=== PATIENT | female | born 1945 | race Caucasian/White ===

== ENCOUNTER 2016-11-18 07:12 | Observation (INO) | payer MEDICARE ==
--- NOTE | 2016-11-18 08:05 | ERPHSYRPT ---
- History of Present Illness Time Seen by Provider: 11/18/16 07:17 Historian: patient Exam Limitations: no limitations Patient Subjective Stated Complaint: having chest pain for one week. intermittent. states it woke her up at 0500 today Triage Nursing Assessment: ambulated to room without difficulty. skin w/d, color normal, resp easy. states is not having pain at this time but has had it intermittently for one week. awoke this am at 0500 with heaviness in center of chest. breath sounds clear. Timing/Duration: today, hour(s) (2) Activities at Onset: sleep Quality: sharpness Location: substernal Chest Pain Radiation: jaw Severity of Pain-Max: moderate (7/10) Severity of Pain-Current: none Modifying Factors: Improves With: nothing Associated Symptoms: shortness of breath Prior Chest Pain/Cardiac Workup: heart attack Nitro Today/Relief: no nitro taken today Aspirin Treatment Today: 325 mg x 1, provided by ED Allergies/Adverse Reactions: levofloxacin [From Levaquin] Allergy (Intermediate, Verified 11/18/16 07:36) Skin Irritation STREAKS RUNNING UP VEIN Penicillins Allergy (Mild, Verified 11/18/16 07:36) Hives Home Medications: Allopurinol 300 mg [Zyloprim 300 mg] 300 mg PO DAILY 09/21/14 [History] Aspirin [Aspirin EC] 81 mg PO HS 09/21/14 [History] Levothyroxine Sodium 50 Mcg [Synthroid 50 Mcg] 25 mcg PO DAILY 09/21/14 [ History] Lovastatin 20 mg PO HS 09/21/14 [History] Metoprolol Succinate 50 mg [Toprol Xl 50 MG] 50 mg PO BID 09/21/14 [ History] Buspirone HCl 5 mg [Buspar 5 mg] 5 mg PO HS 02/25/15 [History] Valsartan/Hydrochlorothiazide [Valsartan-Hctz 320-25 mg Tab] 1 tab PO DAILY [History] Clopidogrel Bisulfate 75 mg [PLAVIX 75 MG Tablet] 75 mg PO HS 11/18/16 [ History] Eszopiclone [Lunesta] 1 mg PO HS 11/18/16 [History] Fluoxetine HCl [Prozac] 20 mg PO HS 11/18/16 [History] Hx Tetanus, Diphtheria Vaccination/Date Given: Yes (2015) Hx Influenza Vaccination/Date Given: Yes (2015) Hx Pneumococcal Vaccination/Date Given: Yes - Review of Systems Constitutional: No Symptoms Eyes: No Symptoms Ears, Nose, & Throat: No Symptoms Respiratory: No Symptoms Cardiac: Chest Pain Abdominal/Gastrointestinal: No Symptoms Genitourinary Symptoms: No Symptoms Musculoskeletal: No Symptoms Skin: No Symptoms Neurological: No Symptoms Psychological: No Symptoms Endocrine: No Symptoms Hematologic/Lymphatic: No Symptoms Immunological/Allergic: No Symptoms - Past Medical History Pertinent Past Medical History: Yes Neurological History: Migraines ENT History: No Pertinent History Cardiac History: Coronary Artery Disease, High Cholesterol, Hypertension, Myocardial Infarction ([place]) Endocrine Medical History: Hypothyroidism Musculoskeletal History: No Pertinent History, Other GI Medical History: Gallbladder Disease History: Renal Disease, Other Psycho-Social History: Anxiety, Depression Female Reproductive Disorders: No Pertinent History Other Medical History: ACUTE KIDNEY FAILURE RESOLVED, GOUT - Past Surgical History Past Surgical History: Yes Neuro Surgical History: No Pertinent History Cardiac: Cardiac Catheterization, Cardiac Stent Respiratory: No Pertinent History Gastrointestinal: Appendectomy, Cholecystectomy Genitourinary: No Pertinent History Musculoskeletal: No Pertinent History Female Surgical History: Tubal Ligation - Social History Smoking Status: Never smoker Exposure to second hand smoke: Yes Alcohol Use: None Drug Use: none Patient Lives Alone: Yes Significant Family History: heart disease, hypertension - Female History Hx Now: No - Nursing Vital Signs Temperature: 97.7 F Temperature Source: Oral Pulse Rate: 53 Respiratory Rate: 16 Pain Intensity: 8 - Physical Exam General Appearance: no apparent distress Eye Exam: PERRL/EOMI, eyes nml inspection Ears, Nose, Throat Exam: normal ENT inspection, pharynx normal Neck Exam: normal inspection, non-tender, supple, full range of motion Respiratory Exam: normal breath sounds, lungs clear, airway intact Cardiovascular Exam: regular rate/rhythm, normal heart sounds, normal peripheral pulses Gastrointestinal/Abdomen Exam: soft, normal bowel sounds Extremity Exam: normal inspection, normal range of motion Neurologic Exam: alert, oriented x 3, cooperative, normal mood/affect, nml cerebellar function, nml station & gait, sensation nml Skin Exam: normal color, warm, dry SpO2 Interpretation: normal SpO2: 95 Oxygen Delivery: Room Air - Course Nursing assessment & vital signs reviewed: Yes EKG Interpreted by Me: RATE (53), Sinus Rhythm, NORMAL AXIS, NORMAL INTERVALS, Other (Loss of anterior R forces. No acute ischemia.) Ordered Tests: Active Orders 24 hr Category Date Time Status Chief Controller Station STAT Care 11/18/16 08:08 Active EKG-ER Only STAT Care 11/18/16 08:08 Active IV Insertion STAT Care 11/18/16 08:08 Active Oxygen-ED Only NASAL CANNULA 2 lpm Care 11/18/16 08:08 Active CHEST 1 VIEW (PORTABLE) Stat Exams 11/18/16 08:09 Completed CBC W DIFF Stat Lab 11/18/16 08:18 Completed CMP Stat Lab 11/18/16 08:18 Completed PROTIME WITH INR Stat Lab 11/18/16 08:18 Completed TROPONIN Q3H Lab 11/18/16 08:18 Completed TROPONIN Q3H Lab 11/18/16 11:15 Ordered TROPONIN Q3H Lab 11/18/16 14:15 Ordered TROPONIN Q3H Lab 11/18/16 17:15 Ordered TROPONIN Q3H Lab 11/18/16 20:15 Ordered Medication Summary Discontinued Medications Generic Name Dose Route Start Last Admin Trade Name Freq PRN Reason Stop Dose Admin Aspirin 324 mg 11/18/16 08:08 11/18/16 08:26 Baby Aspirin 81 Mg Chew PO 11/18/16 08:09 324 mg STAT ONE Administration Aspirin Confirm 11/18/16 08:23 Baby Aspirin 81 Mg Chew Administered 11/18/16 08:24 Dose 324 mg .ROUTE .STK-MED ONE Famotidine 20 mg 11/18/16 08:08 11/18/16 08:26 Pepcid 20 Mg Vial IV 11/18/16 08:09 20 mg STAT ONE Administration Famotidine Confirm 11/18/16 08:23 Pepcid 20 Mg Vial Administered 11/18/16 08:24 Dose 20 mg IV .STK-MED ONE Sodium Chloride Confirm 11/18/16 08:30 Sodium Chloride 0.9% 1000 Ml Administered 11/18/16 08:31 Dose 1,000 mls @ ud .ROUTE .STK-MED ONE Sodium Chloride 500 mls @ 999 mls/hr 11/18/16 08:34 11/18/16 08:35 Sodium Chloride 0.9% 1000 Ml IV 11/18/16 09:04 999 mls/hr .Q31M STA Administration Nitroglycerin 1 gm 11/18/16 08:08 11/18/16 08:32 Nitro-Bid 2% Ud Packets TOP 11/18/16 08:09 Not Given STAT ONE Nitroglycerin Confirm 11/18/16 08:23 Nitro-Bid 2% Ud Packets Administered 11/18/16 08:24 Dose 1 gm .ROUTE .STK-MED ONE Lab/Rad Data: Laboratory Result Diagrams 11/18/16 08:18 11/18/16 08:18 Laboratory Results 11/18/16 11/18/16 11/18/16 Range/Units 08:18 08:18 08:18 WBC (4.0-10.5) K/mm3 RBC (4.1-5.4) M/mm3 Hgb (12.0-16.0) gm/dl Hct (35-47) % MCV (78-100) fl MCH (26-32) pg MCHC (32-36) g/dl RDW (11.5-14.0) % Plt Count (150-450) K/mm3 MPV (6-9.5) fl Gran % (36.0-66.0) % Lymphocytes % (24.0-44.0) % Monocytes % (0.0-12.0) % Eosinophils % (0.00-5.0) % Basophils % (0.0-0.4) % Basophils # (0-0.4) INR 0.94 (0.8-3.0) Sodium 146 H (136-145) mEq/L Potassium 3.4 L (3.5-5.1) mEq/L Chloride 105 (98-107) mEq/L Carbon Dioxide 29.3 (21-32) mEq/L Anion Gap 14.6 (5-15) MEQ/L BUN 18 (9-20) mg/dL Creatinine 1.16 (0.55-1.30) mg/dl Estimated GFR 49 ML/MIN Glucose 100 (70-110) MG/DL Calcium 8.9 (8.5-10.1) mg/dL Total Bilirubin 0.2 (0.2-1.0) mg/dL AST 14 L (15-37) U/L ALT 13 (12-78) U/L Alkaline Phosphatase 125 H (46-116) U/L Troponin I < 0.017 (0.000-0.056) ng/ml Serum Total Protein 7.2 (6.4-8.2) gm/dL Albumin 3.5 (3.4-5.0) g/dL 11/18/16 Range/Units 08:18 WBC 6.8 (4.0-10.5) K/mm3 RBC 4.59 (4.1-5.4) M/mm3 Hgb 13.0 (12.0-16.0) gm/dl Hct 41.0 (35-47) % MCV 89.3 (78-100) fl MCH 28.3 (26-32) pg MCHC 31.7 L (32-36) g/dl RDW 14.2 H (11.5-14.0) % Plt Count 246 (150-450) K/mm3 MPV 9.9 H (6-9.5) fl Gran % 64.2 (36.0-66.0) % Lymphocytes % 24.4 (24.0-44.0) % Monocytes % 7.8 (0.0-12.0) % Eosinophils % 3.2 (0.00-5.0) % Basophils % 0.4 (0.0-0.4) % Basophils # 0.03 (0-0.4) INR (0.8-3.0) Sodium (136-145) mEq/L Potassium (3.5-5.1) mEq/L Chloride (98-107) mEq/L Carbon Dioxide (21-32) mEq/L Anion Gap (5-15) MEQ/L BUN (9-20) mg/dL Creatinine (0.55-1.30) mg/dl Estimated GFR ML/MIN Glucose (70-110) MG/DL Calcium (8.5-10.1) mg/dL Total Bilirubin (0.2-1.0) mg/dL AST (15-37) U/L ALT (12-78) U/L Alkaline Phosphatase (46-116) U/L Troponin I (0.000-0.056) ng/ml Serum Total Protein (6.4-8.2) gm/dL Albumin (3.4-5.0) g/dL - Progress Progress: improved Air Movement: good Progress Note: 11/18/16 09:27 BP initially slightly low, but responded to IV fluids. No further chest pain. Discussed with : Jere Will see patient in: hospital (observation) Counseled pt/family regarding: lab results, diagnosis, need for follow-up (need for admission to further evaluate for ACS and to treat hypotension) - Departure Time of Disposition: 09:25 Departure Disposition: Observation Clinical Impression: Chest pain Qualifiers: Chest pain type: other chest pain Qualified Code(s): R07.89 - Other chest pain ; R07.8 - Other chest pain Hypotension Qualifiers: Hypotension type: other hypotension type Qualified Code(s): I95.89 - Other hypotension Condition: Stable Critical Care Time: Yes Critical Care Time(excluding separately billable procedures): 30-74 minutes
[2016-11-18] MEDS ORDERED: BABY ASPIRIN 81 MG CHEW PO ONE (08:08)
[2016-11-18] MEDS ORDERED: Pepcid 20 MG VIAL IV ONE ×2 (08:08→08:23)
[2016-11-18] MEDS ORDERED: NITRO-BID 2% UD PACKETS TOP ONE (08:08)
[2016-11-18] MEDS ORDERED: BABY ASPIRIN 81 MG CHEW ONE (08:23)
[2016-11-18] MEDS ORDERED: NITRO-BID 2% UD PACKETS ONE (08:23)
[2016-11-18 08:24] LABS: BASOPHIL % 0.4 % (0.0-0.4); Eosinophil % 3.2 % (0.00-5.0); Granulocytes % 64.2 % (36.0-66.0); Lymphocytes % 24.4 % (24.0-44.0); Mean Cell Volume 89.3 fl (78-100); Mean Corpuscular Hemoglobin 28.3 pg (26-32); Mean Platelet Volume 9.9 fl (6-9.5); Monocytes % 7.8 % (0.0-12.0); Platelet Count 246 K/mm3 (150-450); Red Blood Count 4.59 M/mm3 (4.1-5.4); Red Cell Distribution Width 14.2 % (11.5-14.0); White Blood Count 6.8 K/mm3 (4.0-10.5)
[2016-11-18] MEDS ORDERED: Sodium Chloride 0.9% 1000 ML 1,000 ML ONE (08:30)
[2016-11-18 08:43] LABS: INR 0.94 (0.8-3.0); PROTIME 10.5 SECONDS (9.95-12.35)
[2016-11-18 08:48] LABS: ALBUMIN 3.5 g/dL (3.4-5.0); ANION GAP 14.6 MEQ/L (5-15); Carbon Dioxide 29.3 mEq/L (21-32); Potassium 3.4 mEq/L (3.5-5.1)
--- NOTE | 2016-11-18 08:56 | XRAY ---
Indication: Chest pain. Comparison: October 13, 2015. Portable chest again demonstrates scattered calcified granulomas. Remaining heart and lungs unremarkable. Bony thorax intact again with mild osteopenia and degenerative changes. Impression: Stable nonacute chest with chronic features.
[2016-11-18 09:08] LABS: BILIRUBIN,TOTAL 0.2 mg/dL (0.2-1.0); Total Protein 7.2 gm/dL (6.4-8.2)
[2016-11-18] MEDS ORDERED: MILK OF MAGNESIA 30 ML PO PRN (10:29)
[2016-11-18] MEDS ORDERED: Senokot-S Tablet PO PRN (10:29)
[2016-11-18] MEDS ORDERED: Zofran 4 MG/2 ML VIAL IV PRN (10:29)
[2016-11-18] MEDS ORDERED: MAALOX ES 30 ML UNIT DOSE PO PRN (10:29)
[2016-11-18] MEDS: Toprol Xl 50 MG PO SCH ×2 (12:00→21:11)
[2016-11-18] MEDS: BUSPAR 5 MG PO SCH ×2 (12:00→21:11)
[2016-11-18] MEDS: ZYLOPRIM 300 MG PO SCH (12:00)
[2016-11-18] MEDS: SYNTHROID 25 MCG PO SCH (12:01)
[2016-11-18] MEDS: NITRO-BID 2% UD PACKETS TOP SCH ×2 (14:17→21:19)
[2016-11-18] MEDS: Sodium Chloride 0.9% 1000 ML 1,000 ML IV SCH (14:46)
[2016-11-18] MEDS: TYLENOL 325 MG PO PRN ×2 (17:19→22:04)
--- NOTE | 2016-11-18 18:57 | PCM.SSS ---
History of Present Illness - Chief Complaint Chief Complaint: hypotension. chest pain. History of Present Illness: is a 71 year old female pt of mine from [facility] with hx [place] who has been having intermittent chest pain after eating for 7-10 days. This morning it woke her at 0500 and she came to the ER for evaluation. Her CP resolved with IV pepcid in [facility] ER and she has had no chest pain since. Her troponins have been negative x 4. She had one BP of 89 systolic initially which resolved with 500cc fluid and she has had bp to 160 systolic through the afternoon. Latest bp [address] Jess Bryant, payroll director - next appointment in January. I was going to send the pt home tonight after being chest pain free all day but her initial hypotension was prior to any nitro administration, so will keep her overnight for observation. - Review of Systems Respiratory: Cough Cardiac: Chest Pain Neurological: Other (staring spell 1 wk ago, lasting about 1 minute) Psychological: Anxiety, Depression (no exacerbation) All Other Systems: Reviewed and Negative Medications & Allergies Home Medications: Home Medication List Allopurinol 300 mg [Zyloprim 300 mg] 300 mg PO DAILY 09/21/14 [History Confirmed 11/18/16] Aspirin [Aspirin EC] 81 mg PO HS 09/21/14 [History Confirmed 11/18/16] Levothyroxine Sodium 50 Mcg [Synthroid 50 Mcg] 25 mcg PO DAILY 09/21/14 [ History Confirmed 11/18/16] Lovastatin 20 mg PO HS 09/21/14 [History Confirmed 11/18/16] Metoprolol Succinate 50 mg [Toprol Xl 50 MG] 50 mg PO BID 09/21/14 [ History Confirmed 11/18/16] Buspirone HCl 5 mg [Buspar 5 mg] 5 mg PO BID 02/25/15 [History Confirmed 11/18/16] Valsartan/Hydrochlorothiazide [Valsartan-Hctz 320-25 mg Tab] 1 tab PO DAILY [History Confirmed 11/18/16] Clopidogrel Bisulfate 75 mg [PLAVIX 75 MG Tablet] 75 mg PO HS 11/18/16 [ History Confirmed 11/18/16] Eszopiclone [Lunesta] 1 mg PO HS 11/18/16 [History Confirmed 11/18/16] Fluoxetine HCl [Prozac] 20 mg PO HS 11/18/16 [History Confirmed 11/18/16] Allergies/Adverse Reactions: Allergies Allergy/AdvReac Type Severity Reaction Status Date / Time levofloxacin [From Levaquin] Allergy Intermediate Skin Verified 11/18/16 10:46 Irritation Penicillins Allergy Mild Hives Verified 11/18/16 10:46 - Past Medical History Past Medical History: Yes Neurological History: Migraines ENT History: No Pertinent History Cardiac History: Coronary Artery Disease, High Cholesterol, Hypertension, Myocardial Infarction ([place]) Respiratory History: No Pertinent History Endocrine Medical History: Hypothyroidism Musculoskelatal History: No Pertinent History, Other GI Medical History: Gallbladder Disease History: Renal Disease, Other Pyscho-Social History: Anxiety, Depression Reproductive Disorders: No Pertinent History Comment: ACUTE KIDNEY FAILURE RESOLVED, GOUT - Female History Are you now?: No - Past Surgical History Past Surgical History: Yes Neuro Surgical History: No Pertinent History Cardiac History: Cardiac Catheterization, Cardiac Stent Respiratory Surgery: No Pertinent History GI Surgical History: Appendectomy, Cholecystectomy Genitourinary Surgical Hx: No Pertinent History Musculskeletal Surgical Hx: No Pertinent History Female Surgical History: Tubal Ligation - Social History Smoking Status: Never smoker Exposure to second hand smoke: Yes Alcohol: None Drug Use: none Significant Family History: heart disease, hypertension - Physical Exam Vital Signs: Vital Signs - 24 hr Temp Pulse Pulse Resp BP Pulse Ox 11/18/16 14:20 98.2 F 50 L 18 135/61 98 11/18/16 10:35 98.4 F 53 L 18 160/66 98 11/18/16 10:20 98.4 F 53 L 18 160/66 98 11/18/16 09:38 49 L 16 105/57 11/18/16 09:33 97.7 F 53 L 16 95 11/18/16 08:20 53 L 16 97/40 96 11/18/16 07:30 97.7 F 53 L 54 L 16 121/69 95 Oxygen-Last 24 hours O2 Percentage 2 Liters = 28% General Appearance: no apparent distress, obese Neurologic Exam: alert, oriented x 3, cooperative Eye Exam: eyes nml inspection Neck Exam: normal inspection, non-tender, No mass, No lymphadenopathy Respiratory Exam: normal breath sounds, lungs clear, No crackles/rales, No rhonchi, No wheezing Cardiovascular Exam: regular rate/rhythm, normal heart sounds, No murmur Gastrointestinal/Abdomen Exam: soft, normal bowel sounds, No tenderness, No distention, No mass Back Exam: normal inspection Extremity Exam: No pedal edema, No swelling Skin Exam: normal color, warm, dry Results - Labs Lab/Micro Results: Lab Results-Last 24 Hours 11/18/16 11/18/16 11/18/16 Range/Units 11:06 14:15 17:35 Troponin I < 0.017 < 0.017 < 0.017 (0.000-0.056) ng/ml - Other Procedures and Tests Respiratory Therapy 11/19/16 05:00 EKG ONCE 11/20/16 05:00 EKG ONCE 11/21/16 05:00 EKG ONCE Assessment/Plan (1) Chest pain Current Visit: Yes Status: Acute Qualifiers: Chest pain type: other chest pain Qualified Code(s): R07.89 - Other chest pain; R07.8 - Other chest pain Assessment & Plan: [place] ruled out. Keep pt on telemetry overnight. Code(s): R07.9 - CHEST PAIN, UNSPECIFIED (2) Hypotension Current Visit: Yes Status: Acute Qualifiers: Hypotension type: other hypotension type Qualified Code(s): I95.89 - Other hypotension Assessment & Plan: Occured before any nitro given, apparently. will keep overnight for observation. Code(s): I95.9 - HYPOTENSION, UNSPECIFIED (3) Bronchitis Current Visit: No Status: Acute Assessment & Plan: lungs CTAB. Code(s): J40 - BRONCHITIS, NOT SPECIFIED ACUTE OR CHRONIC (4) staring episode Current Visit: Yes Status: Acute Assessment & Plan: will get EEG outpatient. (5) HTN (hypertension) Current Visit: No Status: Acute Assessment & Plan: Give prn hydralazine, continue nitro paste, and resume home meds in the morning. Code(s): I10 - ESSENTIAL (PRIMARY) HYPERTENSION Hospital Summary - Hospital Course Hospital Course: Pt admitted as described, actually being kept overnight for observation. - Vitals & Intake/Output Vital Signs: Vital Signs Temperature 98.2 F 11/18/16 14:20 Pulse Rate 50 L 11/18/16 14:20 Respiratory Rate 18 11/18/16 14:20 Blood Pressure 135/61 11/18/16 14:20 O2 Sat by Pulse Oximetry 98 11/18/16 14:20 Oxygen-Last Documented O2 Percentage 2 Liters = 28% Intake & Output: Intake & Output 11/16/16 11/17/16 11/18/16 11/19/16 11:59 11:59 11:59 11:59 Intake Total 1075 Output Total 1550 Balance -475 Weight 84.141 kg - Lab Result Diagrams: 11/18/16 08:18 11/18/16 08:18 Lab Results-Last 24 Hrs: Lab Results-Last 24 Hours 11/18/16 11/18/16 11/18/16 Range/Units 11:06 14:15 17:35 Troponin I < 0.017 < 0.017 < 0.017 (0.000-0.056) ng/ml - Procedures and Test Procedures and Tests throughout Hospitalization: Therapy Orders & Screens 11/18/16 15:13 EKG ONCE Comment: Diagnosis: hypotension. chest pain. 11/19/16 05:00 EKG ONCE Comment: Diagnosis: hypotension. chest pain. 11/20/16 05:00 EKG ONCE Comment: Diagnosis: hypotension. chest pain. 11/21/16 05:00 EKG ONCE Comment: Diagnosis: hypotension. chest pain. - Discharge Disposition: Home, Self-Care Condition: Stable Prescriptions: No Action Metoprolol Succinate 50 mg [Toprol Xl 50 MG] 50 mg PO BID Aspirin [Aspirin EC] 81 mg PO HS Allopurinol 300 mg [Zyloprim 300 mg] 300 mg PO DAILY Levothyroxine Sodium 50 Mcg [Synthroid 50 Mcg] 25 mcg PO DAILY Lovastatin 20 mg PO HS Buspirone HCl 5 mg [Buspar 5 mg] 5 mg PO BID Valsartan/Hydrochlorothiazide [Valsartan-Hctz 320-25 mg Tab] 1 tab PO DAILY Fluoxetine HCl [Prozac] 20 mg PO HS Clopidogrel Bisulfate 75 mg [PLAVIX 75 MG Tablet] 75 mg PO HS Eszopiclone [Lunesta] 1 mg PO HS Follow up with: ALEJANDRO HAYWOOD [Primary Care Provider] -
[2016-11-18] MEDS ORDERED: APRESOLINE 20 MG/ML INJ IV PRN (19:03)
[2016-11-18] MEDS: Pepcid 20 MG VIAL IV SCH ×2 (19:41→21:15)
[2016-11-18] MEDS ORDERED: ESZOPICLONE 1 MG PO SCH (22:00)
[2016-11-18] MEDS ORDERED: Prozac 20 MG PO SCH (22:00)
[2016-11-18] MEDS ORDERED: PLAVIX 75 MG Tablet PO SCH (22:00)
[2016-11-18] MEDS ORDERED: Ambien 5 MG Tablet PO SCH (22:00)
[2016-11-18] MEDS ORDERED: ECOTRIN 81 MG PO SCH (22:00)
[2016-11-18] MEDS ORDERED: NON-FORMULARY ITEM (Lovastatin [Lovastatin] 20 MG) PO SCH (22:00)
[2016-11-18] MEDS ORDERED: ZOCOR 20MG PO SCH (22:00)
[2016-11-19] MEDS: Sodium Chloride 0.9% 1000 ML 1,000 ML IV SCH (00:44)
[2016-11-19] MEDS: NITRO-BID 2% UD PACKETS TOP SCH (05:20)
[2016-11-19 07:52] VITALS: BP 155/59; PULSE 57; O2SAT 98
--- NOTE | 2016-11-19 08:30 | PCM.DS ---
Discharge Summary Date of Admission: 11/18/16 10:07 Admitting Physician: ALEJANDRO HAYWOOD Primary Care Provider: ALEJANDRO HAYWOOD Allergies Allergies levofloxacin [From Levaquin] Allergy (Intermediate, Verified 11/18/16 10:46) Skin Irritation STREAKS RUNNING UP VEIN Penicillins Allergy (Mild, Verified 11/18/16 10:46) [facility] Summary - Hospital Course Hospital Course: Pt admitted with chest pain yesterday and found to be hypotensive in the ER. She was kept overnight. Troponins negative. Hypotension resolved with 500cc NS and did not recur; in fact she has been hypertensive but one of her BP medicines was held. 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 - Vitals & Intake/Output Vital Signs: Vital Signs Temperature 98.3 F 11/19/16 07:51 Pulse Rate 57 L 11/19/16 07:51 Respiratory Rate 18 11/19/16 07:51 Blood Pressure 155/59 11/19/16 07:51 O2 Sat by Pulse Oximetry 98 11/19/16 07:51 Oxygen-Last Documented O2 Percentage 2 Liters = 28% Intake & Output: Intake & Output 11/16/16 11/17/16 11/18/16 11/19/16 11:59 11:59 11:59 11:59 Intake Total 3040 Output Total 1550 Balance 1490 Weight 84.141 kg 83.915 kg - Lab Result Diagrams: 11/18/16 08:18 11/18/16 08:18 Lab Results-Last 24 Hrs: Lab Results-Last 24 Hours 11/18/16 11/18/16 11/18/16 Range/Units 11:06 14:15 17:35 Troponin I < 0.017 < 0.017 < 0.017 (0.000-0.056) ng/ml Triglycerides (30-200) mg/dL Cholesterol (100-200) mg/dL LDL Cholesterol (5-99) mg/dL HDL Cholesterol (35-60) mg/dL Heart Disease Risk Ratio 11/18/16 11/19/16 Range/Units 20:07 05:08 Troponin I < 0.017 (0.000-0.056) ng/ml Triglycerides 30 (30-200) mg/dL Cholesterol 136 (100-200) mg/dL LDL Cholesterol 71 (5-99) mg/dL HDL Cholesterol 62 H (35-60) mg/dL Heart Disease Risk Ratio 2.2 - Procedures and Test Procedures and Tests throughout Hospitalization: Therapy Orders & Screens 11/18/16 15:13 EKG ONCE Comment: Diagnosis: hypotension. chest pain. 11/19/16 05:00 EKG ONCE Comment: Diagnosis: hypotension. chest pain. 11/20/16 05:00 EKG ONCE Comment: Diagnosis: hypotension. chest pain. 11/21/16 05:00 EKG ONCE Comment: Diagnosis: hypotension. chest pain. Discharge Exam General Appearance: no apparent distress, obese Neurologic Exam: alert, oriented x 3, cooperative Skin Exam: normal color, warm, dry Respiratory Exam: normal breath sounds, lungs clear, No crackles/rales, No rhonchi, No wheezing Cardiovascular Exam: regular rate/rhythm, normal heart sounds, murmur (I/ sys murmur R sternal border) Extremity Exam: No pedal edema, No swelling Back Exam: normal inspection Final Diagnosis/Problem List - Final Discharge Diagnosis/Problem (1) Chest pain Current Visit: Yes Status: Acute Assessment & Plan: [place] ruled out. Needs to f/u with cardiology BEATRIZ, has not had testing since [place] last year. (2) Hypotension Current Visit: Yes Status: Acute Assessment & Plan: Resolved with 500 cc NS. (3) Bronchitis Current Visit: No Status: Acute Assessment & Plan: Stable. Lungs are clear this morning. (4) staring episode Current Visit: Yes Status: Acute Assessment & Plan: Will order EEG outpatient. (5) HTN (hypertension) Current Visit: No Status: Acute Assessment & Plan: Restart home meds. D/c home today. (6) Bradycardia Current Visit: Yes Status: Acute Assessment & Plan: HR from 48-57 here ; EKG shows sinus bradycardia. Pt is stable and asx. On Toprol. - Discharge Disposition: Home, Self-Care Condition: Stable Prescriptions: Continue Metoprolol Succinate 50 mg [Toprol Xl 50 MG] 50 mg PO BID Aspirin [Aspirin EC] 81 mg PO HS Allopurinol 300 mg [Zyloprim 300 mg] 300 mg PO DAILY Levothyroxine Sodium 50 Mcg [Synthroid 50 Mcg] 25 mcg PO DAILY Lovastatin 20 mg PO HS Buspirone HCl 5 mg [Buspar 5 mg] 5 mg PO BID Valsartan/Hydrochlorothiazide [Valsartan-Hctz 320-25 mg Tab] 1 tab PO DAILY Fluoxetine HCl [Prozac] 20 mg PO HS Clopidogrel Bisulfate 75 mg [PLAVIX 75 MG Tablet] 75 mg PO HS Eszopiclone [Lunesta] 1 mg PO HS Follow up with: ALEJANDRO HAYWOOD [Primary Care Provider] - Call for Appointment
[2016-11-19] MEDS: SYNTHROID 25 MCG PO SCH (09:07)
[2016-11-19] MEDS: BUSPAR 5 MG PO SCH (09:07)
[2016-11-19] MEDS: Toprol Xl 50 MG PO SCH (09:09)
[2016-11-19] MEDS: Pepcid 20 MG VIAL IV SCH (09:09)
[2016-11-19] MEDS: ZYLOPRIM 300 MG PO SCH (09:09)
[2016-11-19] MEDS ORDERED: Ecotrin 325 MG PO SCH (10:00)
[2016-11-19] MEDS ORDERED: DIOVAN 80 MG PO SCH (10:00)
[2016-11-19] MEDS ORDERED: hydroDIURIL 25 MG PO SCH (10:00)
[2016-11-19] MEDS ORDERED: SYNTHROID 50 MCG PO SCH (10:00)
== END 2016-11-19 09:45 | disposition home or self-care (01) ==
LOC: ED 07:12 → MED SURG 10:07
PROVIDERS: ADMIT Family Medicine; ATTEND Family Medicine
DX: R07.9 Chest pain, unspecified (principal); I95.9 Hypotension, unspecified; J40 Bronchitis, not specified as acute or chronic; I10 Essential (primary) hypertension; R40.4 Transient alteration of awareness; I49.8 Other specified cardiac arrhythmias; I25.10 Atherosclerotic heart disease of native coronary artery without angina pectoris; E03.9 Hypothyroidism, unspecified; F41.8 Other specified anxiety disorders; Z79.899 Other long term (current) drug therapy; I25.2 Old myocardial infarction
CPT/HCPCS: 36000; 36415; 71010; 80053; 80061; 83721; 84484; 85025; 85610; 93005; 93041; 93268; 96360; 96361; 96374; 99285; G0378; A9270-GY

== ENCOUNTER 2016-12-19 00:34 | Emergency (ER) | payer MEDICARE ==
[2016-12-19 00:44] VITALS: O2SAT 97
--- NOTE | 2016-12-19 00:57 | ERPHSYRPT ---
- History of Present Illness Time Seen by Provider: 12/19/16 00:45 Source: patient, EMS Exam Limitations: no limitations Patient Subjective Stated Complaint: PT STATES SHE HAS BEEN WEAK RECENTLY AND FELL TONIGHT. DENIES LOC. DENIES HITTING HEAD. Triage Nursing Assessment: PT ALERT AND ORIENTED, ANSWERS QUESTIONS APPROP. RESPIRATIONS NONLABORED WITH LUNGS CTA. BRUISES NOTED TO BILAT UPPER EXT PT STATES FROM IV STICKS. 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 PUPILS EQUAL AND REACTIVE. Physician History: Pt. states she was trying to plug in her phone at the table, when she fell backward. No LOC. She was unabloe to awaken her daughter, but had neighbor help her. Since she was unable to get up, they called 911, who felt she should be evaluated in ED. No recent meds changes except decrease in Lopressor from 50 to 25. No missed meds. She had recent UTI with antibiotics completed. Occurred: just prior to arrival Reason for Fall: unknown Injuries/Pain Location: no injury Loss of Consciousness: no loss of consciousness Quality: other (skin tear left elbow. No ) Severity of Pain-Max: none Severity of Pain-Current: none Associated Symptoms (Fall): denies symptoms Allergies/Adverse Reactions: levofloxacin [From Levaquin] Allergy (Intermediate, Verified 12/19/16 00:55) Skin Irritation STREAKS RUNNING UP VEIN Penicillins Allergy (Mild, Verified 12/19/16 00:55) Hives Home Medications: Allopurinol 300 mg [Zyloprim 300 mg] 300 mg PO DAILY 09/21/14 [History] Aspirin [Aspirin EC] 81 mg PO HS 09/21/14 [History] Levothyroxine Sodium 50 Mcg [Synthroid 50 Mcg] 25 mcg PO DAILY 09/21/14 [ History] Lovastatin 20 mg PO HS 09/21/14 [History] Metoprolol Succinate 50 mg [Toprol Xl 50 MG] 50 mg PO BID 09/21/14 [ History] Buspirone HCl 5 mg [Buspar 5 mg] 5 mg PO BID 02/25/15 [History] Valsartan/Hydrochlorothiazide [Valsartan-Hctz 320-25 mg Tab] 1 tab PO DAILY [History] Clopidogrel Bisulfate 75 mg [PLAVIX 75 MG Tablet] 75 mg PO HS 11/18/16 [ History] Eszopiclone [Lunesta] 1 mg PO HS 11/18/16 [History] Fluoxetine HCl [Prozac] 20 mg PO HS 11/18/16 [History] Hx Tetanus, Diphtheria Vaccination/Date Given: Yes (2015) Hx Influenza Vaccination/Date Given: Yes (2015) Hx Pneumococcal Vaccination/Date Given: Yes Immunizations Up to Date: Yes - Review of Systems Constitutional: Weakness Eyes: No Symptoms Ears, Nose, & Throat: No Symptoms Respiratory: No Symptoms Cardiac: No Symptoms Abdominal/Gastrointestinal: No Symptoms Musculoskeletal: No Symptoms Skin: Other (skin tear left elbow) Neurological: No Symptoms Psychological: No Symptoms Endocrine: No Symptoms Hematologic/Lymphatic: No Symptoms Immunological/Allergic: No Symptoms - Past Medical History Pertinent Past Medical History: Yes Neurological History: Migraines ENT History: No Pertinent History Cardiac History: Coronary Artery Disease, High Cholesterol, Hypertension, Myocardial Infarction ([place]) Respiratory History: No Pertinent History Endocrine Medical History: Hypothyroidism Musculoskeletal History: No Pertinent History, Other GI Medical History: Gallbladder Disease History: Renal Disease, Other Psycho-Social History: Anxiety, Depression Female Reproductive Disorders: No Pertinent History Other Medical History: ACUTE KIDNEY FAILURE RESOLVED, GOUT. RECENT HOSPITALIZATION FOR UTI - Past Surgical History Past Surgical History: Yes Neuro Surgical History: No Pertinent History Cardiac: Cardiac Catheterization, Cardiac Stent Respiratory: No Pertinent History Gastrointestinal: Appendectomy, Cholecystectomy Genitourinary: No Pertinent History Musculoskeletal: No Pertinent History Female Surgical History: Tubal Ligation - Social History Smoking Status: Never smoker Exposure to second hand smoke: Yes Alcohol Use: None Drug Use: none Patient Lives Alone: Yes Significant Family History: heart disease, hypertension - Female History Hx Now: No - Nursing Vital Signs Nursing Vital Signs: Initial Vital Signs Temperature 97.0 F Temperature Source Oral Pulse Rate 52 Respiratory Rate 18 Blood Pressure [Right Arm] 138/42 Pain Intensity 0 - Valeri Coma Score Best Eye Response ([place]): (4) open spontaneously Best Verbal Response ([place]): (5) oriented Best Motor Response ([place]): (6) obeys commands Valeri Total: 15 - Physical Exam General Appearance: no apparent distress Head Injury: no evidence of injury Eye Exam: PERRL/EOMI, eyes nml inspection ENT Exam: airway nml Neck Exam: supple, trachea midline, full range of motion, normal alignment Respiratory/Chest Exam: normal breath sounds Cardiovascular Exam: normal heart sounds, regular rate/rhythm Gastrointestinal Exam: soft, normal bowel sounds Back Exam: normal inspection, normal range of motion Extremity Exam: normal inspection, normal range of motion, capillary refill <3 sec, pelvis stable Neurologic Exam: alert, oriented x 3, cooperative, brushing operator II-XII nml as tested, normal mood/affect Skin Exam: normal color, warm, dry, abrasion SpO2 Interpretation: normal SpO2: 97 Oxygen Delivery: Room Air - Course Nursing assessment & vital signs reviewed: Yes EKG Interpreted by Me: RATE, Sinus Rhythm, NORMAL AXIS, Right Bundle Branch Block (Incomplete), Other (Anterior loss of R forces. Unchanged from ECG of 11.19.2016. 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 STAT Care 12/19/16 00:49 Active EKG-ER Only STAT Care 12/19/16 00:44 Active IV Insertion STAT Care 12/19/16 00:44 Active Orthostatic Vital Signs STAT Care 12/19/16 01:03 Active UA W/RFX UR CULTURE Stat Lab 12/19/16 01:03 Uncollected Medication Summary Generic Name Dose Route Start Last Admin Trade Name Freq PRN Reason Stop Dose Admin Sodium Chloride 1,000 mls @ 999 mls/hr 12/19/16 01:10 Sodium Chloride 0.9% 1000 Ml IV 12/19/16 02:10 .Q1H1M STA - Progress Progress: improved Will see patient in: other (PCP 2 days) Counseled pt/family regarding: lab results, diagnosis, need for follow-up - Departure Time of Disposition: 01:30 Departure Disposition: Home (0130) Clinical Impression: Orthostatic hypotension Fall Qualifiers: Encounter type: initial encounter Qualified Code(s): W19.XXXA - Unspecified fall, initial encounter Condition: Stable Critical Care Time: No
[2016-12-19] MEDS ORDERED: Sodium Chloride 0.9% 1000 ML 1,000 ML IV STA (01:10)
[2016-12-19] MEDS ORDERED: Sodium Chloride 0.9% 1000 ML 1,000 ML ONE (01:16)
[2016-12-19 02:10] LABS: ADD URINE CULTURE? YES (NO); Bacteria RARE /HPF (NEGATIVE); COMPLETE URINE MICROSCOPIC? YES; Collection Type CLEAN CATCH; Epithelial Cells FEW /HPF (FEW); Ph 6.5 (5-6)
[2016-12-19 02:38] VITALS: BP 109/59; PULSE 50
== END 2016-12-19 02:49 | disposition home or self-care (01) ==
LOC: ED 00:34
DX: I95.1 Orthostatic hypotension (principal); W01.0XXA Fall on same level from slipping, tripping and stumbling without subsequent striking against object, initial encounter; Z79.899 Other long term (current) drug therapy
CPT/HCPCS: 36000; 81000; 87086; 93005; 93041; 96360; 99284; 99285

== ENCOUNTER 2019-08-24 18:33 | Emergency (ER) | payer MEDICARE ==
--- NOTE | 2019-08-24 18:50 | ERPHSYRPT ---
- History of Present Illness Time Seen by Provider: 08/24/19 18:50 Historian: patient, family Exam Limitations: no limitations Physician History: 7 with the cough and congestion for a few days. Has been on doxycycline and prednisone. Started having left-sided chest pain today few hours ago which is resolved now. Also has a continuous cough. The and right lower quadrant pain patient does not have appendix. Also had some nausea vomiting. Timing/Duration: today, day(s) Activities at Onset: rest Quality: pressure, sharpness Location: substernal, abdomen Chest Pain Radiation: arm (left) Severity of Pain-Max: moderate Severity of Pain-Current: moderate Modifying Factors: Improves With: nothing Associated Symptoms: nausea, vomiting, abdominal pain, cough, hurts to breathe, chills, headache Nitro Today/Relief: no nitro taken today Aspirin Treatment Today: no aspirin today Allergies/Adverse Reactions: levofloxacin [From Levaquin] Allergy (Intermediate, Verified 08/24/19 18:48) Skin Irritation STREAKS RUNNING UP VEIN Penicillins Allergy (Mild, Verified 08/24/19 18:48) Hives Home Medications: Allopurinol 300 mg [Zyloprim 300 mg] 300 mg PO DAILY 09/21/14 [History] Aspirin [Aspirin EC] 81 mg PO HS 09/21/14 [History] Levothyroxine Sodium 50 Mcg [Synthroid 50 Mcg] 25 mcg PO DAILY 09/21/14 [ History] Lovastatin 20 mg PO HS 09/21/14 [History] Metoprolol Succinate 50 mg [Toprol Xl 50 MG] 50 mg PO BID 09/21/14 [ History] Buspirone HCl 5 mg [Buspar 5 mg] 5 mg PO BID 02/25/15 [History] Valsartan/Hydrochlorothiazide [Valsartan-Hctz 320-25 mg Tab] 1 tab PO DAILY [History] Clopidogrel Bisulfate 75 mg [PLAVIX 75 MG Tablet] 75 mg PO HS 11/18/16 [ History] Eszopiclone [Lunesta] 1 mg PO HS 11/18/16 [History] Fluoxetine HCl [Prozac] 20 mg PO HS 11/18/16 [History] Hx Tetanus, Diphtheria Vaccination/Date Given: Yes (2015) Hx Influenza Vaccination/Date Given: Yes (2015) Hx Pneumococcal Vaccination/Date Given: Yes - Review of Systems Constitutional: No Fever, No Chills Eyes: No Symptoms Ears, Nose, & Throat: No Symptoms Respiratory: Cough, No Dyspnea Cardiac: Chest Pain, No Edema, No Syncope Abdominal/Gastrointestinal: Abdominal Pain, No Nausea, No Vomiting, No Diarrhea Genitourinary Symptoms: No Dysuria Musculoskeletal: No Back Pain, No Neck Pain Skin: No Rash Neurological: No Dizziness, No Focal Weakness, No Sensory Changes Psychological: No Symptoms Endocrine: No Symptoms All Other Systems: Reviewed and Negative - Past Medical History Pertinent Past Medical History: Yes Neurological History: Migraines ENT History: No Pertinent History Cardiac History: Coronary Artery Disease, High Cholesterol, Hypertension, Myocardial Infarction ([place]) Respiratory History: No Pertinent History Endocrine Medical History: Hypothyroidism Musculoskeletal History: No Pertinent History, Other GI Medical History: Gallbladder Disease History: Renal Disease, Other Psycho-Social History: Anxiety, Depression Female Reproductive Disorders: No Pertinent History Other Medical History: ACUTE KIDNEY FAILURE RESOLVED, GOUT. RECENT HOSPITALIZATION FOR UTI - Past Surgical History Past Surgical History: Yes Neuro Surgical History: No Pertinent History Cardiac: Cardiac Catheterization, Cardiac Stent Respiratory: No Pertinent History Gastrointestinal: Appendectomy, Cholecystectomy Genitourinary: No Pertinent History Musculoskeletal: No Pertinent History Female Surgical History: Tubal Ligation - Social History Smoking Status: Never smoker Exposure to second hand smoke: Yes Alcohol Use: None Drug Use: none Patient Lives Alone: Yes Significant Family History: heart disease, hypertension - Nursing Vital Signs Nursing Vital Signs: Initial Vital Signs Temperature 97.3 F 08/24/19 18:41 Pulse Rate 76 08/24/19 18:41 Respiratory Rate 16 08/24/19 18:41 Blood Pressure 197/91 08/24/19 18:41 O2 Sat by Pulse Oximetry 95 08/24/19 18:41 Pain Scale Pain Intensity 5 - Physical Exam General Appearance: no apparent distress, alert Eye Exam: PERRL/EOMI, eyes nml inspection Ears, Nose, Throat Exam: normal ENT inspection, moist mucous membranes Neck Exam: normal inspection, non-tender, supple, full range of motion Respiratory Exam: normal breath sounds, lungs clear, No chest tenderness, No respiratory distress, No diminished breath sounds, No accessory muscle use, No prolonged expirations Cardiovascular Exam: regular rate/rhythm, normal heart sounds Gastrointestinal/Abdomen Exam: soft, normal bowel sounds, tenderness (RLQ), No distention, No mass, No guarding Back Exam: normal inspection, No CVA tenderness, No vertebral tenderness Extremity Exam: normal inspection, normal range of motion Neurologic Exam: alert, oriented x 3, cooperative, normal mood/affect, sensation nml, No motor deficits Skin Exam: normal color, warm, dry - Course Nursing assessment & vital signs reviewed: Yes EKG Interpreted by Me: RATE (77), NORMAL AXIS, NORMAL INTERVALS, NORMAL QRS, Q- wave, Non-specific ST Changes - Radiology Exams Chest X-ray Interpretation: Interpreted by me, Negative Ordered Tests: Active Orders 24 hr Category Date Time Status 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 Sewing Techniques STAT Care 08/24/19 18:50 Active EKG-ER Only STAT Care 08/24/19 18:49 Active IV Insertion STAT Care 08/24/19 18:49 Active NPO (ED) STAT Care 08/24/19 19:03 Active ABDOMEN AND PELVIS W CONTRAST [CT] Stat Exams 08/24/19 19:03 Ordered CHEST 1 VIEW (PORTABLE) Stat Exams 08/24/19 18:49 Taken BLOOD CULTURE Stat Lab 08/24/19 19:20 Received CBC W DIFF Stat Lab 08/24/19 19:04 Completed CMP Stat Lab 08/24/19 19:04 Completed Lactic Acid Stat Lab 08/24/19 19:12 Results NT PRO BNP Stat Lab 08/24/19 19:04 Completed TROPONIN Q3H Lab 08/25/19 01:00 Ordered TROPONIN Q3H Lab 08/25/19 04:00 Ordered TROPONIN Q3H Lab 08/25/19 07:00 Ordered TROPONIN Q3H Lab 08/24/19 19:04 Completed TROPONIN Q3H Lab 08/24/19 22:00 Ordered UA W/RFX UR CULTURE Stat Lab 08/24/19 19:03 Uncollected Medication Summary Generic Name Dose Route Start Last Admin Trade Name Freq PRN Reason Stop Dose Admin Sodium Chloride 1,000 mls @ 100 mls/hr 08/24/19 19:15 08/24/19 19:28 Sodium Chloride 0.9% 1000 Ml IV 09/23/19 19:14 100 mls/hr .Q10H BIRDIE Administration Heparin Sodium/Dextrose 250 mls @ 10 mls/hr 08/24/19 20:00 Heparin 25,000 Units/D5w 250ml Premix IV 09/23/19 19:59 .Q24H BIRDIE Discontinued Medications Generic Name Dose Route Start Last Admin Trade Name Arunq PRN Reason Stop Dose Admin Aspirin 324 mg 08/24/19 18:49 08/24/19 19:00 Baby Aspirin 81 Mg Chew PO 08/24/19 18:50 324 mg STAT ONE Administration Aspirin Confirm 08/24/19 18:58 Baby Aspirin 81 Mg Chew Administered 08/24/19 18:59 Dose 324 mg .ROUTE .STK-MED ONE Heparin Sodium (Beef Lung) 5,000 unit 08/24/19 19:41 Heparin 5000 Units/0.5 Ml (High Risk Med) IV 08/24/19 19:42 STAT ONE Morphine Sulfate 2 mg 08/24/19 19:03 08/24/19 19:31 Morphine Sulfate 2 Mg Inj IV 08/24/19 19:04 2 mg STAT ONE Administration Morphine Sulfate Confirm 08/24/19 19:16 Morphine Sulfate 2 Mg Inj Administered 08/24/19 19:17 Dose 2 mg .ROUTE .STK-MED ONE Ondansetron HCl 4 mg 08/24/19 19:03 08/24/19 19:30 Zofran 4 Mg/2 Ml Vial IV 08/24/19 19:04 4 mg STAT ONE Administration Ondansetron HCl Confirm 08/24/19 19:15 Zofran 4 Mg/2 Ml Vial Administered 08/24/19 19:16 Dose 4 mg .ROUTE .STK-MED ONE Pantoprazole Sodium 40 mg 08/24/19 19:03 08/24/19 19:29 Protonix 40 Mg Iv IV 08/24/19 19:04 40 mg STAT ONE Administration Pantoprazole Sodium Confirm 08/24/19 19:16 Protonix 40 Mg Iv Administered 08/24/19 19:17 Dose 40 mg IV .STK-MED ONE Sucralfate 1 g 08/24/19 19:03 08/24/19 19:29 Carafate 1 Gm PO 08/24/19 19:04 1 g STAT ONE Administration Sucralfate Confirm 08/24/19 19:17 Carafate 1 Gm Administered 08/24/19 19:18 Dose 1 g PO .STK-MED ONE Lab/Rad Data: Laboratory Result Diagrams 08/24/19 19:04 08/24/19 19:04 Laboratory Results 08/24/19 08/24/19 08/24/19 Range/Units 19:12 19:04 19:04 WBC (4.0-10.5) K/mm3 RBC (4.1-5.4) M/mm3 Hgb (12.0-16.0) gm/dl Hct (35-47) % MCV (78-100) fl MCH (26-32) pg MCHC (32-36) g/dl RDW (11.5-14.0) % Plt Count (150-450) K/mm3 MPV (6-9.5) fl Gran % (36.0-66.0) % Eos # (Auto) (0-0.5) Absolute Lymphs (auto) (1.0-4.6) Absolute Monos (auto) (0.0-1.3) Lymphocytes % (24.0-44.0) % Monocytes % (0.0-12.0) % Eosinophils % (0.00-5.0) % Basophils % (0.0-0.4) % Absolute Granulocytes (1.4-6.9) Basophils # (0-0.4) Sodium 138 (137-145) mmol/L Potassium 3.8 (3.5-5.1) mmol/L Chloride 102 (98-107) mmol/L Carbon Dioxide 24 (22-30) mmol/L Anion Gap 15.4 H (5-15) MEQ/L BUN 17 (7-17) mg/dL Creatinine 0.75 (0.52-1.04) mg/dL Estimated GFR > 60.0 ML/MIN Glucose 168 H (74-106) mg/dL Lactic Acid 2.1 H (0.4-2.0) Calcium 9.6 (8.4-10.2) mg/dL Total Bilirubin 0.40 (0.2-1.3) mg/dL AST 39 H (14-36) U/L ALT 16 (0-35) U/L Alkaline Phosphatase 125 (38-126) U/L Troponin I 0.260 H* (0.000-0.034) ng/mL NT-Pro-B Natriuret Pep 409 (0-900) pg/mL Serum Total Protein 8.0 (6.3-8.2) g/dL Albumin 4.4 (3.5-5.0) g/dL 08/24/19 Range/Units 19:04 WBC 7.4 (4.0-10.5) K/mm3 RBC 4.75 (4.1-5.4) M/mm3 Hgb 13.3 (12.0-16.0) gm/dl Hct 42.0 (35-47) % MCV 88.4 (78-100) fl MCH 28.0 (26-32) pg MCHC 31.7 L (32-36) g/dl RDW 16.0 H (11.5-14.0) % Plt Count 289 (150-450) K/mm3 MPV 9.3 (6-9.5) fl Gran % 88.9 H (36.0-66.0) % Eos # (Auto) 0 (0-0.5) Absolute Lymphs (auto) 0.64 L (1.0-4.6) Absolute Monos (auto) 0.18 (0.0-1.3) Lymphocytes % 8.6 L (24.0-44.0) % Monocytes % 2.4 (0.0-12.0) % Eosinophils % 0.0 (0.00-5.0) % Basophils % 0.1 (0.0-0.4) % Absolute Granulocytes 6.59 (1.4-6.9) Basophils # 0.01 (0-0.4) Sodium (137-145) mmol/L Potassium (3.5-5.1) mmol/L Chloride (98-107) mmol/L Carbon Dioxide (22-30) mmol/L Anion Gap (5-15) MEQ/L BUN (7-17) mg/dL Creatinine (0.52-1.04) mg/dL Estimated GFR ML/MIN Glucose (74-106) mg/dL Lactic Acid (0.4-2.0) Calcium (8.4-10.2) mg/dL Total Bilirubin (0.2-1.3) mg/dL AST (14-36) U/L ALT (0-35) U/L Alkaline Phosphatase (38-126) U/L Troponin I (0.000-0.034) ng/mL NT-Pro-B Natriuret Pep (0-900) pg/mL Serum Total Protein (6.3-8.2) g/dL Albumin (3.5-5.0) g/dL - Progress Progress: improved Air Movement: good Progress Note: 08/24/19 19:38 NON STEMI. I called [facility], where pt's Sign Language Instructor is . 08/24/19 19:40 I am on hold with [facility] 08/24/19 19:47 Dr. Donnelly accepted the pt at [facility] ER. Pt stable Counseled pt/family regarding: lab results, diagnosis, rad results - Departure Departure Disposition: Transfer Clinical Impression: Non-STEMI (non-ST elevated myocardial infarction) Condition: Stable Critical Care Time: Yes Critical Care Time(excluding separately billable procedures): Critical 30-74 mins Referrals: ALEJANDRO HAYWOOD [Primary Care Provider] -
[2019-08-24] MEDS ORDERED: BABY ASPIRIN 81 MG CHEW ONE (18:58)
[2019-08-24] MEDS: BABY ASPIRIN 81 MG CHEW PO ONE (19:00)
[2019-08-24] MEDS ORDERED: Zofran 4 MG/2 ML VIAL ONE (19:15)
[2019-08-24 19:16] LABS: Absolute Neutrophil Ct (ANC) 6.59 (1.4-6.9); BASOPHIL % 0.1 % (0.0-0.4); Basophil (Absolute #) 0.01 (0-0.4); Eosinophil (Absolute #) 0 (0-0.5); Hemoglobin 13.3 gm/dl (12.0-16.0); Lymphocyte (Absolute #) 0.64 (1.0-4.6); Lymphocytes % 8.6 % (24.0-44.0); Mean Cell Volume 88.4 fl (78-100); Mean Corpuscular Hgb Concent. 31.7 g/dl (32-36); Mean Platelet Volume 9.3 fl (6-9.5); Monocyte (Absolute #) 0.18 (0.0-1.3); Monocytes % 2.4 % (0.0-12.0); Neutrophil % 88.9 % (36.0-66.0); Platelet Count 289 K/mm3 (150-450); Red Blood Count 4.75 M/mm3 (4.1-5.4); White Blood Count 7.4 K/mm3 (4.0-10.5)
[2019-08-24] MEDS ORDERED: MORPHINE SULFATE 2 MG INJ ONE (19:16)
[2019-08-24] MEDS ORDERED: PROTONIX 40 MG IV IV ONE (19:16)
[2019-08-24] MEDS ORDERED: Sodium Chloride 0.9% 1000 ML 1,000 ML ONE ×2 (19:17→20:50)
[2019-08-24] MEDS ORDERED: Carafate 1 GM PO ONE (19:17)
[2019-08-24 19:19] LABS: Lactic Acid 2.1 (0.4-2.0)
[2019-08-24 19:22] LABS: ALBUMIN 4.4 g/dL (3.5-5.0); ALKALINE PHOSPHATASE 125 U/L (38-126); ANION GAP 15.4 MEQ/L (5-15); BLOOD UREA NITROGEN 17 mg/dL (7-17); CHLORIDE 102 mmol/L (98-107); Calcium 9.6 mg/dL (8.4-10.2); Carbon Dioxide 24 mmol/L (22-30); Creatinine 1 0.75 mg/dL (0.52-1.04); Glucose 168 mg/dL (74-106); NT PRO BNP 409 pg/mL (0-900); Potassium 3.8 mmol/L (3.5-5.1); SGOT/AST 39 U/L (14-36); SGPT/ALT 16 U/L (0-35); SODIUM 138 mmol/L (137-145)
[2019-08-24] MEDS: Sodium Chloride 0.9% 1000 ML 1,000 ML IV SCH (19:28)
[2019-08-24] MEDS: Carafate 1 GM PO ONE (19:29)
[2019-08-24] MEDS: PROTONIX 40 MG IV IV ONE (19:29)
[2019-08-24] MEDS: Zofran 4 MG/2 ML VIAL IV ONE (19:30)
[2019-08-24] MEDS: MORPHINE SULFATE 2 MG INJ IV ONE (19:31)
[2019-08-24] MEDS ORDERED: Heparin 25,000 units/D5W 250ML PREMIX 25,000 UNITS/250 ML BAG IV SCH (20:00)
[2019-08-24] MEDS ORDERED: NITRO-BID 2% UD PACKETS ONE (20:50)
[2019-08-24] MEDS ORDERED: Heparin 5000 UNITS/0.5 ML (HIGH RISK MED) ONE (20:50)
[2019-08-24] MEDS: NITRO-BID 2% UD PACKETS TOP ONE (21:14)
[2019-08-24] MEDS: Heparin 5000 UNITS/0.5 ML (HIGH RISK MED) IV ONE (21:15)
[2019-08-24] MEDS: Heparin 25,000 units/D5W 250ML PREMIX 25,000 UNITS/250 ML BAG IV SCH (21:16)
[2019-08-24 21:26] VITALS: BP 167/77; PULSE 81; O2SAT 97
[2019-08-24 22:01] LABS: Appearance CLEAR (CLEAR); Bilirubin NEGATIVE (NEGATIVE); Blood NEGATIVE Ery/ul (0-5); Glucose NEGATIVE (NEGATIVE); Ketones NEGATIVE (NEGATIVE); Leukocyte Esterase NEGATIVE (NEGATIVE); Mucus SLIGHT /HPF (NEGATIVE); Nitrite NEGATIVE (NEGATIVE); Protein,Urine Dip NEGATIVE (Negative); Specific Gravity 1.046 (1.005-1.025); Urobilinogen NEGATIVE mg/dL (0-1)
--- NOTE | 2019-08-25 09:23 | XRAY ---
Indication: Cough and congestion. Comparison: August 06, 2017. Portable chest again demonstrates normal heart and lungs. Bony thorax intact again with mild osteopenia and degenerative changes. No new/acute findings.
--- NOTE | 2019-08-25 09:41 | XRAY ---
Indication: Abdomen pain. Multiple contiguous axial images obtained through the abdomen and pelvis using 80 cc of Isovue-370 contrast only. Comparison: None. Lung bases are clear. Heart is not enlarged. Small hiatal hernia. Noncontrasted stomach and bowel loops appear nonobstructed. Appendix not seen. Previous hysterectomy and cholecystectomy. No free fluid/air. Both kidneys enhance and excrete. Inferior right kidney demonstrates a 3.1 cm heterogeneous exophytic soft tissue mass worrisome for malignancy. 6 mm left mid renal cortical cyst. Hepatic/splenic calcified granulomas. Remaining liver, pancreas, spleen, adrenal glands, kidneys, ureters, and bladder appear unremarkable. Moderate scattered aortoiliac calcifications. No AAA or pathological retroperitoneal lymphadenopathy. Osseous structures demonstrates osteopenia and moderate/advanced multilevel degenerative spondylosis. Small supraumbilical ventral hernia defect with herniated omental fat. Right rectus abdominis muscle appears prominent with minimal stranding, possibly posttraumatic such as acute strain injury. Impression: 1. 3.1 cm heterogeneous right renal exophytic mass concerning for malignancy. Tiny left renal cyst. 2. Small hiatal hernia, small fatty ventral hernia, and evidence for old granulomatous disease. 3. Right rectus abdominis muscle prominence possibly posttraumatic. CTDI 23.13
== END 2019-08-24 21:45 | disposition short-term general hospital (02) ==
LOC: ED 18:33
DX: I21.3 ST elevation (STEMI) myocardial infarction of unspecified site (principal); Z79.899 Other long term (current) drug therapy
CPT/HCPCS: 36000; 36415; 71045; 74177; 80053; 81001; 83605; 83880; 84484; 85025; 87040; 93005; 93041; 96374; 96375; 99285; 99291; J1644; J2270; J2405; A9270-GY

== ENCOUNTER 2020-05-23 11:14 | Observation (INO) | payer MEDICARE ==
--- NOTE | 2020-05-23 11:20 | ERPHSYRPT ---
- History of Present Illness Time Seen by Provider: 05/23/20 11:19 Source: patient Exam Limitations: no limitations Physician History: This is a 75-year-old obese white female who has a history of hypertension and is taking Plavix. She also has a history of frequent falls and history of TIAs in the past. She presents with right ankle injury after a fall. Patient does not have chest pain and she does not have shortness of breath. She has no abdominal pain. She does not think she hit her head her only complaint is pain of the right ankle. Patient took all her medications this morning including her blood pressure medicine. Patient did not take her blood pressure value prior to taking her blood pressure medication. Method of Injury: fell Occurred: just prior to arrival Quality: aching, throbbing Severity of Pain-Max: moderate Severity of Pain-Current: moderate Lower Extremities Pain: ankle: right Modifying Factors: Improves With: movement (Worsens pain) Associated Symptoms: unable to bear weight Allergies/Adverse Reactions: levofloxacin [From Levaquin] Allergy (Intermediate, Verified 05/23/20 11:18) Skin Irritation STREAKS RUNNING UP VEIN Penicillins Allergy (Mild, Verified 05/23/20 11:18) Hives Home Medications: Allopurinol 300 mg [Zyloprim 300 mg] 300 mg PO DAILY 09/21/14 [History] Levothyroxine Sodium 50 Mcg [Synthroid 50 Mcg] 25 mcg PO DAILY 09/21/14 [History] Lovastatin 20 mg PO HS 09/21/14 [History] Buspirone HCl 5 mg [Buspar 5 mg] 10 mg PO DAILY 02/25/15 [History] Clopidogrel Bisulfate 75 mg [PLAVIX 75 MG Tablet] 75 mg PO HS 11/18/16 [History] Fluoxetine HCl [Prozac] 40 mg PO HS 11/18/16 [History] Bumetanide [Bumex] 1 tab PO DAILY 05/23/20 [History] Carvedilol 12.5 mg [Coreg 12.5 mg] 1 tab PO BID 05/23/20 [History] Irbesartan 150 mg [Avapro 150 MG] 1 tab PO DAILY 05/23/20 [History] Omeprazole 1 tab PO DAILY 05/23/20 [History] Potassium Chloride [Klor-Con M20] 1 tab PO DAILY 05/23/20 [History] Temazepam 15 mg [Restoril 15 MG] 1 tab PO HS 05/23/20 [History] Hx Tetanus, Diphtheria Vaccination/Date Given: Yes (2015) Hx Influenza Vaccination/Date Given: Yes (2015) Hx Pneumococcal Vaccination/Date Given: Yes Travel Risk - International Travel Have you traveled outside of the country in past 3 weeks: No - Coronavirus Screening Are you exhibiting any of the following symptoms?: No Close contact with a COVID-19 positive Pt in past 14-21 Days: No - Review of Systems Constitutional: No Symptoms Eyes: No Symptoms Ears, Nose, & Throat: No Symptoms Respiratory: No Symptoms Cardiac: No Symptoms Abdominal/Gastrointestinal: No Symptoms Genitourinary Symptoms: No Symptoms Musculoskeletal: Injury (Right ankle) Skin: No Symptoms Neurological: No Symptoms Psychological: No Symptoms Endocrine: No Symptoms Hematologic/Lymphatic: No Symptoms Immunological/Allergic: No Symptoms All Other Systems: Reviewed and Negative - Past Medical History Pertinent Past Medical History: Yes Neurological History: Migraines ENT History: No Pertinent History Cardiac History: Coronary Artery Disease, High Cholesterol, Hypertension, Myocardial Infarction ([place]) Respiratory History: No Pertinent History Endocrine Medical History: Hypothyroidism Musculoskeletal History: No Pertinent History, Other GI Medical History: Gallbladder Disease History: Renal Disease, Other Psycho-Social History: Anxiety, Depression Female Reproductive Disorders: No Pertinent History Other Medical History: ACUTE KIDNEY FAILURE RESOLVED, GOUT. RECENT HOSPITA LIZATION FOR UTI - Past Surgical History Past Surgical History: Yes Neuro Surgical History: No Pertinent History Cardiac: Cardiac Catheterization, Cardiac Stent Respiratory: No Pertinent History Gastrointestinal: Appendectomy, Cholecystectomy Genitourinary: No Pertinent History Musculoskeletal: No Pertinent History Female Surgical History: Tubal Ligation - Social History Smoking Status: Never smoker Exposure to second hand smoke: Yes Alcohol Use: None Drug Use: none Patient Lives Alone: Yes Significant Family History: heart disease, hypertension - Nursing Vital Signs Nursing Vital Signs: Initial Vital Signs Temperature 98.2 F 05/23/20 11:18 Pulse Rate 64 05/23/20 11:18 Respiratory Rate 18 05/23/20 11:18 Blood Pressure 85/57 05/23/20 11:18 O2 Sat by Pulse Oximetry 97 05/23/20 11:18 Pain Scale Pain Intensity 5 - Physical Exam General Appearance: no apparent distress, alert, anxiety, obese Eyes, Ears, Nose, Throat Exam: normal ENT inspection, moist mucous membranes Neck Exam: normal inspection, non-tender, supple, full range of motion Cardiovascular/Respiratory Exam: chest non-tender, normal breath sounds, regular rate/rhythm Gastrointestinal/Abdominal Exam: non-tender Back Exam: normal inspection, normal range of motion, No CVA tenderness, No vertebral tenderness Hips Exam: bilateral: non-tender, normal inspection, normal range of motion, no evidence of injury Legs Exam: bilateral leg: non-tender, normal inspection, normal range of motion, no evidence of injury Knees Exam: bilateral knee: non-tender, normal inspection, normal range of motion, no evidence of injury Ankle Exam: right ankle: bone tenderness, deformity, limited range of motion, pain, soft tissue tenderness, swelling, other (Strong pedal pulses that are palpable), left ankle: non-tender, normal inspection, normal range of motion, no evidence of injury Foot Exam: bilateral foot: non-tender, normal inspection, normal range of motion, no evidence of injury Neuro/Tendon Exam: normal sensation, normal motor functions, normal tendon functions Mental Status Exam: alert, oriented x 3 Skin Exam: normal color, warm, dry SpO2 Interpretation: normal O2 Delivery: Room Air - Course Nursing assessment & vital signs reviewed: Yes EKG Interpreted by Me: RATE (61), Sinus Rhythm, NORMAL AXIS, NORMAL INTERVALS, NORMAL QRS, Other (No acute ischemic changes) Ordered Tests: Active Orders 24 hr Category Date Time Status EKG-ER Only STAT Care 05/23/20 11:48 Active IV Insertion STAT Care 05/23/20 11:48 Active ANKLE (3 VIEWS) Stat Exams 05/23/20 11:23 Completed HEAD WITHOUT CONTRAST [CT] Stat Exams 05/23/20 12:14 Completed LOWER EXTREMITY WO CONTRAST [CT] Stat Exams 05/23/20 13:30 Completed CBC W DIFF Stat Lab 05/23/20 12:00 Completed CMP Stat Lab 05/23/20 12:00 Completed TROPONIN Q3H Lab 05/23/20 12:15 Completed TROPONIN Q3H Lab 05/23/20 15:15 Ordered TROPONIN Q3H Lab 05/23/20 18:15 Ordered TROPONIN Q3H Lab 05/23/20 21:15 Ordered Medication Summary Generic Name Dose Route Start Last Admin Trade Name Freq PRN Reason Stop Dose Admin Sodium Chloride 500 mls @ 500 mls/hr 05/23/20 13:34 05/23/20 13:36 Sodium Chloride 0.9% 500 Ml IV 05/23/20 14:33 500 mls/hr .Q1H ONE Administration Discontinued Medications Generic Name Dose Route Start Last Admin Trade Name Louise PRN Reason Stop Dose Admin Sodium Chloride 500 mls @ 500 mls/hr 05/23/20 11:48 05/23/20 14:12 Sodium Chloride 0.9% 500 Ml IV 05/23/20 12:47 Infused .Q1H ONE Infusion Sodium Chloride Confirm 05/23/20 12:11 Sodium Chloride 0.9% 500 Ml Administered 05/23/20 12:12 Dose 500 mls @ ud IV .STK-MED ONE Sodium Chloride Confirm 05/23/20 12:13 Sodium Chloride 0.9% 500 Ml Administered 05/23/20 12:14 Dose 500 mls @ ud IV .STK-MED ONE Sodium Chloride Confirm 05/23/20 13:19 Sodium Chloride 0.9% 500 Ml Administered 05/23/20 13:20 Dose 500 mls @ ud IV .STK-MED ONE Lorazepam Confirm 05/23/20 13:18 Ativan 2 Mg/1 Ml Vial Administered 05/23/20 13:19 Dose 2 mg .ROUTE .STK-MED ONE Lorazepam 0.5 mg 05/23/20 13:34 05/23/20 13:37 Ativan 2 Mg/1 Ml Vial IV 05/23/20 13:35 0.5 mg STAT ONE Administration Morphine Sulfate 4 mg 05/23/20 12:31 05/23/20 12:44 Morphine Sulfate 4 Mg Inj IV 05/23/20 12:32 4 mg STAT ONE Administration Morphine Sulfate Confirm 05/23/20 12:40 Morphine Sulfate 4 Mg Inj Administered 05/23/20 12:41 Dose 4 mg .ROUTE .STK-MED ONE Ondansetron HCl 4 mg 05/23/20 12:31 05/23/20 12:43 Zofran 4 Mg/2 Ml Vial IV 05/23/20 12:32 4 mg STAT ONE Administration Ondansetron HCl Confirm 05/23/20 12:40 Zofran 4 Mg/2 Ml Vial Administered 05/23/20 12:41 Dose 4 mg .ROUTE .STK-MED ONE Lab/Rad Data: Laboratory Result Diagrams 05/23/20 12:00 05/23/20 12:00 Laboratory Results 05/23/20 05/23/20 05/23/20 Range/Units 12:15 12:00 12:00 WBC 9.9 (4.0-10.5) K/mm3 RBC 4.07 L (4.1-5.4) M/mm3 Hgb 11.1 L (12.0-16.0) gm/dl Hct 36.5 (35-47) % MCV 89.7 (78-100) fl MCH 27.3 (26-32) pg MCHC 30.4 L (32-36) g/dl RDW 15.1 H (11.5-14.0) % Plt Count 285 (150-450) K/mm3 MPV 9.3 (7.5-11.0) fl Gran % 81.7 H (36.0-66.0) % Eos # (Auto) 0.06 (0-0.5) Absolute Lymphs (auto) 1.21 (1.0-4.6) Absolute Monos (auto) 0.51 (0.0-1.3) Lymphocytes % 12.2 L (24.0-44.0) % Monocytes % 5.1 (0.0-12.0) % Eosinophils % 0.6 (0.00-5.0) % Basophils % 0.4 (0.0-0.4) % Absolute Granulocytes 8.10 H (1.4-6.9) Basophils # 0.04 (0-0.4) Sodium 135 L (137-145) mmol/L Potassium 4.5 (3.5-5.1) mmol/L Chloride 98 (98-107) mmol/L Carbon Dioxide 33 H (22-30) mmol/L Anion Gap 8.9 (5-15) MEQ/L BUN 24 H (7-17) mg/dL Creatinine 1.06 H (0.52-1.04) mg/dL Estimated GFR 53.9 ML/MIN Glucose 135 H (74-106) mg/dL Calcium 9.2 (8.4-10.2) mg/dL Total Bilirubin 0.70 (0.2-1.3) mg/dL AST 19 (14-36) U/L ALT 11 (0-35) U/L Alkaline Phosphatase 131 H (38-126) U/L Troponin I < 0.012 (0.000-0.034) ng/mL Serum Total Protein 6.4 (6.3-8.2) g/dL Albumin 3.9 (3.5-5.0) g/dL - Progress Progress: improved Progress Note: 05/23/20 12:21 X-ray of right ankle shows mildly displaced and mildly angulated bimalleolar fracture with laterally subluxed talus and soft tissue swelling. 05/23/20 12:[address] Saeed, podiatry here at [facility]. He recommends a CT scan of the ankle. We will attempt to reduce this subluxed talus and then place the patient in a splint and he will see her tomorrow in his podiatry clinic. 05/23/20 13:32 We used intravenous 4 mg of morphine, 4mg of Zofran and half a milligram of intravenous Ativan to perform a reduction of her right ankle fracture. We then placed a posterior short leg splint. We also infused 500 mL of intravenous normal saline. Post neurovascular check shows the posterior tibial and dorsalis pedis pulses to be strong. There is brisk capillary refill of the toes after splint placement. 05/23/20 14:[address] Saeed again after the CAT scan of the right ankle. I made him aware of the radiologist impression. Dr. Saeed states to go ahead and let the patient be discharged to home with a sugar tong splint in place and pain control. He wants to let some of the swelling resolved before any kind of intervention. We will make arrangements for podiatric appointment. 05/23/20 14:30 Patient is to be seen at the clinic of Dr. Saeed here at [facility] next June 01 at 2 PM. Counseled pt/family regarding: lab results, diagnosis, need for follow-up, rad results - Departure Departure Disposition: Home Clinical Impression: Bimalleolar fracture of right ankle, Subluxation of tarsal joint of left foot, initial encounter, Trimalleolar fracture of ankle, closed Condition: Stable Critical Care Time: No Referrals: ALEJANDRO HARRIS [Primary Care Provider] - Additional Instructions: Nonweightbearing. Follow-up at the podiatry clinic here at [facility] with Dr. Saeed June 01, 2020 at 2 PM. Do not eat or drink anything after midnight on May 31, 2020. Hold off on your blood pressure medication tomorrow morning. Prescriptions: Hydrocodone/APAP 5-325 Tab^^^ [[place] 5-325 Tablet^^^] 1 tab PO Q8H PRN PRN #10 tablet MDD 3 PRN Reason: Pain
[2020-05-23] MEDS ORDERED: Sodium Chloride 0.9% 500 ML 500 ML IV ONE ×5 (11:48→13:34)
--- NOTE | 2020-05-23 11:53 | XRAY ---
Indication: Pain following fall. Comparison: None 3 view right ankle demonstrates mild displaced and angulated bimalleolar fractures with laterally subluxed talus and soft tissue swelling. Incidental osteopenia and large posterior/plantar heel spurs.
[2020-05-23 12:12] LABS: BASOPHIL % 0.4 % (0.0-0.4); Basophil (Absolute #) 0.04 (0-0.4); Eosinophil % 0.6 % (0.00-5.0); Eosinophil (Absolute #) 0.06 (0-0.5); Hematocrit 36.5 % (35-47); Hemoglobin 11.1 gm/dl (12.0-16.0); Lymphocyte (Absolute #) 1.21 (1.0-4.6); Lymphocytes % 12.2 % (24.0-44.0); Mean Cell Volume 89.7 fl (78-100); Mean Corpuscular Hemoglobin 27.3 pg (26-32); Mean Corpuscular Hgb Concent. 30.4 g/dl (32-36); Mean Platelet Volume 9.3 fl (7.5-11.0); Monocyte (Absolute #) 0.51 (0.0-1.3); Monocytes % 5.1 % (0.0-12.0); Neutrophil % 81.7 % (36.0-66.0); Platelet Count 285 K/mm3 (150-450); Red Blood Count 4.07 M/mm3 (4.1-5.4); Red Cell Distribution Width 15.1 % (11.5-14.0); White Blood Count 9.9 K/mm3 (4.0-10.5)
[2020-05-23 12:24] LABS: ALBUMIN 3.9 g/dL (3.5-5.0); ANION GAP 8.9 MEQ/L (5-15); BILIRUBIN,TOTAL 0.7 mg/dL (0.2-1.3); Calcium 9.2 mg/dL (8.4-10.2); Creatinine 1 1.06 mg/dL (0.52-1.04); EST GLOMERULAR FILTRATION RATE 53.9 ML/MIN; Potassium 4.5 mmol/L (3.5-5.1); Total Protein 6.4 g/dL (6.3-8.2)
[2020-05-23] MEDS ORDERED: MORPHINE SULFATE 4 MG INJ IV ONE (12:31)
[2020-05-23] MEDS ORDERED: Zofran 4 MG/2 ML VIAL IV ONE (12:31)
[2020-05-23] MEDS ORDERED: MORPHINE SULFATE 4 MG INJ ONE (12:40)
[2020-05-23] MEDS ORDERED: Zofran 4 MG/2 ML VIAL ONE (12:40)
--- NOTE | 2020-05-23 12:51 | XRAY ---
Indication: Status post fall. Multiple contiguous axial images obtained through the head without contrast. Comparison: August 05, 2019. Stable age-appropriate global atrophy, mild periventricular degenerative micro-ischemia bilaterally, and small remote infarcts left basal ganglia, right thalamus, and right mid centrum semiovale. No acute intracranial hemorrhage, abnormal extra-axial fluid collection, or mass effect. Fourth ventricle is midline without hydrocephalus. Bony calvarium intact. Continued mucosal thickening right sphenoid sinus. Remaining visualized paranasal sinuses and mastoid air cells are clear. Impression: 1. Stable atrophy, degenerative micro-ischemia, small bilateral remote infarcts, and right sphenoid sinus disease. 2. No new or acute intracranial abnormalities.
[2020-05-23] MEDS ORDERED: Ativan 2 MG/1 ML VIAL ONE (13:18)
[2020-05-23] MEDS ORDERED: Ativan 2 MG/1 ML VIAL IV ONE (13:34)
--- NOTE | 2020-05-23 14:10 | XRAY ---
Indication: Pain following fall. Fracture on same day ankle radiograph. Multiple contiguous axial images obtained through the right ankle. Two-dimensional sagittal and coronal reformatted images obtained. Comparison: None Osseous structures demineralized consistent with patient's age with large posterior/plantar heel spurs. There is nondisplaced comminuted lateral malleolus fracture with mild valgus angulation and medial malleolus fracture with fracture fragment displaced laterally. Distal most tibia also demonstrates minimally displaced vertical fracture posteriorly not visualized on radiograph. Talus is moderately subluxed laterally. There is a tiny 5-6 mm curvilinear fracture fragment interposed between the tibial plafond and medial corner of the talus presumed from the medial malleolus fracture. Subtalar joint unremarkable. Moderate surrounding soft tissue swelling. Minimal posterior tibial artery calcifications. Remaining visualized noncontrasted soft tissues are unremarkable. Impression: 1. Trimalleolar fractures as detailed with laterally subluxed talus. 2. Incidental osteopenia and large heel spurs.
[2020-05-23] MEDS ORDERED: Sodium Chloride 0.9% 1000 ML 1,000 ML IV SCH (16:15)
[2020-05-23] MEDS ORDERED: Zofran 4 MG/2 ML VIAL IV PRN (17:42)
[2020-05-23] MEDS: MORPHINE SULFATE 2 MG INJ IV PRN (19:44)
[2020-05-23] MEDS ORDERED: Restoril 15 MG PO SCH (22:00)
[2020-05-23] MEDS ORDERED: PLAVIX 75 MG Tablet PO SCH (22:00)
[2020-05-24] MEDS: MORPHINE SULFATE 2 MG INJ IV PRN ×3 (02:51→15:53)
[2020-05-24] MEDS: Sodium Chloride 0.9% 1000 ML 1,000 ML IV SCH (02:54)
[2020-05-24 05:07] LABS: Absolute Neutrophil Ct (ANC) 8.52 (1.4-6.9); BASOPHIL % 0.2 % (0.0-0.4); Basophil (Absolute #) 0.02 (0-0.4); Eosinophil % 0.5 % (0.00-5.0); Eosinophil (Absolute #) 0.05 (0-0.5); Hematocrit 34.8 % (35-47); Hemoglobin 10.6 gm/dl (12.0-16.0); Lymphocyte (Absolute #) 1.12 (1.0-4.6); Lymphocytes % 10.9 % (24.0-44.0); Mean Cell Volume 89.7 fl (78-100); Mean Corpuscular Hemoglobin 27.3 pg (26-32); Mean Corpuscular Hgb Concent. 30.5 g/dl (32-36); Monocytes % 5.8 % (0.0-12.0); Neutrophil % 82.6 % (36.0-66.0); Platelet Count 228 K/mm3 (150-450); Red Blood Count 3.88 M/mm3 (4.1-5.4); White Blood Count 10.3 K/mm3 (4.0-10.5)
[2020-05-24 05:22] LABS: ALBUMIN 3.6 g/dL (3.5-5.0); ANION GAP 9.4 MEQ/L (5-15); BILIRUBIN,TOTAL 0.6 mg/dL (0.2-1.3); Calcium 8.5 mg/dL (8.4-10.2); Creatinine 1 1.05 mg/dL (0.52-1.04); EST GLOMERULAR FILTRATION RATE 54.5 ML/MIN; Total Protein 6.4 g/dL (6.3-8.2)
--- NOTE | 2020-05-24 09:09 | PCM.HP ---
History of Present Illness - Chief Complaint Chief Complaint: Right ankle fracture History of Present Illness: is a 75 year old female patient of Dr Diane who presented to the ER yesterday after a fall in her home. She has had multiple falls in the past and has prior hx of CAD with stent placement nearly [address] Adriana Bryant, she also has a prior history of TIA and is on aspirin and plavix therapy. She reports she was feeling lightheaded and slightly dizzy prior to the fall, she is uncertain about any loss of consciousness. She denies chest pain or shortness of breath on exertion. She normally lives alone and is able to ambulate without the aid of any assistive devices. She denies any recent change in exercise tolerance and is able to walk and do her own shopping etc at her baseline. She has not seen her silk hanger in nearly a year nor had any cardiac testing done recently. She only complains of right ankle pain and was diagnosed with trimallolar ankle fracture with subluxation of the talus in the ER. - Review of Systems Constitutional: No Fever, No Chills Respiratory: No Cough, No Short Of Breath Cardiac: No Chest Pain, No Edema, No Syncope Abdominal/Gastrointestinal: No Abdominal Pain, No Nausea, No Vomiting, No Diarrhea Musculoskeletal: Fall, Injury, Joint Pain Neurological: Dizziness, No Focal Weakness, No Gait Changes, No Headache, No Parasthesia, No Sensory Changes All Other Systems: Reviewed and Negative Medications & Allergies Home Medications: Home Medication List Allopurinol 300 mg [Zyloprim 300 mg] 300 mg PO DAILY 09/21/14 [History Confirmed 05/23/20] Levothyroxine Sodium 50 Mcg [Synthroid 50 Mcg] 25 mcg PO DAILY 09/21/14 [History Confirmed 05/23/20] Buspirone HCl 5 mg [Buspar 5 mg] 10 mg PO DAILY 02/25/15 [History Confirmed 05/23/20] Clopidogrel Bisulfate 75 mg [PLAVIX 75 MG Tablet] 75 mg PO QAM 11/18/16 [History Confirmed 05/24/20] Fluoxetine HCl [Prozac] 40 mg PO DAILY 11/18/16 [History Confirmed 05/23/20] Ascorbic Acid [Vitamin C] 1,000 mg PO BID 05/23/20 [History Confirmed 05/23/20] Aspirin 81 mg PO DAILY 05/23/20 [History Confirmed 05/23/20] Atorvastatin Calcium [Lipitor] 20 mg PO DAILY 05/23/20 [History Confirmed 05/23/20] Bumetanide [Bumex] 2 mg PO DAILY 05/23/20 [History Confirmed 05/24/20] Carvedilol 12.5 mg [Coreg 12.5 mg] 0.5 tab PO BID 05/23/20 [History Confirmed 05/23/20] Cyanocobalamin (Vitamin B-12) [B-12] 1,000 mcg PO DAILY 05/23/20 [History Confirmed 05/23/20] Hydrocodone/APAP 5-325 Tab^^^ [[place] 5-325 Tablet^^^] 1 tab PO Q8H PRN PRN #10 tablet MDD 3 05/23/20 [Rx] Irbesartan 150 mg [Avapro 150 MG] 1 tab PO DAILY 05/23/20 [History Confirmed 05/23/20] Omeprazole 40 mg PO DAILY 05/23/20 [History Confirmed 05/24/20] Potassium Chloride [Klor-Con M20] 20 meq PO DAILY 05/23/20 [History Confirmed 05/24/20] Temazepam 15 mg [Restoril 15 MG] 1 tab PO HS 05/23/20 [History Confirmed 05/23/20] Allergies/Adverse Reactions: Allergies Allergy/AdvReac Type Severity Reaction Status Date / Time levofloxacin [From Levaquin] Allergy Intermediate Skin Verified 05/23/20 11:18 Irritation Penicillins Allergy Mild Hives Verified 05/23/20 11:18 - Past Medical History Past Medical History: Yes Neurological History: Migraines ENT History: No Pertinent History Cardiac History: Coronary Artery Disease, High Cholesterol, Hypertension, Myocardial Infarction ([place]) Respiratory History: No Pertinent History Endocrine Medical History: Hypothyroidism Musculoskelatal History: No Pertinent History, Other GI Medical History: Gallbladder Disease History: Renal Disease, Other Pyscho-Social History: Anxiety, Depression Reproductive Disorders: No Pertinent History Comment: ACUTE KIDNEY FAILURE RESOLVED, GOUT. RECENT HOSPITALIZATION FOR UTI - Female History Hx Last Menstrual Period: POST Are you now?: No - Past Surgical History Past Surgical History: Yes Neuro Surgical History: No Pertinent History Cardiac History: Cardiac Catheterization, Cardiac Stent Respiratory Surgery: No Pertinent History GI Surgical History: Appendectomy, Cholecystectomy Genitourinary Surgical Hx: No Pertinent History Musculskeletal Surgical Hx: No Pertinent History Female Surgical History: Tubal Ligation - Social History Smoking Status: Never smoker Exposure to second hand smoke: No Alcohol: None Drug Use: none Significant Family History: heart disease, hypertension - Physical Exam Vital Signs: Vital Signs - 24 hr Temp Pulse Resp BP Pulse Ox 05/24/20 07:27 98.6 F 93 H 16 132/60 92 L 05/24/20 07:03 91 L 05/24/20 04:00 98.4 F 97 H 20 130/69 95 05/23/20 23:38 98.8 F 101 H 20 106/57 94 L 05/23/20 19:30 92 L 05/23/20 19:20 97.4 F 76 18 143/65 97 05/23/20 18:35 97.5 F 72 16 134/60 95 05/23/20 13:40 68 16 78/40 96 05/23/20 12:42 73 18 95/73 99 05/23/20 11:18 98.2 F 64 18 85/57 97 General Appearance: no apparent distress, obese Neurologic Exam: alert, oriented x 3, cooperative Respiratory Exam: normal breath sounds, lungs clear, No respiratory distress Cardiovascular Exam: regular rate/rhythm, murmur Gastrointestinal/Abdomen Exam: soft, normal bowel sounds, No tenderness, No mass Extremity Exam: normal inspection, normal range of motion, pelvis stable Skin Exam: normal color, warm, dry, No rash Results - Labs Lab/Micro Results: Lab Results-Last 24 Hours 05/23/20 05/23/20 05/23/20 Range/Units 12:00 12:00 12:15 WBC 9.9 (4.0-10.5) K/mm3 RBC 4.07 L (4.1-5.4) M/mm3 Hgb 11.1 L (12.0-16.0) gm/dl Hct 36.5 (35-47) % MCV 89.7 (78-100) fl MCH 27.3 (26-32) pg MCHC 30.4 L (32-36) g/dl RDW 15.1 H (11.5-14.0) % Plt Count 285 (150-450) K/mm3 MPV 9.3 (7.5-11.0) fl Gran % 81.7 H (36.0-66.0) % Eos # (Auto) 0.06 (0-0.5) Absolute Lymphs (auto) 1.21 (1.0-4.6) Absolute Monos (auto) 0.51 (0.0-1.3) Lymphocytes % 12.2 L (24.0-44.0) % Monocytes % 5.1 (0.0-12.0) % Eosinophils % 0.6 (0.00-5.0) % Basophils % 0.4 (0.0-0.4) % Absolute Granulocytes 8.10 H (1.4-6.9) Basophils # 0.04 (0-0.4) Sodium 135 L (137-145) mmol/L Potassium 4.5 (3.5-5.1) mmol/L Chloride 98 (98-107) mmol/L Carbon Dioxide 33 H (22-30) mmol/L Anion Gap 8.9 (5-15) MEQ/L BUN 24 H (7-17) mg/dL Creatinine 1.06 H (0.52-1.04) mg/dL Estimated GFR 53.9 ML/MIN Glucose 135 H (74-106) mg/dL Calcium 9.2 (8.4-10.2) mg/dL Total Bilirubin 0.70 (0.2-1.3) mg/dL AST 19 (14-36) U/L ALT 11 (0-35) U/L Alkaline Phosphatase 131 H (38-126) U/L Troponin I < 0.012 (0.000-0.034) ng/mL Serum Total Protein 6.4 (6.3-8.2) g/dL Albumin 3.9 (3.5-5.0) g/dL 05/24/20 05/24/20 Range/Units 04:41 04:41 WBC 10.3 (4.0-10.5) K/mm3 RBC 3.88 L (4.1-5.4) M/mm3 Hgb 10.6 L (12.0-16.0) gm/dl Hct 34.8 L (35-47) % MCV 89.7 (78-100) fl MCH 27.3 (26-32) pg MCHC 30.5 L (32-36) g/dl RDW 15.0 H (11.5-14.0) % Plt Count 228 (150-450) K/mm3 MPV 9.0 (7.5-11.0) fl Gran % 82.6 H (36.0-66.0) % Eos # (Auto) 0.05 (0-0.5) Absolute Lymphs (auto) 1.12 (1.0-4.6) Absolute Monos (auto) 0.60 (0.0-1.3) Lymphocytes % 10.9 L (24.0-44.0) % Monocytes % 5.8 (0.0-12.0) % Eosinophils % 0.5 (0.00-5.0) % Basophils % 0.2 (0.0-0.4) % Absolute Granulocytes 8.52 H (1.4-6.9) Basophils # 0.02 (0-0.4) Sodium 135 L (137-145) mmol/L Potassium 4.0 (3.5-5.1) mmol/L Chloride 101 (98-107) mmol/L Carbon Dioxide 29 (22-30) mmol/L Anion Gap 9.4 (5-15) MEQ/L BUN 18 H (7-17) mg/dL Creatinine 1.05 H (0.52-1.04) mg/dL Estimated GFR 54.5 ML/MIN Glucose 128 H (74-106) mg/dL Calcium 8.5 (8.4-10.2) mg/dL Total Bilirubin 0.60 (0.2-1.3) mg/dL AST 16 (14-36) U/L ALT 10 (0-35) U/L Alkaline Phosphatase 119 (38-126) U/L Troponin I (0.000-0.034) ng/mL Serum Total Protein 6.4 (6.3-8.2) g/dL Albumin 3.6 (3.5-5.0) g/dL - Radiology Impressions Radiology Exams & Impressions: Radiology Procedures Category Date Time Status ANKLE (3 VIEWS) Stat Exams 05/23/20 11:23 Completed ECHO W/2D AND DOPPLER [US] Routine Exams 05/24/20 Ordered HEAD WITHOUT CONTRAST [CT] Stat Exams 05/23/20 12:14 Completed LOWER EXTREMITY WO CONTRAST [CT] Stat Exams 05/23/20 13:30 Completed Assessment/Plan (1) Trimalleolar fracture of ankle, closed Current Visit: Yes Status: Acute Assessment & Plan: Dr Saeed has consulted and plans intervention in the next day or two when swelling is improved. he states ok to continue antiplatelet therapy at this time. Code(s): S82.853A - DISPLACED TRIMALLEOLAR FRACTURE OF UNSP LOWER LEG, INIT (2) Coronary artery disease Current Visit: Yes Status: Acute Assessment & Plan: 12 lead EKG reviewed with rate 95, sinus rhythm, normal axis. nonspecific st/t wave changes. nothing acute noted. will obtain echo, no recent change in exercise tolerance. patient cleared at this time for general anesthesia and surg ical intervention. Code(s): I25.10 - ATHSCL HEART DISEASE OF [place] CORONARY ARTERY W/O ANG PCTRS (3) Hypotension Current Visit: No Status: Acute Assessment & Plan: patient is currently normotensive, with routine bumetanide use will cut fluids back to 50ml/hr, at this time continue carvedilol 6.25mg bid but hold avapro 150 mg at this time. will hold routine bumex but volume status will need to be closely monitored. Code(s): I95.9 - HYPOTENSION, UNSPECIFIED
[2020-05-24] MEDS ORDERED: NORCO 5/325 MG PO PRN (09:14)
[2020-05-24] MEDS ORDERED: NON-FORMULARY ITEM (Aspirin [Aspirin] 81 MG) PO SCH (10:00)
[2020-05-24] MEDS ORDERED: NON-FORMULARY ITEM (Omeprazole [Omeprazole] 40 MG) PO SCH (10:00)
[2020-05-24] MEDS ORDERED: FLUZONE HIGH-DOSE QUAD 2020-21 IM ONE (10:00)
[2020-05-24] MEDS ORDERED: NON-FORMULARY ITEM (Atorvastatin Calcium [Lipitor] 20 MG) PO SCH (10:00)
[2020-05-24] MEDS: SYNTHROID 25 MCG PO SCH (11:21)
[2020-05-24] MEDS: PLAVIX 75 MG Tablet PO SCH (11:21)
[2020-05-24] MEDS: ZOCOR 20MG PO SCH (11:21)
[2020-05-24] MEDS: ZYLOPRIM 300 MG PO SCH (11:21)
[2020-05-24] MEDS: ECOTRIN 81 MG PO SCH (11:21)
[2020-05-24] MEDS: Coreg 6.25 MG PO SCH ×2 (11:22→21:00)
[2020-05-24] MEDS: Prozac 20 MG PO SCH (11:22)
[2020-05-24] MEDS: Protonix 40MG Tablet PO SCH (11:22)
[2020-05-24] MEDS: BUSPAR 5 MG PO SCH (11:26)
[2020-05-25] MEDS: MORPHINE SULFATE 2 MG INJ IV PRN ×3 (00:42→18:46)
[2020-05-25 05:19] LABS: Absolute Neutrophil Ct (ANC) 6.58 (1.4-6.9); BASOPHIL % 0.2 % (0.0-0.4); Basophil (Absolute #) 0.02 (0-0.4); Eosinophil % 1.5 % (0.00-5.0); Eosinophil (Absolute #) 0.13 (0-0.5); Hematocrit 32.4 % (35-47); Hemoglobin 9.7 gm/dl (12.0-16.0); Lymphocyte (Absolute #) 1.32 (1.0-4.6); Lymphocytes % 15.2 % (24.0-44.0); Mean Cell Volume 90.3 fl (78-100); Mean Corpuscular Hgb Concent. 29.9 g/dl (32-36); Mean Platelet Volume 9.1 fl (7.5-11.0); Monocyte (Absolute #) 0.63 (0.0-1.3); Monocytes % 7.3 % (0.0-12.0); Neutrophil % 75.8 % (36.0-66.0); Platelet Count 200 K/mm3 (150-450); Red Blood Count 3.59 M/mm3 (4.1-5.4); Red Cell Distribution Width 14.9 % (11.5-14.0); White Blood Count 8.7 K/mm3 (4.0-10.5)
[2020-05-25 05:43] LABS: BLOOD UREA NITROGEN 18 mg/dL (7-17); CHLORIDE 104 mmol/L (98-107); Calcium 8.4 mg/dL (8.4-10.2); Carbon Dioxide 28 mmol/L (22-30); Creatinine 1 0.91 mg/dL (0.52-1.04); EST GLOMERULAR FILTRATION RATE > 60.0 ML/MIN; Glucose 119 mg/dL (74-106); Potassium 3.8 mmol/L (3.5-5.1); SODIUM 135 mmol/L (137-145)
--- NOTE | 2020-05-25 08:45 | PCM.NOTE ---
Date and Time: 05/25/20841 Subjective Assessment: Pt currently having 2/10 ankle pain. Tolerating po well. BP have been in the 130s-140 systolic. - Review of Systems Constitutional: No Fever Musculoskeletal: Injury Objective Exam General Appearance: no apparent distress, obese Neurologic Exam: alert, oriented x 3, cooperative Skin Exam: normal color, warm, dry, No rash Eye Exam: eyes nml inspection Ears, Nose, Throat Exam: moist mucous membranes Neck Exam: normal inspection Respiratory Exam: normal breath sounds, lungs clear Cardiovascular Exam: regular rate/rhythm, normal heart sounds, No murmur Gastrointestinal/Abdomen Exam: soft, normal bowel sounds, No tenderness, No distention, No mass, No guarding, No rebound Extremity Exam: other (RLE with splint in place; toes are warm and dry with cap rf < 2 sec.) OBJECTIVE DATA Vital Signs: Vital Signs - 24 hr Temp Pulse Resp BP Pulse Ox 05/25/20 07:45 98.5 F 84 18 138/66 91 L 05/25/20 07:36 92 L 05/25/20 04:10 97.2 F 88 16 124/59 92 L 05/24/20 23:34 98.6 F 85 18 140/65 94 L 05/24/20 20:00 98.5 F 83 20 131/59 93 L 05/24/20 19:22 92 L 05/24/20 16:00 98.2 F 83 18 144/60 93 L 05/24/20 12:00 98.2 F 88 18 134/64 93 L Pain Assessment - Last Documented Pain Intensity 1 Pain Scale Used 0-10 Pain Scale Intake and Output: Intake & Output 05/22/20 05/23/20 05/24/20 05/25/20 11:59 11:59 11:59 11:59 Intake Total 2391 2213 Output Total 300 1950 Balance 2091 263 Weight 95.254 kg 97.9 kg Lab Results: Lab Results-Last 24 Hours 05/25/20 05/25/20 Range/Units 04:52 04:52 WBC 8.7 (4.0-10.5) K/mm3 RBC 3.59 L (4.1-5.4) M/mm3 Hgb 9.7 L (12.0-16.0) gm/dl Hct 32.4 L (35-47) % MCV 90.3 (78-100) fl MCH 27.0 (26-32) pg MCHC 29.9 L (32-36) g/dl RDW 14.9 H (11.5-14.0) % Plt Count 200 (150-450) K/mm3 MPV 9.1 (7.5-11.0) fl Gran % 75.8 H (36.0-66.0) % Eos # (Auto) 0.13 (0-0.5) Absolute Lymphs (auto) 1.32 (1.0-4.6) Absolute Monos (auto) 0.63 (0.0-1.3) Lymphocytes % 15.2 L (24.0-44.0) % Monocytes % 7.3 (0.0-12.0) % Eosinophils % 1.5 (0.00-5.0) % Basophils % 0.2 (0.0-0.4) % Absolute Granulocytes 6.58 (1.4-6.9) Basophils # 0.02 (0-0.4) Sodium 135 L (137-145) mmol/L Potassium 3.8 (3.5-5.1) mmol/L Chloride 104 (98-107) mmol/L Carbon Dioxide 28 (22-30) mmol/L Anion Gap 7.0 (5-15) MEQ/L BUN 18 H (7-17) mg/dL Creatinine 0.91 (0.52-1.04) mg/dL Estimated GFR > 60.0 ML/MIN Glucose 119 H (74-106) mg/dL Calcium 8.4 (8.4-10.2) mg/dL Radiology Exams: Radiology Procedures Category Date Time Status ANKLE (3 VIEWS) Stat Exams 05/23/20 11:23 Completed ECHO W/2D AND DOPPLER [US] Routine Exams 05/24/20 11:20 Taken HEAD WITHOUT CONTRAST [CT] Stat Exams 05/23/20 12:14 Completed LOWER EXTREMITY WO CONTRAST [CT] Stat Exams 05/23/20 13:30 Completed Multi-Disciplinary Progress Notes: Multi-Disciplinary Progress Notes 05/24/20 10:20 Physical Therapy Note by Zunilda Tavarez CHART SCREEN COMPLETE. WILL BEGIN PT AFTER R ANKLE SX WHICH IS SCHEDULED FOR 05/25/20. ZUNILDA TAVAREZ PT Initialized on 05/24/20 10:20 - END OF NOTE Assessment/Plan (1) Trimalleolar fracture of ankle, closed Current Visit: Yes Status: Acute Qualifiers: Encounter type: initial encounter Laterality: right Qualified Code(s): S82.851A - Displaced trimalleolar fracture of right lower leg, initial encounter for closed fracture Assessment & Plan: Pt to have surgery when swelling has improved, per Dr. Seaed, thank you! Code(s): S82.853A - DISPLACED TRIMALLEOLAR FRACTURE OF UNSP LOWER LEG, INIT (2) Coronary artery disease Current Visit: Yes Status: Chronic Qualifiers: Coronary Disease-Associated Artery/Lesion type: [place] artery [place] vs. transplanted heart: [place] heart Associated angina: without angina Qualified Code(s): I25.10 - Atherosclerotic heart disease of [place] coronary artery without angina pectoris Assessment & Plan: Pt still on beta yareli. Code(s): I25.10 - ATHSCL HEART DISEASE OF [place] CORONARY ARTERY W/O ANG PCTRS (3) Fall Current Visit: No Status: Acute Qualifiers: Encounter type: initial encounter Qualified Code(s): W19.XXXA - Unspecified fall, initial encounter Assessment & Plan: She was hypotensive in ER; her ARB has been held and BP are 130s-140 now. Will continue to observe off the Avapro and continuing the beta yareli. Code(s): W19.XXXA - UNSPECIFIED FALL, INITIAL ENCOUNTER (4) Hypotension Current Visit: No Status: Resolved Qualifiers: Hypotension type: hypotension due to drug Qualified Code(s): I95.2 - Hypotension due to drugs Code(s): I95.9 - HYPOTENSION, UNSPECIFIED
[2020-05-25] MEDS: Sodium Chloride 0.9% 1000 ML 1,000 ML IV SCH ×2 (08:57→09:54)
[2020-05-25] MEDS: ECOTRIN 81 MG PO SCH (09:55)
[2020-05-25] MEDS: PLAVIX 75 MG Tablet PO SCH (09:56)
[2020-05-25] MEDS: Prozac 20 MG PO SCH (09:56)
[2020-05-25] MEDS: Protonix 40MG Tablet PO SCH (09:56)
[2020-05-25] MEDS: SYNTHROID 25 MCG PO SCH (09:56)
[2020-05-25] MEDS: ZOCOR 20MG PO SCH (09:56)
[2020-05-25] MEDS: Coreg 6.25 MG PO SCH ×2 (09:56→21:27)
[2020-05-25] MEDS: BUSPAR 5 MG PO SCH (09:56)
[2020-05-25] MEDS: ZYLOPRIM 300 MG PO SCH (09:56)
--- NOTE | 2020-05-25 11:32 | XRAY ---
Indication: senior living placement. Comparison: August 24, 2019. Portable chest continues to demonstrate normal heart and lungs. Bony thorax intact again with mild osteopenia and degenerative changes. No new/acute findings.
--- NOTE | 2020-05-25 12:11 | PCM.CONS ---
Podiatry HPI - Consult Date of Consultation Date: 05/25/20 Reason for Consult: ankle fracture to right Consulting Provider: ANAY LOVELACE DPM - [facility] History of Present Illness: Isabelle is a very pleasant 75-year-old female who has a history of frequent falls and hypertension. She presented to the emergency department on May 23 following a fall where she lost consciousness. Following the fall she states she had a significant amount of pain in her right ankle however she reports no other injuries. She states that she does not remember the loss of consciousness and denies any other significant injury. She was brought to the emergency room and diagnosed with a bimalleolar ankle fracture. She qualifies the pain as an aching and throbbing type pain with some light electric shootings with intermittent frequency. She states that the pain worsens with any type of movement and she is unable to bear any weight on it. Grossly to her it appears abnormal. She currently denies any other constitutional symptoms of infection. She denies any other pedal complaints. Medications & Allergies Home Medications: Home Medication List Allopurinol 300 mg [Zyloprim 300 mg] 300 mg PO DAILY 09/21/14 [History Confirmed 05/23/20] Levothyroxine Sodium 50 Mcg [Synthroid 50 Mcg] 25 mcg PO DAILY 09/21/14 [History Confirmed 05/23/20] Buspirone HCl 5 mg [Buspar 5 mg] 10 mg PO DAILY 02/25/15 [History Confirmed 05/23/20] Clopidogrel Bisulfate 75 mg [PLAVIX 75 MG Tablet] 75 mg PO QAM 11/18/16 [History Confirmed 05/24/20] Fluoxetine HCl [Prozac] 40 mg PO DAILY 11/18/16 [History Confirmed 05/23/20] Ascorbic Acid [Vitamin C] 1,000 mg PO BID 05/23/20 [History Confirmed 05/23/20] Aspirin 81 mg PO DAILY 05/23/20 [History Confirmed 05/23/20] Atorvastatin Calcium [Lipitor] 20 mg PO DAILY 05/23/20 [History Confirmed 05/23/20] Bumetanide [Bumex] 2 mg PO DAILY 05/23/20 [History Confirmed 05/24/20] Carvedilol 12.5 mg [Coreg 12.5 mg] 0.5 tab PO BID 05/23/20 [History Confirmed 05/23/20] Cyanocobalamin (Vitamin B-12) [B-12] 1,000 mcg PO DAILY 05/23/20 [History Confirmed 05/23/20] Hydrocodone/APAP 5-325 Tab^^^ [[place] 5-325 Tablet^^^] 1 tab PO Q8H PRN PRN #10 tablet MDD 3 05/23/20 [Rx] Irbesartan 150 mg [Avapro 150 MG] 1 tab PO DAILY 05/23/20 [History Confirmed 05/23/20] Omeprazole 40 mg PO DAILY 05/23/20 [History Confirmed 05/24/20] Potassium Chloride [Klor-Con M20] 20 meq PO DAILY 05/23/20 [History Confirmed 05/24/20] Temazepam 15 mg [Restoril 15 MG] 1 tab PO HS 05/23/20 [History Confirmed 05/23/20] Allergies/Adverse Reactions: Allergies Allergy/AdvReac Type Severity Reaction Status Date / Time levofloxacin [From Levaquin] Allergy Intermediate Skin Verified 05/23/20 11:18 Irritation Penicillins Allergy Mild Hives Verified 05/23/20 11:18 acetaminophen [From [place]] AdvReac Nausea Verified 05/25/20 10:53 hydrocodone [From [place]] AdvReac Nausea Verified 05/25/20 10:53 - Past Medical History Past Medical History: Yes Neurological History: Migraines ENT History: No Pertinent History Cardiac History: Coronary Artery Disease, High Cholesterol, Hypertension, Myocardial Infarction (HI) Respiratory History: No Pertinent History Endocrine Medical History: Hypothyroidism Musculoskelatal History: No Pertinent History, Other GI Medical History: Gallbladder Disease History: Renal Disease, Other Pyscho-Social History: Anxiety, Depression Reproductive Disorders: No Pertinent History Comment: ACUTE KIDNEY FAILURE RESOLVED, GOUT. RECENT HOSPITALIZATION FOR UTI - Female History Hx Last Menstrual Period: POST Are you now?: No - Past Surgical History Past Surgical History: Yes Neuro Surgical History: No Pertinent History Cardiac History: Cardiac Catheterization, Cardiac Stent Respiratory Surgery: No Pertinent History GI Surgical History: Appendectomy, Cholecystectomy Genitourinary Surgical Hx: No Pertinent History Musculskeletal Surgical Hx: No Pertinent History Female Surgical History: Tubal Ligation - Social History Smoking Status: Never smoker Exposure to second hand smoke: No Alcohol: None Drug Use: none Significant Family History: heart disease, hypertension Physical Exam - Narrative Narrative Physical Exam: Podiatry Physical Exam Vascular: DP and PT pulses are palpable to the bilateral lower extremity. There is significant ecchymosis and edema to the to the medial and lateral aspects of the right ankle. There is a fracture blister noted at the medial aspect of the heel. At the medial malleolus there looks to be a deroofed hemorrhagic fracture blister in this location. Compartments are soft and compressible no significant pain with dorsiflexion of the toes. No evidence of lymphangitis, proximal streaking or cellulitis. There is no evidence of lymphadenopathy on palpation of the popliteal or the inguinal lymph nodes Neurological: Sensation is equal and symmetrical to the bilateral lower extremity for all nerve distributions. Dermatological there appears to be a hemorrhagic fracture blister to the medial aspect of the ankle posterior and distal to the medial malleolus that is still intact at this time. There is also a serous hemorrhagic blister that appears to have been the removed due to compression of the posterior splint and sugar tong at the level of the medial malleolus of the right lower extremity. Significant ecchymosis and erythema to the bimalleolar region of the right. Does not appear that there are any areas of concern for skin necrosis due to pressure. No obvious open sores. Musculoskeletal there is crepitation on range of motion of the right ankle with significant guarding and pain. There is gross deformity with the distal aspect of the leg in a valgus angulation. Unable to obtain remaining exam due to pain. Strength and range of motion within normal limits to the left lower extremity. Results - Labs Lab/Micro Results: Lab Results-Last 24 Hours 05/25/20 05/25/20 Range/Units 04:52 04:52 WBC 8.7 (4.0-10.5) K/mm3 RBC 3.59 L (4.1-5.4) M/mm3 Hgb 9.7 L (12.0-16.0) gm/dl Hct 32.4 L (35-47) % MCV 90.3 (78-100) fl MCH 27.0 (26-32) pg MCHC 29.9 L (32-36) g/dl RDW 14.9 H (11.5-14.0) % Plt Count 200 (150-450) K/mm3 MPV 9.1 (7.5-11.0) fl Gran % 75.8 H (36.0-66.0) % Eos # (Auto) 0.13 (0-0.5) Absolute Lymphs (auto) 1.32 (1.0-4.6) Absolute Monos (auto) 0.63 (0.0-1.3) Lymphocytes % 15.2 L (24.0-44.0) % Monocytes % 7.3 (0.0-12.0) % Eosinophils % 1.5 (0.00-5.0) % Basophils % 0.2 (0.0-0.4) % Absolute Granulocytes 6.58 (1.4-6.9) Basophils # 0.02 (0-0.4) Sodium 135 L (137-145) mmol/L Potassium 3.8 (3.5-5.1) mmol/L Chloride 104 (98-107) mmol/L Carbon Dioxide 28 (22-30) mmol/L Anion Gap 7.0 (5-15) MEQ/L BUN 18 H (7-17) mg/dL Creatinine 0.91 (0.52-1.04) mg/dL Estimated GFR > 60.0 ML/MIN Glucose 119 H (74-106) mg/dL Calcium 8.4 (8.4-10.2) mg/dL Microbiology 05/24/20 09:37 Urine Culture - Preliminary Urine, Indwelling Catheter NO GROWTH TO DATE - Radiology Impressions Radiology Exams & Impressions: Radiology Procedures Category Date Time Status ANKLE (3 VIEWS) Stat Exams 05/23/20 11:23 Completed CHEST 1 VIEW (PORTABLE) Urgent Exams 05/25/20 10:34 Completed ECHO W/2D AND DOPPLER [US] Routine Exams 05/24/20 11:20 Taken HEAD WITHOUT CONTRAST [CT] Stat Exams 05/23/20 12:14 Completed LOWER EXTREMITY WO CONTRAST [CT] Stat Exams 05/23/20 13:30 Completed Assessment/Plan (1) Trimalleolar fracture of ankle, closed Current Visit: Yes Status: Acute Qualifiers: Encounter type: initial encounter Laterality: right Qualified Code(s): S82.851A - Displaced trimalleolar fracture of right lower leg, initial encounter for closed fracture Assessment & Plan: Initial patient examination and evaluation. After reviewing the radiology and CT of the right ankle determined that this is indeed a closed trimalleolar fracture of the right lower extremity which meant itself to surgical fixation. Patient is currently being managed by medical team for hypotensive episodes and frequent falls. At this time I feel it is inadvisable to move forward with surgical intervention until the soft tissue swelling and fracture blisters have subsided to some degree. My concern is over wound dehiscence and potential infection with subsequent need for hardware removal prior to bony bridging. Because of this I feel it is advisable to hold for surgical management until at the earliest next week to avoid any wound complications. Patient is in agreement with this course of action. We will prepare her for surgical intervention of open reduction internal fixation of the right ankle. Patient is to be n.p.o. prior to the surgical intervention from the midnight the day of the procedure. Patient understands that following this procedure she will likely have to stay off the ankle for at minimum 6 to 8 weeks and then be protected weightbearing for some time as well. I highly recommend that this patient is placed into a rehab facility for monitoring of her hypotensive episodes and potential for falls and subsequent injury following surgical intervention. Thank you for the consultation Code(s): S82.853A - DISPLACED TRIMALLEOLAR FRACTURE OF UNSP LOWER LEG, INIT
[2020-05-25] MEDS: PERCOCET TABLET 5/325MG PO PRN ×2 (15:22→21:27)
[2020-05-26] MEDS: PERCOCET TABLET 5/325MG PO PRN ×3 (04:13→13:44)
[2020-05-26] MEDS: Sodium Chloride 0.9% 1000 ML 1,000 ML IV SCH (07:09)
[2020-05-26] MEDS: MORPHINE SULFATE 2 MG INJ IV PRN (07:47)
--- NOTE | 2020-05-26 09:06 | PCM.DS ---
Discharge Summary Date of Admission: 05/23/20 17:15 Admitting Physician: ALEJANDRO HARRIS Primary Care Provider: ALEJANDRO HARRIS Allergies Allergies levofloxacin [From Levaquin] Allergy (Intermediate, Verified 05/23/20 11:18) Skin Irritation STREAKS RUNNING UP VEIN Penicillins Allergy (Mild, Verified 05/23/20 11:18) Hives acetaminophen [From [place]] Adverse Reaction (Verified 05/25/20 10:53) Nausea hydrocodone [From [place]] Adverse Reaction (Verified 05/25/20 10:53) Nausea Hospital Summary - Hospital Course Hospital Course: Pt is a 75 yo pt of mine from [facility] with hypertension and CAD who was admitted through ER with hypotension, a fall, and trimalleolar fracture of the R ankle. Her ARB was held and her BP have improved from 60s systolic to generally 130s- 140s systolic (she did have 88 systolic this morning while she was sleeping). Dr. Saeed saw her for her ankle fracture, thank you, and due to swelling, etc he does not plan to do surgery until next week, likely, and then the pt will require over a month of non-weightbearing rehab. Pt lives alone, so she is to be sent to [facility] for rehab. Rx written for percocet 1 po q6h prn, #42. Pain currently minimal in the R ankle, but with dressing changes goes "through the roof." - Vitals & Intake/Output Vital Signs: Vital Signs Temperature 98.4 F 05/26/20 06:55 Pulse Rate 75 05/26/20 06:55 Respiratory Rate 14 05/26/20 06:55 Blood Pressure 139/60 05/26/20 07:47 O2 Sat by Pulse Oximetry 93 L 05/26/20 07:37 Intake & Output: Intake & Output 05/23/20 05/24/20 05/25/20 05/26/20 11:59 11:59 11:59 11:59 Intake Total 2391 2213 740 Output Total 300 1950 1500 Balance 8489 263 760 Weight 95.254 kg 97.9 kg 99.5 kg 96.7 kg - Lab Result Diagrams: 05/25/20 04:52 05/25/20 04:52 Micro Results-Entire Visit: Microbiology 05/24/20 09:37 Urine Culture - Final Urine, Indwelling Catheter <10K NORMAL SKIN JACQUELINE PROBABLE SKIN CONTAMINANT - Radiology Exams Ordered Rad Exams-Entire Visit: Radiology Procedures Category Date Time Status CHEST 1 VIEW (PORTABLE) Urgent Exams 05/25/20 10:34 Completed ECHO W/2D AND DOPPLER [US] Routine Exams 05/24/20 11:20 Taken - Procedures and Test Procedures and Tests throughout Hospitalization: Therapy Orders & Screens 05/23/20 17:42 PT Eval & Treat (MD Order) ONCE Reason for Eval:: Nonweightbearing right ankle. Transferring. Plan for postoperative rehab Diagnosis: Right ankle fracture EKG REPEAT IN AM Comment: 05/23/20 19:15 OT Screen per Nursing Assess ONCE Comment: Protocol Order Physician Instructions: Greater than 3 points order OT Admission Screening Reason For Exam: Triggered on Admission Diagnosis: Right ankle fracture Open Wound/Cellutlitis/Pressure Ulcers: No Acute Fx/ORIF/Change in wt bearing status: Yes Severe MUSCULOSKELETAL pain: Yes ADL Dysfunction: Yes Acute CVA w/Hemiparesis/Hemiplegia: No Decreased Functional Mobility/Strength: Yes: ankle Fx Sprain/Strain: Yes Acute Post-op Mobility Dysfunction: No Total Points: 17 PT Screen per Nursing Assess ONCE Comment: Protocol Order Physician Instructions: Greater than 3 points order PT Admission Screenin Reason For Exam: Triggered on Admission Diagnosis: Right ankle fracture Open Wound/Cellutlitis/Pressure Ulcers: No Acute Fx/ORIF/Change in wt bearing status: Yes Severe MUSCULOSKELETAL pain: Yes ADL Dysfunction: Yes Acute CVA w/Hemiparesis/Hemiplegia: No Decreased Functional Mobility/Strength: Yes: ankle Fx Sprain/Strain: Yes Acute Post-op Mobility Dysfunction: No Total Points: 17 Discharge Exam General Appearance: no apparent distress, alert, obese Neurologic Exam: oriented x 3, cooperative Eye Exam: eyes nml inspection Ears, Nose, Throat Exam: moist mucous membranes Respiratory Exam: normal breath sounds, lungs clear, No crackles/rales, No rhonchi, No wheezing Cardiovascular Exam: regular rate/rhythm, normal heart sounds, No murmur Gastrointestinal/Abdomen Exam: soft, normal bowel sounds, No tenderness, No distention, No mass, No guarding, No rebound Extremity Exam: No pedal edema, No swelling Skin Exam: normal color, warm, dry, other (RLE wrapped; toes are warm), No rash Final Diagnosis/Problem List - Final Discharge Diagnosis/Problem (1) Trimalleolar fracture of ankle, closed Current Visit: Yes Status: Acute Assessment & Plan: Per Dr. Saeed, thank you. To [facility] for rehab before and after surgery. Code(s): S82.853A - DISPLACED TRIMALLEOLAR FRACTURE OF UNSP LOWER LEG, INIT (2) Coronary artery disease Current Visit: Yes Status: Chronic Code(s): I25.10 - ATHSCL HEART DISEASE OF [place] CORONARY ARTERY W/O ANG PCTRS (3) Fall Current Visit: No Status: Acute Code(s): W19.XXXA - UNSPECIFIED FALL, INITIAL ENCOUNTER (4) Hypotension Current Visit: No Status: Resolved Code(s): I95.9 - HYPOTENSION, UNSPECIFIED - Discharge Disposition: DC TO [facility] Condition: Stable Prescriptions: New Hydrocodone/APAP 5-325 Tab^^^ [[place] 5-325 Tablet^^^] 1 tab PO Q8H PRN PRN #10 tablet MDD 3 PRN Reason: Pain Continue Allopurinol 300 mg [Zyloprim 300 mg] 300 mg PO DAILY Levothyroxine Sodium 50 Mcg [Synthroid 50 Mcg] 25 mcg PO DAILY Buspirone HCl 5 mg [Buspar 5 mg] 10 mg PO DAILY Fluoxetine HCl [Prozac] 40 mg PO DAILY Clopidogrel Bisulfate 75 mg [PLAVIX 75 MG Tablet] 75 mg PO QAM Temazepam 15 mg [Restoril 15 MG] 1 tab PO HS Potassium Chloride [Klor-Con M20] 20 meq PO DAILY Carvedilol 12.5 mg [Coreg 12.5 mg] 0.5 tab PO BID Omeprazole 40 mg PO DAILY Bumetanide [Bumex] 2 mg PO DAILY Aspirin 81 mg PO DAILY Atorvastatin Calcium [Lipitor] 20 mg PO DAILY Ascorbic Acid [Vitamin C] 1,000 mg PO BID Cyanocobalamin (Vitamin B-12) [B-12] 1,000 mcg PO DAILY Discontinued Irbesartan 150 mg [Avapro 150 MG] 1 tab PO DAILY Additional Instructions: PRISON ORDERS: -REGULAR DIET -ROUTINE [facility] -SEE ATTACHED MEDICATION LIST FOR MEDICATION ORDERS -PT/OT EVAL AND TREAT -PATIENT TO BE NON WEIGHT BEARING ON RIGHT ANKLE -LEAVE POSTERIOR SPLINT IN PLACE AT ALL TIMES -FOLLOW UP WITH DR. STANLEY AT [facility] ON FRIDAY WITH POSSIBLE SURGERY ON FRIDAY. DO NOT give percocet with temazepam - separate by at least 4 hours. Watch for hypersomnolence or respiratory depression. Follow up with: ANAY LOVELACE DPM [ACTIVE STAFF] - 06/01/20 9:30 am
[2020-05-26] MEDS: Protonix 40MG Tablet PO SCH (09:08)
[2020-05-26] MEDS: Prozac 20 MG PO SCH (09:08)
[2020-05-26] MEDS: ZYLOPRIM 300 MG PO SCH (09:08)
[2020-05-26] MEDS: BUSPAR 5 MG PO SCH (09:08)
[2020-05-26] MEDS: SYNTHROID 25 MCG PO SCH (09:09)
[2020-05-26] MEDS: PLAVIX 75 MG Tablet PO SCH (09:09)
[2020-05-26] MEDS: ECOTRIN 81 MG PO SCH (09:09)
[2020-05-26] MEDS: Coreg 6.25 MG PO SCH (09:09)
[2020-05-26] MEDS: ZOCOR 20MG PO SCH (09:15)
[2020-05-26 12:05] VITALS: BP 96/52; PULSE 67; O2SAT 94
== END 2020-05-26 14:50 ==
LOC: ED 11:14 → MED SURG 17:15
PROVIDERS: ADMIT Family Medicine; ATTEND Family Medicine
DX: S82.851A Displaced trimalleolar fracture of right lower leg, initial encounter for closed fracture (principal); W19.XXXA Unspecified fall, initial encounter; Z79.01 Long term (current) use of anticoagulants; Z79.899 Other long term (current) drug therapy; I10 Essential (primary) hypertension; E78.00 Pure hypercholesterolemia, unspecified; I25.10 Atherosclerotic heart disease of native coronary artery without angina pectoris; E03.9 Hypothyroidism, unspecified; R42 Dizziness and giddiness; I95.9 Hypotension, unspecified
CPT/HCPCS: 36000; 36415; 70450; 71045; 73610; 73700; 80048; 80053; 84484; 85025; 87086; 93005; 93268; 93306; 94760; 96374; 96375; 97161; 97530; 99285; G0008; G0378; 90662; J2060; J2270; J2405; A9270-GY

== ENCOUNTER 2020-05-30 10:57 | Day surgery (SDC) | payer MEDICARE ==
[2020-05-30] MEDS ORDERED: SUBLIMAZE 250 MCG/5 ML ONE (11:17)
[2020-05-30] MEDS ORDERED: Versed 2 MG/2 ML Injection ONE (11:17)
[2020-05-30] MEDS ORDERED: Zemuron 100 MG/10 ML ONE (11:17)
[2020-05-30] MEDS ORDERED: Quelicin Fliptop 200 MG/10 ML ONE (11:17)
[2020-05-30] MEDS ORDERED: Amidate 20 MG/10 ML IV ONE (11:17)
[2020-05-30] MEDS ORDERED: SOD CITRATE-CITRIC ACID SOLN PO ONE ×2 (11:19→12:01)
[2020-05-30] MEDS ORDERED: Lactated Ringers 1,000 ML IV SCH (11:30)
[2020-05-30] MEDS ORDERED: BRIDION 200MG/2ML IV ONE (12:36)
[2020-05-30 13:49] VITALS: O2SAT 92
[2020-05-30 14:07] VITALS: BP 144/82; PULSE 85
--- NOTE | 2020-06-01 10:30 | OP ---
SURGERY DATE: 05/30/2020 1206 PREOPERATIVE DIAGNOSIS: Malreduction of trimalleolar fracture with necrosis of skin. POSTOPERATIVE DIAGNOSIS: Malreduction of trimalleolar fracture with necrosis of skin. PROCEDURE: Closed reduction of trimalleolar ankle fracture under fluoroscopic imaging with manipulation. SURGEON: Christophe Williamson DPM. BILLING ADMINISTRATOR: None. ANESTHESIA: General. HEMOSTASIS: None. ESTIMATED BLOOD LOSS: None. MATERIALS: None. INJECTABLES: None. DESCRIPTION OF PROCEDURE AND FINDINGS: After sufficient preoperative assessment by the anesthesia team, the patient was brought into the OR and placed on the OR table in the supine position. At this time the fluoroscopic imaging was brought in and radiographic assessment was obtained of the lower extremity. At this time an attempt at reduction was made with an surgical services assistant holding the knee in flexion while longitudinal traction was placed on the right ankle in order to realign the fibula as well as the medial malleolus underneath the ankle mortise. This occurred and the foot was held in this position while splintage was applied consisting of 4x4's, [place], 4 inch and 6 inch VIRY as well as a very well-padded posterior splint. The patient was reversed from the anesthesia and tolerated the procedure well without complication. She was returned to the postoperative anesthesia care unit with vital signs stable and vascular status intact. The patient at this time is going to be delayed as far as definitive surgical fixation due to soft tissue quality and due to malreduction. Postoperative orders as follows: 1) Nonweight bearing to the operative extremity. 2) Weight bearing to the nonoperative extremity with assistance and for transfers only. 3) Postoperative pain control [place] 5/325 mg. 4) Antibiotic prophylaxis: None. 5) Deep venous thrombosis prophylaxis 325 mg aspirin daily until weight bearing. 6) Follow up on Friday of next week in order to reassess for definitive fixation and discharge the patient to home.
== END 2020-05-30 14:20 ==
LOC: SDC 10:57
PROVIDERS: ATTEND Podiatrist Foot & Ankle Surgery
DX: S82.851A Displaced trimalleolar fracture of right lower leg, initial encounter for closed fracture (principal); I96 Gangrene, not elsewhere classified; I10 Essential (primary) hypertension; Z86.79 Personal history of other diseases of the circulatory system; M19.90 Unspecified osteoarthritis, unspecified site
CPT/HCPCS: 99100; 99140; J0330; J2250; J3010

== ENCOUNTER 2020-06-08 11:08 | Inpatient (IN) | payer MEDICARE ==
[2020-06-16] MEDS ORDERED: BUPIVACAINE 0.5% VIAL IJ ONE (07:44)
[2020-06-16] MEDS ORDERED: Lactated Ringers 1,000 ML IV ONE (07:45)
[2020-06-16] MEDS ORDERED: XYLOCAINE 1% HCL 20 ML MDV ONE (07:45)
[2020-06-16] MEDS: Lactated Ringers 1,000 ML IV SCH ×2 (10:38→18:05)
[2020-06-16] MEDS ORDERED: CLINDAMYCIN-D5W 900 MG/50 ML*** 900 MG/50 ML BAG IV SCH (11:00)
[2020-06-16] MEDS ORDERED: DIPRIVAN 200 MG/20 ML IV ONE (12:20)
[2020-06-16] MEDS ORDERED: SUBLIMAZE 100 MCG/2 ML ONE ×2 (12:20→13:21)
[2020-06-16] MEDS ORDERED: Zofran 4 MG/2 ML VIAL ONE (12:20)
[2020-06-16] MEDS ORDERED: Xylocaine-Mpf 2% 5 Ml Vial ONE (12:20)
[2020-06-16] MEDS ORDERED: Decadron 4 MG INJ ONE ×2 (12:20→15:40)
[2020-06-16] MEDS ORDERED: TORAdol 30 mg Injection ONE (12:20)
[2020-06-16] MEDS ORDERED: Ephedrine Sulfate 50 MG/ML ONE (13:18)
[2020-06-16] MEDS ORDERED: APRESOLINE 20 MG/ML INJ ONE (14:12)
[2020-06-16] MEDS ORDERED: DILAUDID 2 MG INJECTION ONE (14:26)
[2020-06-16] MEDS ORDERED: XYLOCAINE 2%/Epi 1:200000 20ML VIAL MPF ONE (15:40)
[2020-06-16] MEDS ORDERED: Naropin 0.5% 30 ML VIAL ONE (15:40)
[2020-06-16] MEDS ORDERED: TYLENOL 325 MG PO PRN (17:15)
[2020-06-16] MEDS ORDERED: NON-FORMULARY ITEM (Hydrocodone/Apap 5-325 Tab^^^ 1 TAB) PO PRN (17:15)
[2020-06-16] MEDS ORDERED: DOXYCYCLINE HYCLATE 100 MG PO SCH (17:15)
[2020-06-16] MEDS ORDERED: NORCO 5/325 MG PO PRN (17:23)
[2020-06-16] MEDS: Vitamin B-12 500 MCG PO SCH (17:41)
[2020-06-16] MEDS: BUSPAR 5 MG PO SCH (17:41)
[2020-06-16] MEDS: Klor Con 10 MEQ PO SCH (17:41)
[2020-06-16] MEDS: ZOCOR 20MG PO SCH (17:41)
[2020-06-16] MEDS: Prozac 20 MG PO SCH (17:41)
[2020-06-16] MEDS: BUMEX 1 MG PO SCH (17:41)
[2020-06-16] MEDS: SYNTHROID 25 MCG PO SCH (17:41)
[2020-06-16] MEDS: ZYLOPRIM 300 MG PO SCH (17:41)
[2020-06-16] MEDS: Ecotrin 325 MG PO SCH (17:41)
[2020-06-16] MEDS: PLAVIX 75 MG Tablet PO SCH (17:42)
[2020-06-16] MEDS: Protonix 40MG Tablet PO SCH (17:42)
[2020-06-16] MEDS: KEFLEX 500 MG PO SCH (17:42)
[2020-06-16] MEDS: ULTRAM 50 MG PO SCH (17:42)
[2020-06-16] MEDS: Coreg 6.25 MG PO SCH (21:09)
[2020-06-16] MEDS: Restoril 15 MG PO SCH (21:09)
[2020-06-16] MEDS: Vibramycin 100 MG PO SCH (21:09)
[2020-06-16] MEDS: Vitamin C 500 MG PO SCH (21:09)
[2020-06-16] MEDS ORDERED: NON-FORMULARY ITEM (Ascorbic Acid [Vitamin C] 1,000 MG) PO SCH (22:00)
--- NOTE | 2020-06-16 22:04 | XRAY ---
8 minutes 3 seconds of fluoroscopy was used in surgery for a right ankle ORIF.
--- NOTE | 2020-06-16 22:04 | XRAY ---
Indication: right ankle ORIF. Intraoperative fluoroscopy was provided for 8 minutes 3 seconds. 4 digital spot images submitted for interpretation demonstrates lateral fixation plate/8 screws fixating lateral malleolus fracture and single screw fixating medial malleolus fracture both in good apposition/alignment. Incidental multiple lateral ankle cutaneous price. Correlate with intraoperative findings/report.
[2020-06-17] MEDS: ULTRAM 50 MG PO SCH ×6 (00:18→23:53)
[2020-06-17] MEDS: KEFLEX 500 MG PO SCH ×5 (00:18→23:53)
[2020-06-17 06:19] LABS: Hematocrit 33.2 % (35-47); Hemoglobin 10.3 gm/dl (12.0-16.0); Mean Cell Volume 89.5 fl (78-100); Mean Corpuscular Hemoglobin 27.8 pg (26-32); Mean Platelet Volume 9.4 fl (7.5-11.0); Platelet Count 231 K/mm3 (150-450); Red Blood Count 3.71 M/mm3 (4.1-5.4); Red Cell Distribution Width 15.7 % (11.5-14.0); White Blood Count 10.8 K/mm3 (4.0-10.5)
[2020-06-17 06:28] LABS: ANION GAP 9.4 MEQ/L (5-15); BLOOD UREA NITROGEN 20 mg/dL (7-17); CHLORIDE 100 mmol/L (98-107); Calcium 8.8 mg/dL (8.4-10.2); Carbon Dioxide 29 mmol/L (22-30); Creatinine 1 0.88 mg/dL (0.52-1.04); EST GLOMERULAR FILTRATION RATE > 60.0 ML/MIN; Glucose 142 mg/dL (74-106); Potassium 4.2 mmol/L (3.5-5.1); SODIUM 134 mmol/L (137-145)
[2020-06-17] MEDS: Ecotrin 325 MG PO SCH (09:15)
[2020-06-17] MEDS: Prozac 20 MG PO SCH (09:15)
[2020-06-17] MEDS: PLAVIX 75 MG Tablet PO SCH (09:15)
[2020-06-17] MEDS: SYNTHROID 25 MCG PO SCH (09:15)
[2020-06-17] MEDS: Vitamin B-12 500 MCG PO SCH (09:15)
[2020-06-17] MEDS: Protonix 40MG Tablet PO SCH (09:15)
[2020-06-17] MEDS: ZYLOPRIM 300 MG PO SCH (09:15)
[2020-06-17] MEDS: BUMEX 1 MG PO SCH (09:15)
[2020-06-17] MEDS: Vibramycin 100 MG PO SCH ×2 (09:15→21:41)
[2020-06-17] MEDS: Klor Con 10 MEQ PO SCH (09:15)
[2020-06-17] MEDS: Coreg 6.25 MG PO SCH ×2 (09:15→21:41)
[2020-06-17] MEDS: ZOCOR 20MG PO SCH (09:16)
[2020-06-17] MEDS: Vitamin C 500 MG PO SCH ×2 (09:16→21:42)
[2020-06-17] MEDS: BUSPAR 5 MG PO SCH (09:16)
[2020-06-17] MEDS ORDERED: NON-FORMULARY ITEM (Atorvastatin Calcium [Lipitor] 20 MG) PO SCH (10:00)
[2020-06-17] MEDS ORDERED: NON-FORMULARY ITEM (Cyanocobalamin (Vitamin B-12) [B-12] 1,000 MCG) PO SCH (10:00)
[2020-06-17] MEDS ORDERED: NON-FORMULARY ITEM (Potassium Chloride [Klor-Con M20] 20 MEQ) PO SCH (10:00)
[2020-06-17] MEDS ORDERED: NON-FORMULARY ITEM (Omeprazole [Omeprazole] 40 MG) PO SCH (10:00)
[2020-06-17] MEDS ORDERED: NON-FORMULARY ITEM (Bumetanide [Bumex] 2 MG) PO SCH (10:00)
[2020-06-17] MEDS: Lactated Ringers 1,000 ML IV SCH (14:47)
[2020-06-17] MEDS: OXYCODONE-ACETAMINOPHEN 10-325 PO PRN ×2 (15:35→21:41)
--- NOTE | 2020-06-17 17:41 | PCM.HP ---
History of Present Illness - Chief Complaint Chief Complaint: Right ankle pain History of Present Illness: is a 75 year old female. Medications & Allergies Home Medications: Home Medication List Allopurinol 300 mg [Zyloprim 300 mg] 300 mg PO DAILY 09/21/14 [History Confirmed 06/16/20] Levothyroxine Sodium 50 Mcg [Synthroid 50 Mcg] 25 mcg PO DAILY 09/21/14 [History Confirmed 06/16/20] Buspirone HCl 5 mg [Buspar 5 mg] 10 mg PO DAILY 02/25/15 [History Confirmed 06/16/20] Clopidogrel Bisulfate 75 mg [PLAVIX 75 MG Tablet] 75 mg PO QAM 11/18/16 [History Confirmed 06/16/20] Fluoxetine HCl [Prozac] 40 mg PO DAILY 11/18/16 [History Confirmed 06/16/20] Ascorbic Acid [Vitamin C] 1,000 mg PO BID 05/23/20 [History Confirmed 06/16/20] Atorvastatin Calcium [Lipitor] 20 mg PO DAILY 05/23/20 [History Confirmed 06/16/20] Bumetanide [Bumex] 2 mg PO DAILY 05/23/20 [History Confirmed 06/16/20] Carvedilol 12.5 mg [Coreg 12.5 mg] 0.5 tab PO BID 05/23/20 [History Confirmed 06/16/20] Cyanocobalamin (Vitamin B-12) [B-12] 1,000 mcg PO DAILY 05/23/20 [History Confirmed 06/16/20] Omeprazole 40 mg PO DAILY 05/23/20 [History Confirmed 06/16/20] Potassium Chloride [Klor-Con M20] 20 meq PO DAILY 05/23/20 [History Confirmed 1 ] Temazepam 15 mg [Restoril 15 MG] 1 tab PO HS 05/23/20 [History Confirmed 06/16/20] Acetaminophen 325 mg [Tylenol 325 mg] 325 mg PO Q4HPRN PRN #60 tablet 05/30/20 [Rx Confirmed 06/01/20] Aspirin EC 325 mg [Ecotrin 325 MG] 325 mg PO DAILY 05/30/20 [History Confirmed 06/16/20] Doxycycline Hyclate 100 mg PO Q12H #20 cap 05/30/20 [Rx Confirmed 06/16/20] Hydrocodone/APAP 5-325 Tab^^^ [[place] 5-325 Tablet^^^] 1 tab PO Q6HPRN PRN #30 tablet MDD 6 05/30/20 [Rx Confirmed 06/16/20] Oxycodone HCl/Acetaminophen [Percocet 10-325 mg Tablet] 1 each PO Q4HPRN PRN 05/30/20 [History Confirmed 06/16/20] Allergies/Adverse Reactions: Allergies Allergy/AdvReac Type Severity Reaction Status Date / Time levofloxacin [From Levaquin] Allergy Intermediate Skin Verified 06/01/20 14:18 Irritation Penicillins Allergy Mild Hives Verified 06/01/20 14:18 acetaminophen [From [place]] AdvReac Nausea Verified 06/01/20 14:18 hydrocodone [From [place]] AdvReac Nausea Verified 06/01/20 14:18 - Past Medical History Past Medical History: Yes Neurological History: Migraines ENT History: No Pertinent History Cardiac History: Coronary Artery Disease, High Cholesterol, Hypertension, Myocardial Infarction ([place]) Respiratory History: No Pertinent History Endocrine Medical History: Hypothyroidism Musculoskelatal History: No Pertinent History, Other GI Medical History: Gallbladder Disease History: Renal Disease, Other Pyscho-Social History: Anxiety, Depression Reproductive Disorders: No Pertinent History Comment: ACUTE KIDNEY FAILURE RESOLVED, GOUT - Female History Are you now?: No - Past Surgical History Past Surgical History: Yes Neuro Surgical History: No Pertinent History Cardiac History: Cardiac Catheterization, Cardiac Stent Respiratory Surgery: No Pertinent History GI Surgical History: Appendectomy, Cholecystectomy Genitourinary Surgical Hx: No Pertinent History Musculskeletal Surgical Hx: Other Female Surgical History: Tubal Ligation Other Surgical History: closed reduction of left ankle. - Social History Smoking Status: Never smoker Exposure to second hand smoke: No Alcohol: None Drug Use: none Significant Family History: heart disease, hypertension - Physical Exam Vital Signs: Vital Signs - 24 hr Temp Pulse Resp BP Pulse Ox 06/17/20 16:00 97.7 F 89 18 120/56 96 06/17/20 12:00 97.0 F 95 H 20 119/58 94 L 06/17/20 07:34 98.0 F 80 16 120/58 96 06/17/20 07:06 98 06/17/20 04:19 98.3 F 80 20 138/58 94 L 06/16/20 23:46 97.8 F 90 20 121/58 96 06/16/20 20:40 97.7 F 81 20 126/60 98 06/16/20 19:40 97.2 F 86 16 128/59 97 06/16/20 19:14 97 06/16/20 18:40 97.5 F 87 20 98 06/16/20 18:10 97.7 F 88 16 125/60 92 L Wound Assessment: Skin/Wound Assessment Wound/Incision Assessment Start: 06/16/20 17:41 Text: Status: Active Freq: Q6H Protocol: Document 06/17/20 14:00 RDUHNE (Rec: 06/17/20 15:18 [email or web address] [id number]) Wound/Incision Assessment Right Lower Extremity Wound Assessment Shift Assessment Wound Type Incision Wound Stage Non Pressure Wound Dressing Status Dry & Intact Comment cast per Dr Saeed Results - Labs Lab/Micro Results: Lab Results-Last 24 Hours 06/16/20 06/16/20 06/17/20 Range/Units 19:05 19:05 06:00 WBC 10.8 H (4.0-10.5) K/mm3 RBC 3.71 L (4.1-5.4) M/mm3 Hgb 10.3 L (12.0-16.0) gm/dl Hct 33.2 L (35-47) % MCV 89.5 (78-100) fl MCH 27.8 (26-32) pg MCHC 31.0 L (32-36) g/dl RDW 15.7 H (11.5-14.0) % Plt Count 231 (150-450) K/mm3 MPV 9.4 (7.5-11.0) fl Sodium (137-145) mmol/L Potassium (3.5-5.1) mmol/L Chloride (98-107) mmol/L Carbon Dioxide (22-30) mmol/L Anion Gap (5-15) MEQ/L BUN (7-17) mg/dL Creatinine (0.52-1.04) mg/dL Estimated GFR ML/MIN Glucose (74-106) mg/dL Hemoglobin A1c 5.43 (4.5-6.0) % Calcium (8.4-10.2) mg/dL Prealbumin 18.53 (17.6-36.0) mg/dL 06/17/20 Range/Units 06:00 WBC (4.0-10.5) K/mm3 RBC (4.1-5.4) M/mm3 Hgb (12.0-16.0) gm/dl Hct (35-47) % MCV (78-100) fl MCH (26-32) pg MCHC (32-36) g/dl RDW (11.5-14.0) % Plt Count (150-450) K/mm3 MPV (7.5-11.0) fl Sodium 134 L (137-145) mmol/L Potassium 4.2 (3.5-5.1) mmol/L Chloride 100 (98-107) mmol/L Carbon Dioxide 29 (22-30) mmol/L Anion Gap 9.4 (5-15) MEQ/L BUN 20 H (7-17) mg/dL Creatinine 0.88 (0.52-1.04) mg/dL Estimated GFR > 60.0 ML/MIN Glucose 142 H (74-106) mg/dL Hemoglobin A1c (4.5-6.0) % Calcium 8.8 (8.4-10.2) mg/dL Prealbumin (17.6-36.0) mg/dL - Radiology Impressions Radiology Exams & Impressions: Radiology Procedures Category Date Time Status ANKLE (2V) Routine Exams 06/16/20 08:29 Completed FLUOROSCOPY UP TO 1 HR Routine Exams 06/16/20 08:29 Completed - Other Procedures and Tests Respiratory Therapy 06/16/20 23:33 Oxygen NASAL CANNULA 2 lpm
[2020-06-17] MEDS: Restoril 15 MG PO SCH (21:41)
[2020-06-18] MEDS: ULTRAM 50 MG PO SCH ×4 (05:26→23:39)
[2020-06-18] MEDS: KEFLEX 500 MG PO SCH ×4 (05:26→23:39)
--- NOTE | 2020-06-18 07:00 | PCM.CONS ---
Podiatry HPI - Consult Date of Consultation Date: 06/16/20 Reason for Consult: Trimalleolar fracture open reduction internal fixation. Postoperative pain Consulting Provider: ANAY LOVELACE DPM - [facility] History of Present Illness: Is a very pleasant 75-year-old female who suffered a trimalleolar ankle fracture when she lost consciousness due to a bout of hypotension falling in the process. She awoke to in extreme pain to the right lower extremity which was subsequently diagnosed as a trimalleolar fracture by our emergency department here in [place]. Patient was reduced and placed in a posterior splint as well as sugar tong on that date however when she presented to me in clinic she had fallen out into a valgus position and subsequent fracture blisters as well as skin necrosis was forming at the medial and lateral aspects of the malleoli as well as the medial aspect of the heel. At this time it was determined that due to the soft tissue complications we would need to delay surgical intervention on May 30 the patient was brought into the OR for closed reduction with manipulation of the right lower extremity and reapplication of the splint. At this time the fracture was brought out to adequate length and maintained in this position until the date of definitive fixation earlier today. She is admitted today for monitoring of postoperative pain as well as soft tissue complications. She did handled the procedure and the anesthesia without complication however I would like to ensure that her pain is under control and we can assess for acute blood loss postoperatively. She currently denies any constitutional symptoms of infection. Luna is in place. She denies any shortness of breath or chest pain. She is still complaining of no pain following her popliteal and saphenous blocks. She has no other pedal complaints at this time. Medications & Allergies Home Medications: Home Medication List Allopurinol 300 mg [Zyloprim 300 mg] 300 mg PO DAILY 09/21/14 [History Confirmed 06/16/20] Levothyroxine Sodium 50 Mcg [Synthroid 50 Mcg] 25 mcg PO DAILY 09/21/14 [History Confirmed 06/16/20] Buspirone HCl 5 mg [Buspar 5 mg] 10 mg PO DAILY 02/25/15 [History Confirmed 06/16/20] Clopidogrel Bisulfate 75 mg [PLAVIX 75 MG Tablet] 75 mg PO QAM 11/18/16 [History Confirmed 06/16/20] Fluoxetine HCl [Prozac] 40 mg PO DAILY 11/18/16 [History Confirmed 06/16/20] Ascorbic Acid [Vitamin C] 1,000 mg PO BID 05/23/20 [History Confirmed 06/16/20] Atorvastatin Calcium [Lipitor] 20 mg PO DAILY 05/23/20 [History Confirmed 06/16/20] Bumetanide [Bumex] 2 mg PO DAILY 05/23/20 [History Confirmed 06/16/20] Carvedilol 12.5 mg [Coreg 12.5 mg] 0.5 tab PO BID 05/23/20 [History Confirmed 06/16/20] Cyanocobalamin (Vitamin B-12) [B-12] 1,000 mcg PO DAILY 05/23/20 [History Confirmed 06/16/20] Omeprazole 40 mg PO DAILY 05/23/20 [History Confirmed 06/16/20] Potassium Chloride [Klor-Con M20] 20 meq PO DAILY 05/23/20 [History Confirmed 06/16/20] Temazepam 15 mg [Restoril 15 MG] 1 tab PO HS 05/23/20 [History Confirmed 06/16/20] Acetaminophen 325 mg [Tylenol 325 mg] 325 mg PO Q4HPRN PRN #60 tablet 05/30/20 [Rx Confirmed 06/01/20] Aspirin EC 325 mg [Ecotrin 325 MG] 325 mg PO DAILY 05/30/20 [History Confirmed 06/16/20] Doxycycline Hyclate 100 mg PO Q12H #20 cap 05/30/20 [Rx Confirmed 06/16/20] Hydrocodone/APAP 5-325 Tab^^^ [[place] 5-325 Tablet^^^] 1 tab PO Q6HPRN PRN #30 tablet MDD 6 05/30/20 [Rx Confirmed 06/16/20] Oxycodone HCl/Acetaminophen [Percocet 10-325 mg Tablet] 1 each PO Q4HPRN PRN 05/30/20 [History Confirmed 06/16/20] Allergies/Adverse Reactions: Allergies Allergy/AdvReac Type Severity Reaction Status Date / Time levofloxacin [From Levaquin] Allergy Intermediate Skin Verified 06/01/20 14:18 Irritation Penicillins Allergy Mild Hives Verified 06/01/20 14:18 acetaminophen [From [place]] AdvReac Nausea Verified 06/01/20 14:18 hydrocodone [From [place]] AdvReac Nausea Verified 06/01/20 14:18 - Past Medical History Past Medical History: Yes Neurological History: Migraines ENT History: No Pertinent History Cardiac History: Coronary Artery Disease, High Cholesterol, Hypertension, Myocardial Infarction ([place]) Respiratory History: No Pertinent History Endocrine Medical History: Hypothyroidism Musculoskelatal History: No Pertinent History, Other GI Medical History: Gallbladder Disease History: Renal Disease, Other Pyscho-Social History: Anxiety, Depression Reproductive Disorders: No Pertinent History Comment: ACUTE KIDNEY FAILURE RESOLVED, GOUT - Female History Are you now?: No - Past Surgical History Past Surgical History: Yes Neuro Surgical History: No Pertinent History Cardiac History: Cardiac Catheterization, Cardiac Stent Respiratory Surgery: No Pertinent History GI Surgical History: Appendectomy, Cholecystectomy Genitourinary Surgical Hx: No Pertinent History Musculskeletal Surgical Hx: Other Female Surgical History: Tubal Ligation Other Surgical History: closed reduction of left ankle. - Social History Smoking Status: Never smoker Exposure to second hand smoke: No Alcohol: None Drug Use: none Significant Family History: heart disease, hypertension Physical Exam - Narrative Narrative Physical Exam: Podiatry Physical Exam: Lower extremity examination limited due to posterior splint with dressings applied to the right lower extremity. There is no evidence of strikethrough. Her capillary refill time is within normal limits. She is able to wiggle her toes. There is no pain on posterior calf compression. Results - Radiology Impressions Radiology Exams & Impressions: Radiology Procedures Category Date Time Status ANKLE (2V) Routine Exams 06/16/20 08:29 Completed FLUOROSCOPY UP TO 1 HR Routine Exams 06/16/20 08:29 Completed - Other Procedures and Tests Respiratory Therapy 06/17/20 22:51 Incentive Spirometry UD Assessment/Plan (1) Postoperative pain Current Visit: Yes Status: Acute Code(s): G89.18 - OTHER ACUTE POSTPROCEDURAL PAIN (2) Trimalleolar fracture of ankle, closed Current Visit: No Status: Acute Qualifiers: Encounter type: initial encounter Laterality: right Qualified Code(s): S82.851A - Displaced trimalleolar fracture of right lower leg, initial encounter for closed fracture Assessment & Plan: Patient is doing well status post trimalleolar fracture open reduction internal fixation of the right lower extremity. Postoperative orders: Admission Will defer to medicine for medical management. Thank you for assistance! Nonweightbearing to the right lower extremity full weightbearing to the left lower extremity with transfers PT OT treat and eval. Case management eval for placement to rehab facility Pain control Ultram 50 mg every 6 hours will adjust if necessary Postoperative DVT prophylaxis 325 mg aspirin daily p.o. Postoperative antibiotics prophylaxis Keflex 500 mg every 6 hours for 10 days postoperatively Lactated Ringer's 50 cc/h Leave dressing clean dry and intact. No alterations are to be made to the dressing in any way. This dressing is to remain intact until postoperative visit #1 Elevate operative extremity the level of the heart to reduce inflammation Ice behind the knee to reduce inflammation and pain Code(s): S82.853A - DISPLACED TRIMALLEOLAR FRACTURE OF UNSP LOWER LEG, INIT
--- NOTE | 2020-06-18 07:13 | PCM.NOTE ---
Podiatry Narrative Note Podiatry Narrative Note: Subjective: Isabelle is a very pleasant 75-year-old female who is being seen in follow-up for postoperative pain status post trimalleolar fracture open reduction internal fixation that occurred on June 16, 2020. She currently denies any constitutional symptoms of infection. She denies any shortness of breath or chest pain. She also denies that there is any pain to the calf. There is a Luna in place at this time and we are taking precautionary measures for the possibility of a UTI. Vital signs stable. She denies any pedal pain at this time. Objective: Vitals oral temperature 97.9 respiratory rate 18 pulse ox 95 on room air blood pressure 109/52 blood pressure mean 71 Hematology White blood cell count 10.8 Red blood cell count 3.71 hemoglobin 10.3 hematocrit 33.2 MCV 89.5 MCH 27.8 MCHC 31.0 RDW 15.7 platelet count 231 MPV 9.4 Chemistry sodium 134 potassium 4.2 chloride 100 carbon dioxide 29 anion gap 9.4 bun 20 creatinine 0.88 estimated GFR greater than 60 glucose 142 hemoglobin A1c 5.43 calcium 8.8 prealbumin 18.53 Physical exam: Physical exam limited due to postoperative dressing to the right lower extremity. She is able to wiggle toes and capillary refill time is within normal limits. There is no pain on medial to lateral compression of the calf. Assessment Trimalleolar [id number] post trimalleolar fracture open reduction internal fixation postop day #2 date of surgery 06/16/2020 Postoperative pain-currently being managed Plan: Patient examination and evaluation Case management working on placement at this time PT OT to eval and treat Pain management DVT prophylaxis Infection prophylaxis monitor white blood cell count 10.8 yesterday. Possibly i ncreased due to postoperative stress will monitor. Continue Keflex 500 mg every 6 hours Normal diet We will plan for discharge when okay with medicine and case management has come up with a suitable plan. Until then we will follow closely
[2020-06-18] MEDS: Ecotrin 325 MG PO SCH (09:44)
[2020-06-18] MEDS: Coreg 6.25 MG PO SCH ×2 (09:44→21:28)
[2020-06-18] MEDS: BUMEX 1 MG PO SCH (09:44)
[2020-06-18] MEDS: PLAVIX 75 MG Tablet PO SCH (09:44)
[2020-06-18] MEDS: Vibramycin 100 MG PO SCH ×2 (09:44→21:27)
[2020-06-18] MEDS: Vitamin B-12 500 MCG PO SCH (09:44)
[2020-06-18] MEDS: BUSPAR 5 MG PO SCH (09:44)
[2020-06-18] MEDS: Vitamin C 500 MG PO SCH ×2 (09:44→21:28)
[2020-06-18] MEDS: ZOCOR 20MG PO SCH (09:45)
[2020-06-18] MEDS: Klor Con 10 MEQ PO SCH (09:45)
[2020-06-18] MEDS: Prozac 20 MG PO SCH (09:45)
[2020-06-18] MEDS: Protonix 40MG Tablet PO SCH (09:45)
[2020-06-18] MEDS: SYNTHROID 25 MCG PO SCH (09:45)
[2020-06-18] MEDS: ZYLOPRIM 300 MG PO SCH (09:45)
[2020-06-18] MEDS: Lactated Ringers 1,000 ML IV SCH (11:26)
[2020-06-18] MEDS: OXYCODONE-ACETAMINOPHEN 10-325 PO PRN (16:17)
[2020-06-18] MEDS: Restoril 15 MG PO SCH (21:28)
[2020-06-19] MEDS: KEFLEX 500 MG PO SCH ×4 (05:01→23:01)
[2020-06-19] MEDS: ULTRAM 50 MG PO SCH ×4 (05:01→23:01)
[2020-06-19] MEDS: Lactated Ringers 1,000 ML IV SCH (07:19)
[2020-06-19] MEDS: BUSPAR 5 MG PO SCH (10:03)
[2020-06-19] MEDS: ZOCOR 20MG PO SCH (10:04)
[2020-06-19] MEDS: PLAVIX 75 MG Tablet PO SCH (10:04)
[2020-06-19] MEDS: Vibramycin 100 MG PO SCH ×2 (10:04→23:01)
[2020-06-19] MEDS: Klor Con 10 MEQ PO SCH (10:04)
[2020-06-19] MEDS: Vitamin B-12 500 MCG PO SCH (10:04)
[2020-06-19] MEDS: Coreg 6.25 MG PO SCH ×2 (10:04→23:01)
[2020-06-19] MEDS: BUMEX 1 MG PO SCH (10:04)
[2020-06-19] MEDS: Vitamin C 500 MG PO SCH ×2 (10:04→23:02)
[2020-06-19] MEDS: Ecotrin 325 MG PO SCH (10:04)
[2020-06-19] MEDS: SYNTHROID 25 MCG PO SCH (10:04)
[2020-06-19] MEDS: Prozac 20 MG PO SCH (10:04)
[2020-06-19] MEDS: Protonix 40MG Tablet PO SCH (10:04)
[2020-06-19] MEDS: ZYLOPRIM 300 MG PO SCH (10:05)
[2020-06-19] MEDS: OXYCODONE-ACETAMINOPHEN 10-325 PO PRN (10:18)
--- NOTE | 2020-06-19 11:16 | OP ---
SURGERY DATE: 06/16/2020 1226 PREOPERATIVE DIAGNOSIS: Trimalleolar fracture of the right lower extremity. POSTOPERATIVE DIAGNOSIS: Trimalleolar fracture of the right lower extremity. PROCEDURE: Open reduction internal fixation of the right ankle. SURGEON: Christophe Williamson DPM. BREAKDOWN MILL OPERATOR: None. ANESTHESIA: General with postoperative popliteal and saphenous block. HEMOSTASIS: Thigh tourniquet set to 350 mm of [place] for 118 minutes. ESTIMATED BLOOD LOSS: Less than 50 cc. MATERIALS: Anatomical fibular plate with combination of locking and nonlocking screws as well as one cannulated 4-0 medial malleolar screw, 2-0 Vicryl and skin price. INJECTABLES: See anesthesia report. INDICATION FOR SURGERY: The patient suffered an ankle fracture in the later aspect of April. She presented to the emergency department where she was reduced and placed in a posterior splint. Due to some factors of noncompliance and some factors of miscommunication with the longterm, the patient sustained fell into a valgus angulation of the right ankle following the reduction and reduction was lost. However, she did not present until one week after and skin necrosis began to occur at the medial and lateral aspect of the fracture site. After reduction on 05/30/2020 in the OR and under anesthesia closed reduction, she had been followed closely by me and we have delayed the surgery for over a month at this time to prevent any soft tissue complications. At this time the soft tissue has not improved and it is deemed necessary to move forward with surgical intervention at this time in order to reduce the fracture sites in a minimally invasive-type fashion. The patient understands the risks that are associated with the procedure including soft tissue complications, infection and possible need for removal of hardware if the surgical wounds dehisce. She was not an adequate candidate for external fixation due to the fracture blisters that overlie her medial aspect of her calcaneus. DESCRIPTION OF PROCEDURE AND FINDINGS: Following adequate assessment by anesthesia team, the patient was brought into the OR and placed on the OR table in the supine position. General anesthesia was administered at this time. The patient's right lower extremity was prepped and draped in the typical sterile fashion and the right lower extremity was lowered onto the surgical field. Initially on inspection, the fracture blisters had not improved although they have shown small signs of epithelialization particularly to the lateral aspect. At the medial aspect the soft tissue quality was still poor. The decision was made to open on the lateral aspect in attempt to do percutaneous reduction and fixation from the medial aspect. At this time the fluoroscopic imaging was brought in to assess the site of the fracture which was located in a posterior, superior to distal anterior fashion. An incision was made at the lateral aspect utilizing a 10 blade. Caution was made to not provide any damage to the neurovascular structures at this area which was achieved using blunt and sharp dissection. All bleeders were cauterized utilizing Bovie. Once direct visualization of the fibula was identified it appeared as though portions of the fracture had undergone some healing process as well as taken on some valgus angulation. A dental pick was utilized to clear any of the debris within the fracture site at this time, this area was then lavaged in order to identify the fracture itself. There was a significant amount of difficulty in order to reduce the fracture so the decision to utilize a push-pull technique with fixation in the distal aspect of the fibula and a screw outside the plate and [place] hand spring former to distract the soft tissue to reduce the fracture site adequately. Following this procedure there was deemed to be adequate length of the fibula as compared to her contralateral side and fixation was applied in a combination of locking and nonlocking screws to the fibula. This was checked under fluoroscopic imaging and deemed to be adequate at this time. Attention then was directed to the medial aspect of the ankle where under fluoroscopy again the medial malleolar fracture was assessed and deemed to be somewhat comminuted. However the soft tissue quality made it difficult in order to reduce this and also open the fracture site. At this time decision was made to throw a single percutaneous medial malleolar screw cannulated in nature 4-0 in order to secure the fragment in an adequate position. Once this was achieved it was checked under fluoroscopic imaging and deemed to be adequate. The tourniquet was dropped at 118 minutes. A postoperative dressing consisting of Betadine, Adaptic, 4x4's, Kerlix, VIRY, cast padding, posterior splint and more VIRY was applied to the right lower extremity in order to hold her in a neutral position. The patient was reversed from the anesthesia which she handled as well as the operation. She was returned to the postoperative anesthesia care unit with vital signs stable and vascular status intact. A postoperative block was provided by the anesthesia team in the PACU consisting of a pop-block and a saphenous block. Postoperative protocol as follows: 1) Keep postoperative dressing clean, dry and intact. Do not alter dressings in any way without consulting Dr. Christophe goss. Dressings to remain clean and dry throughout the postoperative course. 2) Elevate the lower extremity above the level of the heart to reduce inflammation and pain. 3) Ice behind the knee to reduce inflammation. 4) Nonweight bearing to the right lower extremity. 5) Full weight bearing to the left for transfers otherwise wheelchair for mobilization. 6) Physical therapy, occupational therapy to treat and evaluate. 7) Postoperative pain control: Ultram 50 mg every 4 hours for breakthrough pain, alternate with ibuprofen 600 mg every 6 hours. 8) Postoperative infection prophylaxis: Keflex 500 mg every 6 hours for 10 days. 9) Postoperative deep venous thrombosis prophylaxis: Aspirin 325 mg p.o. until weight bearing. 10) Follow up in clinic within one week of procedure. 11) Hold patient for observation. 12) Lactated Ringer's 50 cc per hour. 13) Monitor hemoglobin and hematocrit. 14) Consult to case management.
--- NOTE | 2020-06-19 15:19 | PCM.NOTE ---
Date and Time: 06/19/20 1513 Subjective Assessment: Pt gets quite fatigued when she gets out of bed and back in. Caitlin po. Is having some constipation but did have a BM yesterday. - Review of Systems Constitutional: No Fever Abdominal/Gastrointestinal: No Vomiting Objective Exam General Appearance: no apparent distress, alert, obese Neurologic Exam: oriented x 3, cooperative Skin Exam: normal color, warm, dry, No rash Wound Assessment: Skin/Wound Assessment Wound/Incision Assessment Start: 06/16/20 17:41 Text: Status: Active Freq: Q6H Protocol: Document 06/19/20 14:00 AR (Rec: 06/19/20 14:14 AR [id number]) Wound/Incision Assessment Right Lower Extremity Wound Assessment Shift Assessment Wound Type Incision Wound Stage Non Pressure Wound Dressing Status Dry & Intact Comment DRESSING CDI Ears, Nose, Throat Exam: moist mucous membranes Neck Exam: normal inspection Respiratory Exam: normal breath sounds, lungs clear, No crackles/rales, No rhonchi, No wheezing Cardiovascular Exam: regular rate/rhythm, normal heart sounds, murmur (i/vi sys murmur) Extremity Exam: other (RLE is wrapped) Back Exam: normal inspection, No rash OBJECTIVE DATA Vital Signs: Vital Signs - 24 hr Temp Pulse Resp BP Pulse Ox 06/19/20 12:00 98.4 F 85 20 130/75 98 06/19/20 10:50 98 06/19/20 07:21 98.1 F 68 18 122/57 98 06/19/20 07:15 99 06/19/20 04:00 97.6 F 70 16 110/56 97 06/19/20 00:00 97.5 F 69 16 120/58 97 06/18/20 20:44 97 06/18/20 20:00 97.7 F 72 17 108/52 95 06/18/20 16:00 97.5 F 80 18 138/61 99 Pain Assessment - Last Documented Pain Intensity 5 Pain Scale Used [facility] Intake and Output: Intake & Output 06/17/20 06/18/20 06/19/20 06/20/20 11:59 11:59 11:59 11:59 Intake Total 1308 2354 2054 Output Total 7023 5565 900 Balance -367 -521 1154 Weight 98.5 kg Multi-Disciplinary Progress Notes: Multi-Disciplinary Progress Notes 06/19/20 13:52 Occupational Therapy Note by Bobbi Randle Orders for Occupational Therapy received. Chart review performed and OTR coordinated with DPT regarding patient performance. Will defer patient to PT at this time, but continue to monitor should the need for skilled OT services arise. Initialized on 06/19/20 13:52 - END OF NOTE 06/19/20 13:08 Case Management Note by Harriet Shoemaker D/T PATIENT POSSIBLY NEEDING EXTENSIVE REHAB STAY AGAIN- WILL SEND DOCUMENTATION TO [facility] FOR PRECERT Initialized on 06/19/20 13:08 - END OF NOTE Assessment/Plan (1) HTN (hypertension) Current Visit: No Status: Acute Qualifiers: Hypertension type: essential hypertension Qualified Code(s): I10 - Essential (primary) hypertension Assessment & Plan: well controlled here. Code(s): I10 - ESSENTIAL (PRIMARY) HYPERTENSION (2) Postoperative pain Current Visit: Yes Status: Acute Assessment & Plan: Appears to be doing well. Code(s): G89.18 - OTHER ACUTE POSTPROCEDURAL PAIN (3) Status post open reduction with internal fixation (ORIF) of fracture of ankle Current Visit: Yes Status: Acute Code(s): Z98.890 - OTHER SPECIFIED POSTPROCEDURAL STATES; Z87.81 - PERSONAL HISTORY OF (HEALED) TRAUMATIC FRACTURE (4) Coronary artery disease Current Visit: No Status: Chronic Qualifiers: Coronary Disease-Associated Artery/Lesion type: [place] artery [place] vs. transplanted heart: [place] heart Associated angina: without angina Qualified Code(s): I25.10 - Atherosclerotic heart disease of [place] coronary artery without angina pectoris Code(s): I25.10 - ATHSCL HEART DISEASE OF [place] CORONARY ARTERY W/O ANG PCTRS
[2020-06-19] MEDS: Colace 100 MG PO PRN (18:07)
[2020-06-19] MEDS: Restoril 15 MG PO SCH (23:01)
[2020-06-20] MEDS: Lactated Ringers 1,000 ML IV SCH ×2 (02:57→23:08)
[2020-06-20] MEDS: KEFLEX 500 MG PO SCH ×4 (05:35→22:51)
[2020-06-20] MEDS: ULTRAM 50 MG PO SCH ×4 (05:35→22:51)
[2020-06-20] MEDS: OXYCODONE-ACETAMINOPHEN 10-325 PO PRN (07:49)
--- NOTE | 2020-06-20 09:03 | PCM.NOTE ---
Date and Time: 06/20/20857 Subjective Assessment: Pt's leg is starting to hurt today. She has ordered breakfast. - Review of Systems Constitutional: No Fever Abdominal/Gastrointestinal: No Vomiting Musculoskeletal: Joint Pain Objective Exam General Appearance: no apparent distress, alert, obese Neurologic Exam: oriented x 3, cooperative Skin Exam: normal color, warm, dry, No rash Wound Assessment: Skin/Wound Assessment Wound/Incision Assessment Start: 06/16/20 17:41 Text: Status: Active Freq: Q6H Protocol: Document 06/20/20 08:00 RDUHNE (Rec: 06/20/20 08:06 [email or web address] [id number]) Wound/Incision Assessment Right Lower Extremity Wound Assessment Shift Assessment Wound Type Incision Wound Stage Non Pressure Wound Dressing Status Dry & Intact Comment DRESSING CDI Ears, Nose, Throat Exam: moist mucous membranes Neck Exam: normal inspection Respiratory Exam: normal breath sounds, lungs clear, No crackles/rales, No rhonchi, No wheezing Cardiovascular Exam: regular rate/rhythm, normal heart sounds, No murmur Extremity Exam: other (RLE wrapped) Back Exam: normal inspection, No rash OBJECTIVE DATA Vital Signs: Vital Signs - 24 hr Temp Pulse Resp BP Pulse Ox 06/20/20 08:09 96 06/20/20 07:00 95.9 F 71 18 138/65 96 06/20/20 03:00 97.8 F 74 16 135/58 94 L 06/19/20 23:00 97.6 F 72 16 142/63 94 L 06/19/20 19:26 95 06/19/20 19:22 97 F 76 18 124/56 95 06/19/20 16:00 98.5 F 82 20 112/54 98 06/19/20 12:00 98.4 F 85 20 130/75 98 06/19/20 10:50 98 Pain Assessment - Last Documented Pain Intensity 8 Pain Scale Used 0-10 Pain Scale Intake and Output: Intake & Output 06/17/20 06/18/20 06/19/20 06/20/20 11:59 11:59 11:59 11:59 Intake Total 1308 2354 2054 1779 Output Total 1675 8875 010 3280 Balance -216 -332 1138 -0717 Weight 98.5 kg Multi-Disciplinary Progress Notes: Multi-Disciplinary Progress Notes 06/19/20 13:52 Occupational Therapy Note by Bobbi Randle Orders for Occupational Therapy received. Chart review performed and OTR coordinated with DPT regarding patient performance. Will defer patient to PT at this time, but continue to monitor should the need for skilled OT services arise. Initialized on 06/19/20 13:52 - END OF NOTE 06/19/20 13:08 Case Management Note by Harriet Shoemaker D/T PATIENT POSSIBLY NEEDING EXTENSIVE REHAB STAY AGAIN- WILL SEND DOCUMENTATION TO [facility] FOR PRECERT Initialized on 06/19/20 13:08 - END OF NOTE Assessment/Plan (1) Postoperative pain Current Visit: Yes Status: Acute Assessment & Plan: Per Dr. Saeed, thank you. Code(s): G89.18 - OTHER ACUTE POSTPROCEDURAL PAIN (2) HTN (hypertension) Current Visit: No Status: Chronic Qualifiers: Hypertension type: essential hypertension Qualified Code(s): I10 - Essential (primary) hypertension Assessment & Plan: Well controlled here, without episodes of hypotension. She will likely be ready to discharge to [facility] tomorrow. Code(s): I10 - ESSENTIAL (PRIMARY) HYPERTENSION (3) Status post open reduction with internal fixation (ORIF) of fracture of ankle Current Visit: Yes Status: Acute Code(s): Z98.890 - OTHER SPECIFIED POSTPROCEDURAL STATES; Z87.81 - PERSONAL HISTORY OF (HEALED) TRAUMATIC FRACTURE (4) Coronary artery disease Current Visit: No Status: Chronic Qualifiers: Coronary Disease-Associated Artery/Lesion type: [place] artery [place] vs. transplanted heart: [place] heart Associated angina: without angina Qualified Code(s): I25.10 - Atherosclerotic heart disease of [place] coronary artery without angina pectoris Code(s): I25.10 - ATHSCL HEART DISEASE OF [place] CORONARY ARTERY W/O ANG PCTRS
[2020-06-20] MEDS: Vitamin C 500 MG PO SCH ×2 (09:45→22:51)
[2020-06-20] MEDS: ZYLOPRIM 300 MG PO SCH (09:45)
[2020-06-20] MEDS: PLAVIX 75 MG Tablet PO SCH (09:45)
[2020-06-20] MEDS: BUMEX 1 MG PO SCH (09:45)
[2020-06-20] MEDS: Vibramycin 100 MG PO SCH ×2 (09:45→22:51)
[2020-06-20] MEDS: SYNTHROID 25 MCG PO SCH (09:45)
[2020-06-20] MEDS: ZOCOR 20MG PO SCH (09:45)
[2020-06-20] MEDS: Vitamin B-12 500 MCG PO SCH (09:45)
[2020-06-20] MEDS: Protonix 40MG Tablet PO SCH (09:45)
[2020-06-20] MEDS: Ecotrin 325 MG PO SCH (09:45)
[2020-06-20] MEDS: BUSPAR 5 MG PO SCH (09:45)
[2020-06-20] MEDS: Klor Con 10 MEQ PO SCH (09:46)
[2020-06-20] MEDS: Prozac 20 MG PO SCH (09:46)
[2020-06-20] MEDS: Coreg 6.25 MG PO SCH ×2 (09:46→22:51)
[2020-06-20] MEDS: Restoril 15 MG PO SCH (22:51)
[2020-06-20] MEDS: Colace 100 MG PO PRN (22:51)
[2020-06-21] MEDS: KEFLEX 500 MG PO SCH ×3 (05:45→18:26)
[2020-06-21] MEDS: ULTRAM 50 MG PO SCH ×3 (05:45→18:26)
--- NOTE | 2020-06-21 08:51 | PCM.DS ---
Discharge Summary Date of Admission: 06/16/20 16:55 Admitting Physician: ALEJANDRO HARRIS Primary Care Provider: ALEJANDRO HARRIS Allergies Allergies levofloxacin [From Levaquin] Allergy (Intermediate, Verified 06/01/20 14:18) Skin Irritation STREAKS RUNNING UP VEIN Penicillins Allergy (Mild, Verified 06/01/20 14:18) Hives acetaminophen [From [place]] Adverse Reaction (Verified 06/01/20 14:18) Nausea hydrocodone [From [place]] Adverse Reaction (Verified 06/01/20 14:18) Nausea Hospital Summary - Hospital Course Hospital Course: patient had open reduction and internal fixation of trimalleolar fracture of right ankle, her pain is currently controlled and she has no signs or symptoms of infection at this time. her postoperative pain is currently well controlled and her plan is to discharge to [facility] for therapy until she is able to bear weight and ambulate and care for herself at home. her bp has been well controlled, she has no angina or shortness of breath. - Vitals & Intake/Output Vital Signs: Vital Signs Temperature 97.7 F 06/21/20 07:30 Pulse Rate 79 06/21/20 07:30 Respiratory Rate 18 06/21/20 07:30 Blood Pressure 127/58 06/21/20 07:30 O2 Sat by Pulse Oximetry 95 06/21/20 07:30 Intake & Output: Intake & Output 06/18/20 06/19/20 06/20/20 06/21/20 11:59 11:59 11:59 11:59 Intake Total 2354 2054 1779 1546 Output Total 2875 900 3700 2200 Balance -521 1154 -1921 -654 Weight 98.5 kg - Lab Result Diagrams: 06/17/20 06:00 06/17/20 06:00 - Procedures and Test Procedures and Tests throughout Hospitalization: Therapy Orders & Screens 06/16/20 17:30 OT Eval and Treat ( Order) ONCE Comment: Consulting Provider: ANAY LOVELACE Physician Instructions: Reason For Exam: Evaluate: Yes Treat: Yes Reason for Evaluation: post op right foot Diagnosis: Right ankle pain PT Eval & Treat ( Order) ONCE Reason for Eval:: asses and eval post op right foot Diagnosis: Right ankle pain 06/16/20 17:41 OT Screen per Nursing Assess ONCE Comment: Protocol Order Physician Instructions: Greater than 3 points order OT Admission Screening Reason For Exam: Triggered on Admission Diagnosis: Right ankle pain Open Wound/Cellutlitis/Pressure Ulcers: No Acute Fx/ORIF/Change in wt bearing status: Yes Severe MUSCULOSKELETAL pain: No ADL Dysfunction: Yes Acute CVA w/Hemiparesis/Hemiplegia: No Decreased Functional Mobility/Strength: Yes Sprain/Strain: No Acute Post-op Mobility Dysfunction: Yes Total Points: 12 PT Screen per Nursing Assess ONCE Comment: Protocol Order Physician Instructions: Greater than 3 points order PT Admission Screenin Reason For Exam: Triggered on Admission Diagnosis: Right ankle pain Open Wound/Cellutlitis/Pressure Ulcers: No Acute Fx/ORIF/Change in wt bearing status: Yes Severe MUSCULOSKELETAL pain: No ADL Dysfunction: Yes Acute CVA w/Hemiparesis/Hemiplegia: No Decreased Functional Mobility/Strength: Yes Sprain/Strain: No Acute Post-op Mobility Dysfunction: Yes Total Points: 12 06/16/20 23:33 Oxygen NASAL CANNULA 2 lpm Comment: Diagnosis: Right ankle pain 06/17/20 22:51 Incentive Spirometry UD Comment: Diagnosis: Right ankle pain Discharge Exam General Appearance: no apparent distress, obese Neurologic Exam: alert, oriented x 3 Respiratory Exam: normal breath sounds, lungs clear, No respiratory distress Cardiovascular Exam: regular rate/rhythm, normal heart sounds Gastrointestinal/Abdomen Exam: soft, No tenderness, No mass Extremity Exam: other (splint clean, dry, intact) Wound Assessment: Skin/Wound Assessment Wound/Incision Assessment Start: 06/16/20 17:4 1 Text: Status: Active Freq: Q6H Protocol: Document 06/21/20 02:00 AW (Rec: 06/21/20 02:36 AW [id number]) Wound/Incision Assessment Right Lower Extremity Wound Assessment Shift Assessment Wound Type Incision Wound Stage Non Pressure Wound Dressing Status Dry & Intact Comment DRESSING CDI Final Diagnosis/Problem List - Final Discharge Diagnosis/Problem (1) Postoperative pain Current Visit: Yes Status: Acute Code(s): G89.18 - OTHER ACUTE POSTPROCEDURA L PAIN (2) Status post open reduction with internal fixation (ORIF) of fracture of ankle Current Visit: Yes Status: Acute Code(s): Z98.890 - OTHER SPECIFIED POSTPROCEDURAL STATES; Z87.81 - PERSONAL HISTORY OF (HEALED) TRAUMATIC FRACTURE (3) Coronary artery disease Current Visit: No Status: Chronic Code(s): I25.10 - ATHSCL HEART DISEASE OF [place] CORONARY ARTERY W/O ANG PCTRS (4) HTN (hypertension) Current Visit: No Status: Chronic Code(s): I10 - ESSENTIAL (PRIMARY) HYPERTENSION - Discharge Disposition: DC TO [facility] Condition: Stable Prescriptions: New Docusate Sodium 100 mg [Colace 100 MG] 100 mg PO BIDPRN PRN #60 capsule PRN Reason: Constipation Cephalexin Mh 500 mg [Keflex 500 mg] 500 mg PO Q6HT #40 capsule Tramadol HCl 50 mg [Ultram 50 mg] 50 mg PO Q6HT #60 tablet Continue Allopurinol 300 mg [Zyloprim 300 mg] 300 mg PO DAILY Levothyroxine Sodium 50 Mcg [Synthroid 50 Mcg] 25 mcg PO DAILY Buspirone HCl 5 mg [Buspar 5 mg] 10 mg PO DAILY Fluoxetine HCl [Prozac] 40 mg PO DAILY Clopidogrel Bisulfate 75 mg [PLAVIX 75 MG Tablet] 75 mg PO QAM Potassium Chloride [Klor-Con M20] 20 meq PO DAILY Carvedilol 12.5 mg [Coreg 12.5 mg] 0.5 tab PO BID Omeprazole 40 mg PO DAILY Bumetanide [Bumex] 2 mg PO DAILY Atorvastatin Calcium [Lipitor] 20 mg PO DAILY Ascorbic Acid [Vitamin C] 1,000 mg PO BID Cyanocobalamin (Vitamin B-12) [B-12] 1,000 mcg PO DAILY Aspirin EC 325 mg [Ecotrin 325 MG] 325 mg PO DAILY Acetaminophen 325 mg [Tylenol 325 mg] 325 mg PO Q4HPRN PRN #60 tablet PRN Reason: Pain Oxycodone HCl/Acetaminophen [Percocet 10-325 mg Tablet] 1 each PO Q4HPRN PRN #60 tablet MDD 6 PRN Reason: Pain Discontinued Temazepam 15 mg [Restoril 15 MG] 1 tab PO HS Hydrocodone/APAP 5-325 Tab^^^ [[place] 5-325 Tablet^^^] 1 tab PO Q6HPRN PRN #30 tablet MDD 6 PRN Reason: Pain Doxycycline Hyclate 100 mg PO Q12H #20 cap Follow up with: ANAY LOVELACE DPM [ACTIVE STAFF] - 1 Week ALEJANDRO HARRIS [Primary Care Provider] - 1 Week
[2020-06-21] MEDS: ZOCOR 20MG PO SCH (10:07)
[2020-06-21] MEDS: Prozac 20 MG PO SCH (10:07)
[2020-06-21] MEDS: Vitamin C 500 MG PO SCH ×2 (10:07→21:42)
[2020-06-21] MEDS: BUMEX 1 MG PO SCH (10:07)
[2020-06-21] MEDS: BUSPAR 5 MG PO SCH (10:07)
[2020-06-21] MEDS: PLAVIX 75 MG Tablet PO SCH (10:07)
[2020-06-21] MEDS: Klor Con 10 MEQ PO SCH (10:08)
[2020-06-21] MEDS: ZYLOPRIM 300 MG PO SCH (10:08)
[2020-06-21] MEDS: Vitamin B-12 500 MCG PO SCH (10:08)
[2020-06-21] MEDS: Ecotrin 325 MG PO SCH (10:08)
[2020-06-21] MEDS: SYNTHROID 25 MCG PO SCH (10:08)
[2020-06-21] MEDS: Coreg 6.25 MG PO SCH ×2 (10:08→21:42)
[2020-06-21] MEDS: Protonix 40MG Tablet PO SCH (10:08)
[2020-06-21] MEDS: OXYCODONE-ACETAMINOPHEN 10-325 PO PRN ×3 (10:14→20:14)
--- NOTE | 2020-06-21 16:19 | XRAY ---
Indication: DVT. Two-dimensional sonogram and color Doppler imaging of the major venous vessels of the right leg performed. Comparison: None No thrombus seen in the examined deep venous vessels of the right leg including greater saphenous vein. Veins demonstrate normal compressibility. Venous waveforms are normal with and without augmentation. Impression: Right leg negative for DVT.
[2020-06-21] MEDS: Lactated Ringers 1,000 ML IV SCH (20:14)
[2020-06-21] MEDS: Restoril 15 MG PO SCH (21:42)
[2020-06-22] MEDS: ULTRAM 50 MG PO SCH ×3 (05:59→12:00)
[2020-06-22] MEDS: KEFLEX 500 MG PO SCH ×3 (05:59→12:00)
--- NOTE | 2020-06-22 09:17 | PCM.DS ---
Discharge Summary Date of Admission: 06/16/20 16:55 Admitting Physician: ALEJANDRO HARRIS Primary Care Provider: ALEJANDRO HARRIS Allergies Allergies levofloxacin [From Levaquin] Allergy (Intermediate, Verified 06/01/20 14:18) Skin Irritation STREAKS RUNNING UP VEIN Penicillins Allergy (Mild, Verified 06/01/20 14:18) Hives acetaminophen [From [place]] Adverse Reaction (Verified 06/01/20 14:18) Nausea hydrocodone [From [place]] Adverse Reaction (Verified 06/01/20 14:18) Nausea Hospital Summary - Hospital Course Hospital Course: Pt is 75 yo female pt with HTN, CAD, obesity, and hx NSTEMI who was admitted for ORIF of trimalleolar francture of R ankle by Dr. Saeed, thank you. Her pain is currently controlled and she has no signs or symptoms of infection at this time. Plan is to discharge to [facility] for therapy until she is able to bear weight and ambulate and care for herself at home. Bp has been well controlled, she has no angina or shortness of breath; in fact she has had some hypotension (which led to the fall and fracture initially) so I am decreasing her coreg from 6.25 BID to 3.125mg po BID. - Vitals & Intake/Output Vital Signs: Vital Signs Temperature 97.6 F 06/22/20 06:58 Pulse Rate 78 06/22/20 06:58 Respiratory Rate 20 06/22/20 06:58 Blood Pressure 98/49 06/22/20 06:58 O2 Sat by Pulse Oximetry 98 06/22/20 06:58 Intake & Output: Intake & Output 06/19/20 06/20/20 06/21/20 06/22/20 11:59 11:59 11:59 11:59 Intake Total 2054 1779 1546 1752 Output Total 900 3700 2200 3700 Balance 1154 -1921 -654 -1948 Weight 98.5 kg - Lab Result Diagrams: 06/17/20 06:00 06/17/20 06:00 - Radiology Exams Ordered Rad Exams-Entire Visit: Radiology Procedures Category Date Time Status VENOUS UNILAT/LIMITED EXTREMIT [US] Stat Exams 06/21/20 15:55 Completed - Procedures and Test Procedures and Tests throughout Hospitalization: Therapy Orders & Screens 06/16/20 17:30 OT Eval and Treat (MD Order) ONCE Comment: Consulting Provider: ANAY LOVELACE Physician Instructions: Reason For Exam: Evaluate: Yes Treat: Yes Reason for Evaluation: post op right foot Diagnosis: Right ankle pain PT Eval & Treat (MD Order) ONCE Reason for Eval:: asses and eval post op right foot Diagnosis: Right ankle pain 06/16/20 17:41 OT Screen per Nursing Assess ONCE Comment: Protocol Order Physician Instructions: Greater than 3 points order OT Admission Screening Reason For Exam: Triggered on Admission Diagnosis: Right ankle pain Open Wound/Cellutlitis/Pressure Ulcers: No Acute Fx/ORIF/Change in wt bearing status: Yes Severe MUSCULOSKELETAL pain: No ADL Dysfunction: Yes Acute CVA w/Hemiparesis/Hemiplegia: No Decreased Functional Mobility/Strength: Yes Sprain/Strain: No Acute Post-op Mobility Dysfunction: Yes Total Points: 12 PT Screen per Nursing Assess ONCE Comment: Protocol Order Physician Instructions: Greater than 3 points order PT Admission Screenin Reason For Exam: Triggered on Admission Diagnosis: Right ankle pain Open Wound/Cellutlitis/Pressure Ulcers: No Acute Fx/ORIF/Change in wt bearing status: Yes Severe MUSCULOSKELETAL pain: No ADL Dysfunction: Yes Acute CVA w/Hemiparesis/Hemiplegia: No Decreased Functional Mobility/Strength: Yes Sprain/Strain: No Acute Post-op Mobility Dysfunction: Yes Total Points: 12 06/16/20 23:33 Oxygen NASAL CANNULA 2 lpm Comment: Diagnosis: Right ankle pain 06/17/20 22:51 Incentive Spirometry UD Comment: Diagnosis: Right ankle pain Discharge Exam General Appearance: no apparent distress, alert Neurologic Exam: oriented x 3, cooperative, normal mood/affect Eye Exam: eyes nml inspection Ears, Nose, Throat Exam: moist mucous membranes Neck Exam: normal inspection Respiratory Exam: normal breath sounds, lungs clear, No crackles/rales, No rhonchi, No wheezing Cardiovascular Exam: regular rate/rhythm, normal heart sounds, No murmur Gastrointestinal/Abdomen Exam: soft, normal bowel sounds, No tenderness Extremity Exam: other (RLE wrapped, toes warm with cap rf < 2 sec LLE no c/c/e) Skin Exam: normal color, warm, dry, No rash Wound Assessment: Skin/Wound Assessment Wound/Incision Assessment Start: 06/16/20 17:41 Text: Status: Active Freq: Q6H Protocol: Document 06/22/20 08:00 NGA (Rec: 06/22/20 08:56 MJ [id number]) Wound/Incision Assessment Right Lower Extremity Wound Assessment Shift Assessment Wound Type Incision Wound Stage Non Pressure Wound Dressing Status Dry & Intact Drainage Amount None Comment DRESSING CDI Final Diagnosis/Problem List - Final Discharge Diagnosis/Problem (1) Postoperative pain Current Visit: Yes Status: Acute Assessment & Plan: Well controlled. Code(s): G89.18 - OTHER ACUTE POSTPROCEDURAL PAIN (2) HTN (hypertension) Current Visit: No Status: Chronic Assessment & Plan: decreasing coreg; will need to be monitored daily for the next 2 weeks at [facility]. Code(s): I10 - ESSENTIAL (PRIMARY) HYPERTENSION (3) Status post open reduction with internal fixation (ORIF) of fracture of ankle Current Visit: Yes Status: Acute Code(s): Z98.890 - OTHER SPECIFIED POSTPROCEDURAL STATES; Z87.81 - PERSONAL HISTORY OF (HEALED) TRAUMATIC FRACTURE (4) Coronary artery disease Current Visit: No Status: Chronic Code(s): I25.10 - ATHSCL HEART DISEASE OF [place] CORONARY ARTERY W/O ANG PCTRS - Discharge Disposition: DC TO [facility] Condition: Stable Prescriptions: New Docusate Sodium 100 mg [Colace 100 MG] 100 mg PO BIDPRN PRN #60 capsule PRN Reason: Constipation Cephalexin Mh 500 mg [Keflex 500 mg] 500 mg PO Q6HT #40 capsule Tramadol HCl 50 mg [Ultram 50 mg] 50 mg PO Q6HT #60 tablet Carvedilol 3.125 mg [Coreg 3.125 MG] 3.125 mg PO BID #60 tablet Continue Allopurinol 300 mg [Zyloprim 300 mg] 300 mg PO DAILY Levothyroxine Sodium 50 Mcg [Synthroid 50 Mcg] 25 mcg PO DAILY Buspirone HCl 5 mg [Buspar 5 mg] 10 mg PO DAILY Fluoxetine HCl [Prozac] 40 mg PO DAILY Clopidogrel Bisulfate 75 mg [PLAVIX 75 MG Tablet] 75 mg PO QAM Potassium Chloride [Klor-Con M20] 20 meq PO DAILY Omeprazole 40 mg PO DAILY Bumetanide [Bumex] 2 mg PO DAILY Atorvastatin Calcium [Lipitor] 20 mg PO DAILY Ascorbic Acid [Vitamin C] 1,000 mg PO BID Cyanocobalamin (Vitamin B-12) [B-12] 1,000 mcg PO DAILY Aspirin EC 325 mg [Ecotrin 325 MG] 325 mg PO DAILY Acetaminophen 325 mg [Tylenol 325 mg] 325 mg PO Q4HPRN PRN #60 tablet PRN Reason: Pain Oxycodone HCl/Acetaminophen [Percocet 10-325 mg Tablet] 1 each PO Q4HPRN PRN #60 tablet MDD 6 PRN Reason: Pain Discontinued Temazepam 15 mg [Restoril 15 MG] 1 tab PO HS Carvedilol 12.5 mg [Coreg 12.5 mg] 0.5 tab PO BID Hydrocodone/APAP 5-325 Tab^^^ [[place] 5-325 Tablet^^^] 1 tab PO Q6HPRN PRN #30 tablet MDD 6 PRN Reason: Pain Doxycycline Hyclate 100 mg PO Q12H #20 cap Additional Instructions: [facility] ORDERS: PATIENT TO BE NON WEIGHT BEARING RIGHT FOOT, WEIGHT BEARING TO LEFT WHEN T RANSFERRING KEEP DRESSING CLEAN DRY AND INTACT DO NOT ALTER DRESSING WITHOUT DR. STANLEY'S KNOWLEDGE IF STRIKE THRU ON DRESSING-REINFORCE WITH ABD AND KERLEX ELEVATE FOOT ON PILLOW ROUTINE CATHETER CARE PT/OT EVAL AND TREAT REGULAR DIET PATIENT TO CONTINUE POST OP ANTIBIOTIC KEFLEX ORDERED FOR A TOTAL OF 10 DAY REGIMEN (STARTED 06/16/2020) PATIENT TO CONTINUE ON ASPIRIN 325 MG PO DAILY FOR DVT PROPHYLAXIS SEE ATTACHED MED LIST AND PAPER SCRIPTS Follow up with: ANAY LOVELACE DPM [ACTIVE STAFF] - 06/28/20 2:00 pm ALEJANDRO HARRIS [Primary Care Provider] - 1 Week
[2020-06-22] MEDS ORDERED: Coreg 3.125 MG PO SCH (10:00)
[2020-06-22] MEDS: OXYCODONE-ACETAMINOPHEN 10-325 PO PRN (10:07)
[2020-06-22] MEDS: Klor Con 10 MEQ PO SCH (10:44)
[2020-06-22] MEDS: BUMEX 1 MG PO SCH (10:44)
[2020-06-22] MEDS: Prozac 20 MG PO SCH (10:44)
[2020-06-22] MEDS: Vitamin B-12 500 MCG PO SCH (10:45)
[2020-06-22] MEDS: Protonix 40MG Tablet PO SCH (10:45)
[2020-06-22] MEDS: ZYLOPRIM 300 MG PO SCH (10:45)
[2020-06-22] MEDS: Vitamin C 500 MG PO SCH (10:45)
[2020-06-22] MEDS: SYNTHROID 25 MCG PO SCH (10:45)
[2020-06-22] MEDS: Ecotrin 325 MG PO SCH (10:45)
[2020-06-22] MEDS: BUSPAR 5 MG PO SCH (10:45)
[2020-06-22] MEDS: ZOCOR 20MG PO SCH (10:45)
[2020-06-22] MEDS: PLAVIX 75 MG Tablet PO SCH (10:45)
[2020-06-22 11:13] VITALS: BP 125/58; PULSE 85; O2SAT 94
== END 2020-06-22 12:50 | DRG 948 ==
LOC: MED SURG 06-16 10:10 → EDSTATUS 06-16 13:01 → MED SURG 06-16 16:55 → OBSVTOIN 06-16 16:55
PROVIDERS: ADMIT Family Medicine; ATTEND Podiatrist Foot & Ankle Surgery
DX: G89.18 Other acute postprocedural pain (principal); S82.851G Displaced trimalleolar fracture of right lower leg, subsequent encounter for closed fracture with delayed healing; M25.571 Pain in right ankle and joints of right foot; I10 Essential (primary) hypertension; I25.10 Atherosclerotic heart disease of native coronary artery without angina pectoris; E78.00 Pure hypercholesterolemia, unspecified; E03.9 Hypothyroidism, unspecified; R53.83 Other fatigue; Z79.899 Other long term (current) drug therapy; Z79.01 Long term (current) use of anticoagulants
CPT/HCPCS: 27822; 36415; 64450; 73600; 76000; 76942; 80048; 83036; 84134; 85027; 93971; 94760; 99100; J0360; J1100; J1170; J1885; J2405; J2704; J2795; J3010; 97110-GP; A9270-GY

== ENCOUNTER 2024-03-29 08:45 | Emergency (ER) | payer MEDICARE ==
--- NOTE | 2024-03-29 08:48 | ERPHSYRPT ---
- History of Present Illness Time Seen by Provider: 03/29/24 08:48 Source: patient, family Exam Limitations: no limitations Physician History: This is a morbidly obese 79-year-old white female patient who was brought in by private vehicle by her daughter because of chronic, persistent right hip pain. Patient fell approximately 3 weeks ago and underwent radiographic studies and was "scanned" by [facility]. Per patient report, the report was that this was negative for any acute fracture or dislocation. Patient has only been using plain Tylenol and a heating pad without much benefit. Patient has a history of gout, hypothyroidism, anxiety, coronary artery disease/coronary artery stents on Plavix, depression, hyperlipidemia, gastroesophageal reflux disease, migraine headaches and TIAs. Patient states that she is allergic to hydrocodone but can take Percocet. She also has had Dilaudid and morphine in the past without adverse effects. Patient has no urinary incontinence. Patient has no bowel incontinence. Timing/Duration: week(s) (3), other (Persistent, nonimproving right hip pain) Occured at: other Context: fall Quality: aching (3 weeks ago) Hip Pain Location: hip (R) Severity of Pain-Max: moderate Modifying Factors: Improves With: movement (Standing and walking) Symptoms prior to fall: none Associated Symptoms: denies symptoms Allergies/Adverse Reactions: levofloxacin [From Levaquin] Allergy (Intermediate, Verified 03/29/24 09:01) Skin Irritation STREAKS RUNNING UP VEIN Penicillins Allergy (Mild, Verified 03/29/24 09:01) Hives hydrocodone [From [place]] Adverse Reaction (Verified 03/29/24 09:01) Nausea Home Medications: Allopurinol 300 mg [Zyloprim 300 mg] 300 mg PO DAILY 09/21/14 [History] Levothyroxine Sodium 50 Mcg [Synthroid 50 Mcg] 25 mcg PO DAILY 09/21/14 [History] Buspirone HCl 5 mg [Buspar 5 mg] 10 mg PO DAILY 02/25/15 [History] Clopidogrel Bisulfate [PLAVIX Tablet] 75 mg PO QAM 11/18/16 [History] Fluoxetine HCl [Prozac] 40 mg PO DAILY 11/18/16 [History] Ascorbic Acid [Vitamin C] 1,000 mg PO BID 05/23/20 [History] Atorvastatin Calcium [Lipitor] 20 mg PO DAILY 05/23/20 [History] Bumetanide [Bumex] 2 mg PO DAILY 05/23/20 [History] Cyanocobalamin (Vitamin B-12) [B-12] 1,000 mcg PO DAILY 05/23/20 [History] Omeprazole 40 mg PO DAILY 05/23/20 [History] Potassium Chloride [Klor-Con M20] 20 meq PO DAILY 05/23/20 [History] Aspirin EC 325 mg [Ecotrin 325 MG] 325 mg PO DAILY 05/30/20 [History] Hx Tetanus, Diphtheria Vaccination/Date Given: Yes (2015) Hx Influenza Vaccination/Date Given: Yes (2015) Hx Pneumococcal Vaccination/Date Given: Yes Travel Risk - International Travel Have you traveled outside of the country in past 3 weeks: No - Emerging Infectious Disease Are you exhibiting symptoms associated with any current EIDs: No - Vaccine Status Hx Covid Vaccintation/Booster/Date Given: No - Review of Systems Constitutional: No Symptoms Eyes: No Symptoms Ears, Nose, & Throat: No Symptoms Respiratory: No Symptoms Cardiac: No Symptoms Abdominal/Gastrointestinal: No Symptoms Genitourinary Symptoms: No Symptoms Musculoskeletal: Fall (3 weeks ago), Joint Pain (Right hip) Neurological: No Symptoms Psychological: No Symptoms Endocrine: No Symptoms Hematologic/Lymphatic: No Symptoms Immunological/Allergic: No Symptoms All Other Systems: Reviewed and Negative - Past Medical History Pertinent Past Medical History: Yes Neurological History: Migraines, TIA ENT History: No Pertinent History Cardiac History: Coronary Artery Disease, High Cholesterol, Hypertension, Myocardial Infarction ([place]) Respiratory History: No Pertinent History Endocrine Medical History: Hypothyroidism Musculoskeletal History: No Pertinent History, Other GI Medical History: Gallbladder Disease History: Renal Disease, Other Psycho-Social History: Anxiety, Depression Female Reproductive Disorders: No Pertinent History Other Medical History: ACUTE KIDNEY FAILURE RESOLVED, GOUT - Past Surgical History Past Surgical History: Yes Neuro Surgical History: No Pertinent History Cardiac: Cardiac Catheterization, Cardiac Stent Respiratory: No Pertinent History Gastrointestinal: Appendectomy, Cholecystectomy Genitourinary: No Pertinent History Musculoskeletal: Other Female Surgical History: Tubal Ligation Other Surgical History: closed reduction of left ankle. Significant Family History: heart disease, hypertension - Social History Smoking Status: Never smoker Exposure to second hand smoke: No Alcohol Use: None Drug Use: none Patient Lives Alone: Yes - Nursing Vital Signs Nursing Vital Signs: Initial Vital Signs Temperature 97.3 F 03/29/24 08:51 Pulse Rate 75 03/29/24 08:51 Blood Pressure 144/102 03/29/24 08:51 O2 Sat by Pulse Oximetry 97 03/29/24 08:51 Pain Scale Pain Intensity 4 - Physical Exam General Appearance: no apparent distress, alert, obese Eye Exam: PERRL/EOMI, eyes nml inspection Ears, Nose, Throat Exam: normal ENT inspection, moist mucous membranes Neck Exam: normal inspection, non-tender, supple, full range of motion Respiratory Exam: airway intact, No chest tenderness, No respiratory distress Gastrointestinal Exam: No tenderness Pelvic Exam: not done Rectal Exam: not done Back Exam: normal inspection, normal range of motion, No CVA tenderness, No vertebral tenderness Extremity Exam: normal inspection, normal range of motion, pelvis stable, tenderness (Right hip to palpation), No deformities Neurologic Exam: alert, oriented x 3, cooperative, alumni 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 nml as tested, normal mood/affect, nml cerebellar function, nml station & gait, sensation nml Skin Exam: normal color, warm, dry Lymphatic Exam: No adenopathy SpO2 Interpretation: normal O2 Delivery: Room Air - Course Nursing assessment & vital signs reviewed: Yes Ordered Tests: Active Orders 24 hr Category Date Time Status PELVIS WITHOUT CONTRAST [CT] Stat Exams 03/29/24 09:07 Completed Medication Summary Discontinued Medications Generic Name Dose Route Start Last Admin Trade Name Arunq PRN Reason Stop Dose Admin Hydromorphone HCl 0.5 mg 03/29/24 09:08 03/29/24 09:17 Hydromorphone 1 Mg/1ml Inj IM 03/29/24 09:09 0.5 mg STAT ONE Administration Hydromorphone HCl Confirm 03/29/24 09:14 Hydromorphone 1 Mg/1ml Inj Administered 03/29/24 09:15 Dose 1 mg .ROUTE .STK-MED ONE Ondansetron HCl 4 mg 03/29/24 09:08 03/29/24 09:16 Zofran 4 Mg/Udtablet Orally Disintegrating PO 03/29/24 09:09 4 mg STAT ONE Administration Ondansetron HCl Confirm 03/29/24 09:11 Zofran 4 Mg/Udtablet Orally Disintegrating Administered 03/29/24 09:12 Dose 4 mg .ROUTE .STK-MED ONE Orphenadrine Citrate 60 mg 03/29/24 09:08 03/29/24 09:16 Orphenadrine Citrate 60 Mg/2 Ml Vial IM 03/29/24 09:09 60 mg STAT ONE Administration Orphenadrine Citrate Confirm 03/29/24 09:11 Orphenadrine Citrate 60 Mg/2 Ml Vial Administered 03/29/24 09:12 Dose 60 mg .ROUTE .STK-MED ONE - Progress Progress: improved, pain not gone completely Progress Note: 03/29/24 09:41 My medical decision making in the assignment of low complexity to this patient's medical issue today is based on review of the patient's past medical history, review the patient's medication list, review patient drug allergy list, history of present illness and physical findings on examination. The workup in this patient includes CAT scan of the patient's pelvis with attention to the right hip. Differential diagnosis includes but is not limited to right hip fracture, right hip dislocation, right hip contusion, pelvic fracture 03/29/24 11:[address] scan of the abdomen pelvis was interpreted by the radiologist and I reviewed the impression. The impression states chronic findings of periumbilical hernia, sigmoid diverticulosis and chronic bony findings. No acute fracture or dislocation or other acute findings on this noncontrast exam. Counseled pt/family regarding: diagnosis, need for follow-up, rad results Medical Desision Making - Independent Historian Additional History obtained from: Family - Diagnostic Testing Diagnostic test were ordered, analyzed, and reviewed by me: Yes Radiological Interpretation: Reviewed by me, Teleradiologist Report - Risk of complications The pt has a mod risk of morbidity or mortality based on: Need for prescription drug management - Departure Departure Disposition: Home Clinical Impression: Chronic right hip pain Condition: Stable Critical Care Time: No Referrals: ALEJANDRO STRONG [Primary Care Provider] - Follow up/PCP as directed Additional Instructions: Alternate ice and heat to the tender area of the right hip 3-4 times a day. Fo llow-up with the [facility] orthopedic clinic tomorrow, 03/30/2024, for further evaluation management. It is a walk-in clinic and you do not need to have an appointment. You need to be there between 8 AM and 10 AM. Continue your medications as prescribed. Forms: Ortho Referral Prescriptions: Prednisone 10 mg [Deltasone 10 mg] 10 mg PO TID #12 tablet Orphenadrine Citrate 100 mg [Norflex 100 MG Tablet] 100 mg PO BID #10 tab
[2024-03-29 09:01] VITALS: PULSE 75; TEMP 97.3
[2024-03-29] MEDS ORDERED: Norflex 60 MG/2 ML ONE (09:11)
[2024-03-29] MEDS ORDERED: ZOFRAN ODT 4 MG ONE (09:11)
[2024-03-29] MEDS ORDERED: Hydromorphone 1 mg/ml Injection ONE (09:14)
[2024-03-29] MEDS: Norflex 60 MG/2 ML IM ONE (09:16)
[2024-03-29] MEDS: ZOFRAN ODT 4 MG PO ONE (09:16)
[2024-03-29] MEDS: Hydromorphone 1 mg/ml Injection IM ONE (09:17)
--- NOTE | 2024-03-29 10:40 | XRAY ---
Indication: Right hip/sacrum pain following fall 2.5 weeks ago. Multiple contiguous axial images obtained through the pelvis with special attention to the osseous structures. Sagittal and coronal reformatted images obtained. Comparison: None Osseous structures demineralized consistent with patient's age. No acute fracture, dislocation, or suspicious bony lesions. Mild degenerative changes visualized lower lumbar spine, both SI joints, and both hips. Visualized noncontrasted soft tissues demonstrates small [place] periumbilical hernia with herniated knuckle of small bowel without incarceration/obstruction. Elsewhere mild sigmoid diverticulosis and moderate scattered aortoiliac calcifications. Tiny subcutaneous emphysema far right lateral gluteus presumed iatrogenic. Impression: Chronic findings including periumbilical hernia, sigmoid diverticulosis, arteriosclerotic disease, and chronic bony findings. No acute findings on this noncontrast exam.
[2024-03-29 11:08] VITALS: BP 132/69; O2SAT 96
== END 2024-03-29 11:15 | disposition home or self-care (01) ==
LOC: ED 08:45
DX: G89.29 Other chronic pain (principal); M25.551 Pain in right hip; E78.5 Hyperlipidemia, unspecified; I10 Essential (primary) hypertension; Z79.52 Long term (current) use of systemic steroids; Z79.899 Other long term (current) drug therapy
CPT/HCPCS: 72192; 96372; 99283; J1170; J2360; Q0162